=== PATIENT | female | born 1945 | race Caucasian/White ===

== ENCOUNTER → 2017-11-21 09:04 | Outpatient (CLI) | payer MEDICARE, SELFPAY ==
[2017-11-21 09:46] LABS: Add Manual Diff / Slide Review NO; Basophils Percent Auto 0.6 % (0-2); Eosinophils Percent Auto 1.9 % (2-4); Hematocrit 44.4 % (36-46); Hemoglobin 15.3 g/dL (12.0-16.0); Lymphocytes Percent Auto 26.3 % (25-40); Mean Corpuscular HGB Conc 34.4 % (30-36); Mean Corpuscular Hemoglobin 33.3 PG (26-34); Mean Corpuscular Volume 96.8 fL (80-100); Neutrophils Absolute Auto 4700 /uL (3000-5900); Neutrophils Percent Auto 64.2 % (50-75); Platelet Count 239 X10^3/uL (150-400); Red Blood Cell Count 4.59 X10^6/uL (4.0-5.2); Red Cell Distribution Width 14.8 % (11.6-14.8); White Blood Cell Count 7.3 X10^3/uL (4.5-11.0)
[2017-11-21 09:47] LABS: Appearance Urine UA CLEAR; Bilirubin Urine UA NEGATIVE (NEGATIVE); Color Urine UA YELLOW; Glucose Urine UA NEGATIVE (Negative); Ketones Urine UA NEGATIVE (NEGATIVE); Leukocyte Esterase Urine UA TRACE (NEGATIVE); Nitrite Urine UA Negative (Negative); Occult Blood Urine UA NEGATIVE (Negative); Protein Urine UA NEGATIVE (Negative); Urobilinogen Urine UA 0.2 E.U./dL (0.2); pH Urine UA 5.5 (4.5-8.0)
[2017-11-21 09:49] LABS: RBC Urine None Seen (0-5/HPF)
[2017-11-21 10:13] LABS: Amorphous Sediment Urine 1+; Bacteria Urine Few (2-10); Culture Indicated Urine Cult Not Indicated; Mucus Urine 2+ (Negative); Squamous Epithelial Cell Urine 10-30 /HPF; WBC Urine 0-1/HPF (0-5/HPF)
[2017-11-21 10:24] LABS: Alanine Aminotransferase 32 IU/L (9-52); Albumin 4.4 g/dL (3.5-5.0); Albumin Globulin Ratio 1.4 (1.0-2.8); Alkaline Phosphatase 83 U/L (38-126); Aspartate Aminotransferase 41 IU/L (14-36); BUN Creatinine Ratio 18.8 (6-22); Bilirubin Total 0.7 mg/dL (0.2-1.3); Calcium 9.7 mg/dL (8.4-10.2); Cholesterol 179 mg/dL (140-199); Estimated Glomerular Filt Rate > 60.0 mL/min (>60); Globulin 3.2 g/dL (1.7-4.1); Glucose 96 mg/dL (80-110); HDL Cholesterol 53 mg/dL (40-60); HEMOLYSIS < 15 (0-50); LDL Cholesterol Calculated 103 mg/dL (<100); Potassium 4.3 mmol/L (3.4-5.1); Sodium 142 mmol/L (137-145); Total Protein 7.6 g/dL (6.3-8.2); Triglycerides 114 mg/dL (35-150)
[2017-11-21 10:48] LABS: Thyroid Stimulating Hormone 3.87 uIU/mL (0.47-4.68)
== END ==
PROVIDERS: Family Provider Family Medicine; PCP Family Medicine; Visit Provider Family Medicine
DX: E78.5 Hyperlipidemia, unspecified (principal); Z51.81 Encounter for therapeutic drug level monitoring; I48.92 Unspecified atrial flutter
CPT/HCPCS: 36415; 80053; 80061; 81003; 81015; 84443; 85025

== ENCOUNTER → 2018-11-06 08:53 | Outpatient (CLI) | payer MEDICARE, SELFPAY ==
--- NOTE | 2018-11-06 08:56 | DI.RAD.S_ITS ---
PROCEDURE: XR CHEST 2V INDICATIONS: cough and shortness of breath TECHNIQUE: 2 views of the chest were acquired. COMPARISON: None. FINDINGS: Surgical changes and devices: None. Lungs and pleura: Lungs are hyperinflated and demonstrate coarse interstitial markings bilaterally diffusely. Small ovoid parenchymal opacity in the right lateral lower lung. No pleural effusions or pneumothorax. Mediastinum: Mediastinal contours are normal. Mildly prominent pulmonary arteries. Heart size is normal. Bones and chest wall: No suspicious bony abnormalities. Soft tissues appear unremarkable. IMPRESSION: 1. Hyperinflation with coarse interstitial markings suggests emphysema/chronic obstructive pulmonary disease. 2. Small ovoid right lower lobe parenchymal opacity may be rib end. However given the emphysematous changes, CT of the chest to exclude neoplasm is recommended. Dictated by: Prabha Vela M.D. on 11/06/2018 at 9:35 Approved by: Prabha Vela M.D. on 11/06/2018 at 9:38
[2018-11-06 10:26] LABS: Add Manual Diff / Slide Review NO; Basophils Absolute Auto 100 /uL (0-100); Basophils Percent Auto 0.5 % (0-2); Eosinophils Absolute Auto 200 /uL (0-450); Eosinophils Percent Auto 1.7 % (2-4); Hematocrit 45.2 % (36-46); Lymphocytes Absolute Auto 2100 /uL (1100-4500); Lymphocytes Percent Auto 20.1 % (25-40); Mean Corpuscular HGB Conc 33.1 % (30-36); Mean Corpuscular Hemoglobin 32.6 PG (26-34); Mean Corpuscular Volume 98.5 fL (80-100); Monocytes Absolute Auto 600 /uL (0-900); Monocytes Percent Auto 6.1 % (3-14); Neutrophils Absolute Auto 7500 /uL (1500-7000); Neutrophils Percent Auto 71.6 % (50-75); Platelet Count 269 X10^3/uL (150-400); Red Blood Cell Count 4.59 X10^6/uL (4.0-5.2); White Blood Cell Count 10.5 X10^3/uL (4.5-11.0)
[2018-11-06 10:52] LABS: Alanine Aminotransferase 22 IU/L (9-52); Albumin 4.2 g/dL (3.5-5.0); Albumin Globulin Ratio 1.2 (1.0-2.8); Alkaline Phosphatase 73 U/L (38-126); Aspartate Aminotransferase 28 IU/L (14-36); Bilirubin Total 0.6 mg/dL (0.2-1.3); Blood Urea Nitrogen 14 mg/dL (7-17); Calcium 9.4 mg/dL (8.4-10.2); Carbon Dioxide 25 mmol/L (22-32); Chloride 105 mmol/L (98-107); Cholesterol 171 mg/dL (140-199); Estimated Glomerular Filt Rate 54.5 mL/min (>60); Globulin 3.5 g/dL (1.7-4.1); Glucose 88 mg/dL (80-110); HDL Cholesterol 46 mg/dL (40-60); HEMOLYSIS < 15 (0-50); LDL Cholesterol Calculated 97 mg/dL (<100); Potassium 4.1 mmol/L (3.4-5.1); Sodium 140 mmol/L (137-145); Total Protein 7.7 g/dL (6.3-8.2); Triglycerides 139 mg/dL (35-150)
[2018-11-06 11:19] LABS: Thyroid Stimulating Hormone 4.71 uIU/mL (0.47-4.68)
[2018-11-06 11:41] LABS: Appearance Urine UA CLEAR; Bilirubin Urine UA NEGATIVE (NEGATIVE); Color Urine UA YELLOW; Glucose Urine UA NEGATIVE (Negative); Ketones Urine UA NEGATIVE (NEGATIVE); Leukocyte Esterase Urine UA NEGATIVE (NEGATIVE); Nitrite Urine UA NEGATIVE (Negative); Occult Blood Urine UA NEGATIVE (Negative); Protein Urine UA TRACE (Negative); Specific Gravity Urine UA 1.025 (1.000-1.035); Urobilinogen Urine UA 0.2 E.U./dL (0.2)
== END ==
PROVIDERS: Family Provider Family Medicine; PCP Family Medicine; Visit Provider Family Medicine
DX: J44.9 Chronic obstructive pulmonary disease, unspecified (principal); R05 Cough; R06.02 Shortness of breath; E78.5 Hyperlipidemia, unspecified; I10 Essential (primary) hypertension; Z51.81 Encounter for therapeutic drug level monitoring
CPT/HCPCS: 36415; 71046; 80053; 80061; 81003; 84443; 85025

== ENCOUNTER → 2018-11-12 13:40 | Outpatient (CLI) | payer MEDICARE, SELFPAY ==
--- NOTE | 2018-11-12 13:45 | DI.CT.S_ITS ---
PROCEDURE: CT CHEST W CON INDICATIONS: lung nodule TECHNIQUE: After the administration of intravenous contrast, 5 mm thick sections acquired from the pulmonary apices to the posterior costophrenic angles. 7 mm thick coronal and sagittal MIP reformats were acquired. For radiation dose reduction, the following was used: automated exposure control, adjustment of mA and/or kV according to patient size. COMPARISON: [facility], CR, XR CHEST 2V, 11/06/2018, 9:06. FINDINGS: Image quality: Excellent. Lungs and pleura: There is severe central emphysema. A 1.7 cm subpleural nodular densities present in the right lower lobe. There is diffuse interstitial prominence with subpleural septal thickening and mild fibrosis in upper lobes. No acute air space opacities. No pleural effusions or pneumothorax. There is narrowing of the right lower lobe bronchus from compression by a central mass. There is left infrahilar atelectasis. Mediastinum: Heart size is normal. No pericardial effusion. There is a 3.3 x 3.2 cm mass in the posterior mediastinum extending to the left infrahilar region. Thoracic aorta and central pulmonary arteries are normal in size. Esophagus is normal in caliber. Small hiatal hernia. Bones and chest wall: No suspicious bony lesions. No vertebral body compression fractures. No axillary or supraclavicular adenopathy by size criteria. Thyroid gland is normal. Abdomen: Visualized upper abdominal solid organs appear normal. Upper abdominal bowel loops are normal in caliber. IMPRESSION: 1. A 3.3 x 3.2 cm mass in the posterior mediastinum extending to the left infrahilar region causing narrowing of the left lower lobe bronchus and left infrahilar atelectasis. Differential diagnoses include central lung mass versus lymphadenopathy. Recommend PET CT for further torsion. 2. A 1.7 cm subpleural nodule in the right lower lobe. This can be evaluated by PET/CT at the same time. Alternatively, a short-term followup CT in 3 months may be obtained. 3. Severe emphysema. 4. Small hiatal hernia. Fleischner Society criteria for SOLID lung nodule followup. Nodule size (mm)Low-risk patientHigh-risk patient?4No follow-up neededFollow-up at 12 mo; if no change, no further follow-up>[id number] CT at 12 mo; if no change, no further follow-up needed.Initial follow-up CT at 6-12 mo, then 18-24 mo if no change. >6-8Initial follow-up CT at 6-12 mo, then 18-24 mo if no change. Initial follow-up CT at 3-6 mo, then 9-12 mo and 24 mo if no change. >8Follow-up CT at 3, 9, 24 mo. Or PET and/or biopsy.Same as for low-risk pts. Dictated by: Estelle Carroll M.D. on 11/12/2018 at 16:36 Approved by: Estelle Carroll M.D. on 11/12/2018 at 16:51
== END ==
PROVIDERS: Family Provider Family Medicine; PCP Family Medicine; Visit Provider Family Medicine
DX: R91.1 Solitary pulmonary nodule (principal); R91.8 Other nonspecific abnormal finding of lung field; J43.8 Other emphysema; J98.11 Atelectasis; K44.9 Diaphragmatic hernia without obstruction or gangrene
CPT/HCPCS: 71260; Q9967

== ENCOUNTER → 2018-12-07 09:45 | Outpatient (CLI) | payer MEDICARE, SELFPAY ==
--- NOTE | 2018-12-07 09:47 | DI.RAD.S_ITS ---
PROCEDURE: XR CHEST 2V INDICATIONS: increased SOB TECHNIQUE: 2 views of the chest were acquired. COMPARISON: [facility], CR, XR CHEST 2V, 11/06/2018, 9:06. FINDINGS: Surgical changes and devices: None. Lungs and pleura: Lungs are abnormal with a chronic interstitial prominence and relatively large lung volumes on the lateral view, likely reflecting prior smoking history. No pleural effusions or pneumothorax. Mediastinum: Mediastinal contours are normal. Heart size is normal. Bones and chest wall: No suspicious bony abnormalities. Soft tissues appear unremarkable. IMPRESSION: Presumed prior smoking history and COPD, no source of worsening shortness of breath was found otherwise. Dictated by: Anival Taylor M.D. on 12/07/2018 at 10:05 Approved by: Anival Taylor M.D. on 12/07/2018 at 10:06
== END ==
PROVIDERS: PCP Family Medicine
DX: C34.90 Malignant neoplasm of unspecified part of unspecified bronchus or lung (principal); R06.02 Shortness of breath
CPT/HCPCS: 71046

== ENCOUNTER → 2018-12-14 12:11 | Outpatient (CLI) | payer MEDICARE, SELFPAY ==
--- NOTE | 2018-12-14 12:14 | DI.RAD.S_ITS ---
PROCEDURE: XR CHEST 2V INDICATIONS: hypoxia TECHNIQUE: 2 views of the chest were acquired. COMPARISON: [facility], CT, CT CHEST W CON, 11/12/2018, 13:43. [facility], CR, XR CHEST 2V, 12/07/2018, 9:49. FINDINGS: Surgical changes and devices: None. Lungs and pleura: There is hyperinflation of the lungs with flattening of the hemidiaphragms compatible with COPD. Bilateral interstitial prominence is redemonstrated with a basilar predominance. Findings are similar to the prior study. No pleural effusions or pneumothorax. Mediastinum: Mediastinal contours are normal. Heart size is normal. Bones and chest wall: No suspicious bony abnormalities. Soft tissues appear unremarkable. IMPRESSION: 1. Findings compatible with COPD redemonstrated. No acute consolidation. Dictated by: Zay Fan M.D. on 12/14/2018 at 12:50 Approved by: Zay Fan M.D. on 12/14/2018 at 12:50
== END ==
PROVIDERS: PCP Family Medicine; Visit Provider Family Medicine
DX: C34.02 Malignant neoplasm of left main bronchus (principal); R09.02 Hypoxemia; J44.9 Chronic obstructive pulmonary disease, unspecified
CPT/HCPCS: 71046

== ENCOUNTER → 2018-12-15 10:08 | Outpatient (CLI) | payer MEDICARE, SELFPAY ==
--- NOTE | 2018-12-15 10:09 | DI.CT.S_ITS ---
PROCEDURE: CT HEAD/BRAIN WO/W CON INDICATIONS: lung cancer, staging TECHNIQUE: 4.5 mm thick angled axial sections acquired from the foramen magnum to the vertex both before and after the administration of intravenous contrast, with coronal and sagittal reformats. For radiation dose reduction, the following was used: automated exposure control, adjustment of mA and/or kV according to patient size. COMPARISON: [facility], CR, XR CHEST 2V, 12/14/2018, 12:15. [facility], CT, CT CHEST W CON, 11/12/2018, 13:43. FINDINGS: Image quality: Diagnostic, with note made of motion artifact. CSF spaces: Basal cisterns are patent. No extra-axial fluid collections. Ventricles are symmetric in size and shape. Brain: No midline shift. No intracranial bleeds or masses. No abnormal intracranial enhancement. There is cerebral volume loss for age. There is periventricular white matter chronic small vessel ischemic change. There is intracranial internal carotid artery atherosclerosis. Skull and face: Calvarium and visualized facial bones appear intact, without suspicious lesions. Sinuses: Visualized sinuses and mastoids are clear. IMPRESSION: Limited study demonstrating no masses or abnormal enhancement. If there is strong clinical concern for intracranial metastatic disease, please consider a dedicated brain MRI, without and with contrast for further evaluation (assuming that there is no contraindication). Dictated by: Chang Barry M.D. on 12/15/2018 at 12:03 Approved by: Chang Barry M.D. on 12/15/2018 at 12:05
[2018-12-15 11:45] LABS: BUN Creatinine Ratio 19.1 (6-22); Blood Urea Nitrogen 21 mg/dL (7-17); Calcium 9.3 mg/dL (8.4-10.2); Carbon Dioxide 27 mmol/L (22-32); Chloride 103 mmol/L (98-107); Estimated Glomerular Filt Rate 48.8 mL/min (>60); Glucose 81 mg/dL (80-110); HEMOLYSIS < 15 (0-50); Potassium 4.4 mmol/L (3.4-5.1); Sodium 139 mmol/L (137-145)
== END ==
LOC: CT 10:09 → LAB 10:09
PROVIDERS: PCP Family Medicine
DX: C34.90 Malignant neoplasm of unspecified part of unspecified bronchus or lung (principal); C34.32 Malignant neoplasm of lower lobe, left bronchus or lung
CPT/HCPCS: 36415; 70470; 80048; Q9967

== ENCOUNTER → 2019-01-28 09:08 | Outpatient (CLI) | payer MEDICARE, SELFPAY ==
--- NOTE | 2019-01-28 | DI.ECHO.S_ITS ---
[facility] +---------+ : : [address] : [place] : : : : [id number] : : : : Phone: [phone]+ Echocardiogram Report + + :Name: REGINO LOPEZ Study Date: 01/28/2019 Height: 65 in : :[facility] Weight: 148 lb : : Gender: Female BSA: 1.7 m2 : :: 1945 Age: 73 yrs BP: 120/84 mmHg: :Reason For Study: Atrial fibrillation - paroxysmal : :Ordering Physician: Lesli : :Hortencia Galan Performed By: Laura Tapia : + + Interpretation Summary 1) Normal left ventricular size with mildly reduced left ventricular function (EF about 45%). 2) Normal right ventricular size and low normal function. 3) No significant valvular abnormalities. 4) The right ventricular systolic pressure is estimated to be at least 48 mmHg based on an estimated right atrial pressure of 3 mm Hg. 5) No prior Echo available for comparison. Procedure: A two-dimensional transthoracic echocardiogram with color flow and Doppler was performed. There is no prior echocardiogram noted for this patient. The patient was in normal sinus rhythm during the exam. Left Ventricle: The left ventricle is normal in size. There is normal left ventricular wall thickness. There is no ventricular septal defect visualized. Left ventricular ejection fraction is estimated to be 45 +/- 5%. There is mild global hypokinesis of the left ventricle. E/A is 0.55, E/e' average is 11.8. Right Ventricle: The right ventricle is normal size. Right ventricular systolic function is at the lower limits of normal. Atria: Both atria are normal in size. There is no Doppler evidence for an interatrial shunt. Mitral Valve: The mitral valve is normal in structure and function. There is trace mitral regurgitation. Aortic Valve: The aortic valve is normal in structure and function. There is no aortic valve stenosis. No aortic regurgitation is present. Tricuspid Valve: The tricuspid valve leaflets are thin and pliable. There is mild tricuspid regurgitation. The right ventricular systolic pressure is estimated to be at least 48 mmHg based on an estimated right atrial pressure of 3 mm Hg. Pulmonic Valve: The pulmonic valve leaflets are thin and pliable; valve motion is normal. There is trace pulmonic regurgitation. Great Vessels: The aortic root is normal size. The ascending aorta is normal in size. The IVC is of normal diameter and collapses greater than 50% with a sniff. This suggests a low right atrial pressure of 3 mm Hg. Pericardium/ Pleura There is no pericardial effusion. MMode/2D Measurements & Calculations LVIDd: 4.3 cm LVOT diam: 2.0 cm LVIDs: 3.8 cm Ao root diam: 3.3 cm FS: 12.8 % Aortic Jxn: 2.0 cm EPSS: 0.79 cm asc Aorta Diam: 3.2 cm IVSd: 0.81 cm LVPWd: 0.79 cm LV ramon. diameter/BSA (cm/m^2): 2.5 LV sys. diameter/BSA (cm/m^2): 2.2 LA A2 area: 13.4 cm2 RA long axis: 3.5 cm LA A4 area: 16.0 cm2 RA area: 9.5 cm2 LA length (vol): 4.2 cm RA vol: 21.8 ml LA vol: 43.1 ml RA : 12.5 ml/m2 LA vol index: 24.8 ml/m2 IVC diam: 1.1 cm RVD1 (basal): 3.8 cm RVD2 (mid): 2.7 cm TAPSE: 1.6 cm Doppler Measurements & Calculations Ao V2 max: 102.2 cm/sec LVOT Max Juan: 65.8 cm/sec Ao V2 mean: 62.7 cm/sec LV V1 max P.7 mmHg Ao max P.2 mmHg LV V1 VTI: 13.9 cm Ao mean P.8 mmHg VASQUEZ(I,D): 2.5 cm2 Ao V2 VTI: 17.4 cm VASQUEZ(V,D): 2.0 cm2 sev ratio: 0.80 VASQUEZ indexed to BSA (cm^2/m^2): 1.4 MV E max juan: 40.8 cm/sec TR max juan: 333.8 cm/sec MV A max juan: 73.6 cm/sec TR max P.6 mmHg MV E/A: 0.55 PA V2 max: 53.1 cm/sec Med Peak E' Juan: 3.8 cm/sec PA V2 mean: 37.1 cm/sec E/E' med: 10.8 PA mean P.61 mmHg Lat Peak E' Juan: 3.2 cm/sec PA Accel Time: 0.12 sec E/E' lat: 12.9 E/e' average: 11.8 MV dec time: 0.26 sec MV P1/2t: 77.5 msec MV P1/2t max juan: 41.6 cm/sec SV(LVOT): 43.1 ml MVA(P1/2t): 2.8 cm2 Reading Physician:04:31 PM
== END ==
PROVIDERS: PCP Family Medicine; Visit Provider Internal Medicine Cardiovascular Disease
DX: I07.1 Rheumatic tricuspid insufficiency (principal); I48.0 Paroxysmal atrial fibrillation
CPT/HCPCS: 93306

== ENCOUNTER → 2019-03-30 10:53 | Outpatient (CLI) | payer MEDICARE, SELFPAY ==
[2019-03-30 11:11] LABS: Add Manual Diff / Slide Review NO; Basophils Absolute Auto 0 /uL (0-100); Basophils Percent Auto 0.5 % (0-2); Eosinophils Absolute Auto 100 /uL (0-450); Eosinophils Percent Auto 1.1 % (2-4); Hematocrit 42.3 % (36-46); Hemoglobin 14.3 g/dL (12.0-16.0); Lymphocytes Absolute Auto 400 /uL (1100-4500); Lymphocytes Percent Auto 5.8 % (25-40); Mean Corpuscular HGB Conc 33.8 % (30-36); Mean Corpuscular Hemoglobin 32.8 PG (26-34); Mean Corpuscular Volume 97.1 fL (80-100); Monocytes Absolute Auto 400 /uL (0-900); Monocytes Percent Auto 6.3 % (3-14); Neutrophils Absolute Auto 5900 /uL (1500-7000); Neutrophils Percent Auto 86.3 % (50-75); Platelet Count 223 X10^3/uL (150-400); Red Blood Cell Count 4.36 X10^6/uL (4.0-5.2); Red Cell Distribution Width 15.8 % (11.6-14.8); White Blood Cell Count 6.9 X10^3/uL (4.5-11.0)
[2019-03-30 11:18] LABS: INR 4.3 (0.9-1.3); Prothrombin Time 50.4 SECONDS (10.1-12.7)
[2019-03-30 11:23] LABS: Alanine Aminotransferase 15 IU/L (9-52); Albumin 4.2 g/dL (3.5-5.0); Albumin Globulin Ratio 1.4 (1.0-2.8); Alkaline Phosphatase 73 U/L (38-126); Aspartate Aminotransferase 22 IU/L (14-36); Bilirubin Total 0.4 mg/dL (0.2-1.3); Blood Urea Nitrogen 18 mg/dL (7-17); Calcium 9.8 mg/dL (8.4-10.2); Carbon Dioxide 26 mmol/L (22-32); Chloride 104 mmol/L (98-107); Estimated Glomerular Filt Rate 54.5 mL/min (>60); Globulin 3.1 g/dL (1.7-4.1); Glucose 100 mg/dL (80-110); HEMOLYSIS < 15 (0-50); Potassium 4.7 mmol/L (3.4-5.1); Sodium 138 mmol/L (137-145); Total Protein 7.3 g/dL (6.3-8.2)
== END ==
PROVIDERS: PCP Family Medicine
DX: C34.90 Malignant neoplasm of unspecified part of unspecified bronchus or lung (principal)
CPT/HCPCS: 36415; 80053; 85025; 85610

== ENCOUNTER → 2019-03-30 11:23 | Outpatient (CLI) | payer MEDICARE, SELFPAY ==
--- NOTE | 2019-03-30 | DI.RAD.S_ITS ---
PROCEDURE: [place] GUIDED PICC PLACEMENT INDICATIONS: ... COMPARISON: None. FINDINGS: PICC was placed by the intravenous therapy team from the right side. Fluoroscopic spot film demonstrates the tip of PICC projecting to the area of lower SVC. IMPRESSION: Tip of PICC projects to the area of lower SVC. Dictated by: Chuck Mendieta M.D. on 03/30/2019 at 15:04 Approved by: Chuck Mendieta M.D. on 03/30/2019 at 15:04
== END ==
PROVIDERS: PCP Family Medicine
DX: Z45.2 Encounter for adjustment and management of vascular access device (principal); C34.90 Malignant neoplasm of unspecified part of unspecified bronchus or lung
CPT/HCPCS: 36415; 36573; 80053; 85025; 85610

== ENCOUNTER → 2019-04-02 11:35 | Outpatient (CLI) | payer MEDICARE, SELFPAY ==
--- NOTE | 2019-04-02 | DI.CT.S_ITS ---
PROCEDURE: CT CHEST W CON INDICATIONS: Lung cancer restaging TECHNIQUE: After the administration of intravenous contrast, 5 mm thick sections acquired from the pulmonary apices to the posterior costophrenic angles. 1 mm axial lung, 5 mm thick coronal and sagittal reformats and 7 mm axial MIP were acquired. For radiation dose reduction, the following was used: automated exposure control, adjustment of mA and/or kV according to patient size. COMPARISON: [facility], CT, CT CHEST WITH CONTRAST, 12/30/2018, 11:53. [facility], CT, CT CHEST W CON, 11/12/2018, 13:43. FINDINGS: Image quality: Excellent. Lungs and pleura: Biapical scarring is seen. Advanced centrilobular emphysema is again noted. Thickening along the septa and periphery of bilateral lung jeter are seen consistent with interstitial pulmonary fibrosis. Ill-defined masslike consolidation involving posterior aspect of right lower lobe is seen, measures up to 2.7 x 1.9 cm in size series 3 image 234 compared to 1.9 x 1.7 cm in size on previous study. Patient's known mass lesion involving medial left lung parenchyma contiguous with mediastinum and left hilar adenopathy is again seen, now measures approximately 5 x 5.6 cm in size compared to 5.6 x 5.9 cm on previous study. No pleural effusions or pneumothorax. Central and peripheral airways are patent and normal in caliber. Mediastinum: Heart size is normal. No pericardial effusion. No right hilar lymphadenopathy. Confluent in lymphadenopathy in left subcarinal space and left hilar region contiguous with patient's known medial left lung mass is noted. Thoracic aorta and central pulmonary arteries are normal in size. Esophagus is normal in caliber. No hiatal hernia. Bones and chest wall: No suspicious bony lesions. No vertebral body compression fractures. No axillary or supraclavicular adenopathy by size criteria. Thyroid gland is within normal limits. Abdomen: Visualized upper abdominal solid organs appear normal. Upper abdominal bowel loops are normal in caliber. Left renal cyst is again seen. IMPRESSION: 1. Patient's known medial left lung mass extending to involve left mediastinum and left hilum is slightly smaller in size compared to most recent CT study. There is interval slight increase in size of patient's known posterior right basilar masslike consolidation concerning for metastatic disease. 2. Moderate to severe centrilobular emphysema and early interstitial pulmonary fibrotic changes unchanged from prior study. No pleural effusion or pneumothorax. Airway is patent. Dictated by: David Burton M.D. on 04/02/2019 at 14:57 Approved by: David Burton M.D. on 04/02/2019 at 15:27
--- NOTE | 2019-04-02 | DI.RAD.S_ITS ---
PROCEDURE: [place] GUIDED PICC PLACEMENT INDICATIONS: PICC PLACEMENT COMPARISON: [facility] [place], , [place] PICC W FLUOROGUIDE, 03/30/2019, 12:17. FINDINGS: PICC was placed by the intravenous therapy team from the right side. Fluoroscopic spot film demonstrates the tip of PICC projecting to the area of lower SVC. IMPRESSION: Tip of PICC projects in the region of the lower SVC Dictated by: Chuck Mendieta M.D. on 04/02/2019 at 13:21 Approved by: Chuck Mendieta M.D. on 04/02/2019 at 13:21
== END ==
PROVIDERS: PCP Family Medicine
DX: C34.92 Malignant neoplasm of unspecified part of left bronchus or lung (principal); R91.1 Solitary pulmonary nodule; J43.2 Centrilobular emphysema; Z45.2 Encounter for adjustment and management of vascular access device
CPT/HCPCS: 36573; 71260; 76001; Q9967

== ENCOUNTER 2019-04-12 18:56 | Emergency (ER) | payer MEDICARE, SELFPAY ==
[2019-04-12 19:00] VITALS: BP 129/99; PULSE 94; RESP 18; TEMP 36.4; O2SAT 94
--- NOTE | 2019-04-12 19:11 | DI.CT.S_ITS ---
PROCEDURE: CT ABDOMEN PELVIS W CON INDICATIONS: pain, constipation, hx of lung CA TECHNIQUE: After the administration of intravenous contrast, 5 mm thick sections acquired from the diaphragm to the symphysis. 5 mm coronal and sagittal reformats were acquired. For radiation dose reduction, the following was used: automated exposure control, adjustment of mA and/or kV according to patient size. COMPARISON: [facility], CT, CT CHEST W CON, 04/02/2019, 12:31. [facility], NM, NM PET CT FUSION SKULL 2 THIGH, 11/25/2018, 15:34. FINDINGS: Image quality: Excellent. ABDOMEN: Lung bases: No change in mild bibasilar interstitial pulmonary opacity. Nodular density within the right posterior lung base measuring 20 mm is unchanged. Heart size is normal. Solid organs: Liver is normal in size and enhancement. Gallbladder is within normal limits. Biliary system is non dilated. Pancreas enhances normally. Spleen is normal in size and enhancement. No adrenal nodules. Bilateral renal cysts. Kidneys demonstrate otherwise normal size and enhancement, without hydronephrosis. Peritoneum and bowel: Small hiatal hernia. Small bowel loops are within normal limits. Appendix is normal. Colon is nondistended and fluid-filled. There is moderate thickening of the distal descending and proximal sigmoid colon. Mild pericolonic fat stranding surrounds a thickened segment of colon. No free fluid or air. Nodes and vessels: No retroperitoneal or mesenteric adenopathy by size criteria. Aorta and inferior vena cava are normal in size. Miscellaneous: No ventral hernias. PELVIS: Genitourinary: Urinary bladder is decompressed. Miscellaneous: No inguinal hernias or adenopathy. Bones: No suspicious bony lesions. No vertebral body compression fractures. IMPRESSION: 1. Left-sided colitis. Differential considerations include ischemia, infection, and inflammation. 2. No change in right posterior lung base nodule. 3. Small hiatal hernia. Dictated by: Isabel Lopez M.D. on 04/12/2019 at 19:54 Approved by: Isabel Lopez M.D. on 04/12/2019 at 19:57
[2019-04-12 19:19] LABS: Add Manual Diff / Slide Review NO; Basophils Absolute Auto 0 /uL (0-100); Basophils Percent Auto 0.3 % (0-2); Eosinophils Absolute Auto 200 /uL (0-450); Eosinophils Percent Auto 4.2 % (2-4); Hematocrit 42.5 % (36-46); Hemoglobin 14.6 g/dL (12.0-16.0); Lymphocytes Absolute Auto 500 /uL (1100-4500); Mean Corpuscular HGB Conc 34.3 % (30-36); Mean Corpuscular Hemoglobin 33.1 PG (26-34); Mean Corpuscular Volume 96.6 fL (80-100); Monocytes Absolute Auto 100 /uL (0-900); Monocytes Percent Auto 1.1 % (3-14); Neutrophils Absolute Auto 4300 /uL (1500-7000); Neutrophils Percent Auto 84.4 % (50-75); Platelet Count 179 X10^3/uL (150-400); Red Blood Cell Count 4.41 X10^6/uL (4.0-5.2); Red Cell Distribution Width 15.2 % (11.6-14.8); White Blood Cell Count 5.1 X10^3/uL (4.5-11.0)
[2019-04-12 19:21] LABS: Chloride 102 mmol/L (98-107)
--- NOTE | 2019-04-12 19:21 | ED.ABDPAIN ---
HPI - Abdominal Pain General Chief Complaint: Abdominal Pain Stated Complaint: Constipation Time Seen by Provider: 04/12/19 19:06 Source: patient and EMS Mode of arrival: EMS Limitations: no limitations History of Present Illness HPI narrative: Patient is a 73-year-old female with history of atrial fibrillation and lung cancer who presents with abdominal pain. She states that she has not had a bowel movement for week. She frequently has constipation she has been taking [id number] stool softener she took magnesium citrate today at 3:00 p.m. she still has not had a bowel. She denies feeling any pressure in her rectum although sometimes she does feel a but nothing comes out. She denies any nausea but is taking Zofran. She has no heart palpitations chest pain or dizziness. MD complaint: abdominal pain Onset (ago): week(s) (1) Pain Consistency: constant Related Data Home Medications Medication Instructions Recorded Confirmed cholecalciferol (vitamin D3) 1 tab PO QDAY #0 11/04/16 04/06/19 [Vitamin D3] diphenhydramine HCl [Benadryl 25 mg PO HS #0 11/04/16 04/06/19 Allergy] famotidine [Pepcid AC] 20 mg PO HS #0 11/04/16 04/06/19 vitamin B complex [B 1 tab PO QDAY #0 11/04/16 04/06/19 Complex-Vitamin B12] magnesium 250 mg PO DAILY 11/25/17 04/06/19 fluticasone furoate 200 1 inhalation INHALATION DAILY 12/14/18 04/06/19 mcg-vilanterol 25 mcg/dose inhalation powder ibuprofen 800 mg tablet 800 mg PO Q6H PRN 01/13/19 04/06/19 Previous Rx's Medication Instructions Recorded bupropion HCl 150 mg tablet,12 hr 150 mg PO BID #60 each 11/02/18 sustained-release metoprolol tartrate 25 mg tablet 25 mg PO BID #180 tab 12/08/[address] #1 ea 12/14/18 lovastatin 20 mg tablet 20 mg PO BID #180 tab 03/05/19 warfarin 4 mg PO DAILY #60 tab 03/09/19 levofloxacin [Levaquin] 500 mg PO DAILY #7 tab 04/12/19 metronidazole [Flagyl] 500 mg PO Q8H #21 tab 04/12/19 Allergies Allergy/AdvReac Type Severity Reaction Status Date / Time codeine [CODEINE] Allergy Intermediate Vomiting Verified 04/12/19 19:15 morphine Allergy Intermediate Vomiting Verified 04/12/19 19:15 Review of Systems Review of Systems ROS Unobtainable: All systems reviewed & are unremarkable except as noted in HPI and below Constitutional Constitutional: Denies chills, Denies fever(s), Denies lethargy and Denies weakness Eyes Eyes: Denies change in vision, Denies eye discharge, Denies irritation and Denies loss of vision ENT Ears, Nose, Mouth, and Throat: Denies change in voice, Denies neck pain and Denies sore throat Cardiovascular Cardiovascular: Denies chest pain, Denies irregular heart rhythm, Denies lightheadedness, Denies palpitations and Denies orthopnea Respiratory Respiratory: Reports as per HPI Gastrointestinal Gastrointestinal: Reports as per HPI Musculoskeletal Musculoskeletal: Denies neck pain Integumentary/Breasts Skin/Breast: Denies pruritus, Denies erythema, Denies rash and Denies wounds Neurologic Neurologic: Denies loss of vision and Denies weakness Endocrine Endocrine: Denies palpitations Patient History Medical History Medical History Allergy (Chronic Unknown) Atrial fibrillation (Chronic Unknown) COPD (chronic obstructive pulmonary disease) (Chronic Unknown) GERD (gastroesophageal reflux disease) (Chronic ~2013) Hyperlipidemia (Chronic Unknown) Squamous cell lung cancer (Acute) Social History Social History Smoking Status: Current every day smoker tobacco type: cigarettes alcohol intake frequency: 0-2 drinks per day Substance Use Type: does not use Exam Initial Vital Signs Initial Vital Signs: Vital Signs Temperature 97.5 F L 04/12/19 19:00 Pulse Rate 94 H 04/12/19 19:00 Respiratory Rate 18 04/12/19 19:00 Blood Pressure 129/99 H 04/12/19 19:00 Pulse Oximetry 94 04/12/19 19:00 GENERAL: Alert chronically ill elderly female no acute distress HEENT: Head atraumatic,EOMI, pupils reactive, face symmetric, dry mucous membranes CARDIOVASCULAR: Regular rate and rhythm without murmurs, rubs or gallops. RESPIRATORY: Breath sounds equal bilaterally, no wheezes rales or rhonchi. ABDOMEN: Soft, tenderness across lower abdomen no guarding no rebound normal bowel sounds EXTREMITIES: Normal range of motion, no clubbing or edema. Neurovascularly intact NEUROLOGICAL: Alert and oriented x4.Normal gait and speech. SKIN: Warm, dry, no laceration, no petechiae, no rashes or lesions. Course Orders Ordered: ED Orders 04/12/19 18:40 Complete Blood Count AUTO DIFF Stat Comprehensive Metabolic Panel Stat Lipase Stat 04/12/19 19:11 CT abdomen pelvis w con Stat Discontinued Medications Albuterol/Ipratropium (Duoneb) 3 ml INH NOW ONE Stop: 04/12/19 20:28 Last Admin: 04/12/19 20:33 Dose: 3 ml Documented by: KRISH Sodium Chloride (Normal Saline 0.9%) 1,000 mls @ 1,000 mls/hr IV BOLUS ONE Stop: 04/12/19 20:07 Last Infusion: 04/12/19 20:28 Dose: 0 mls/hr Documented by: Admin: 04/12/19 19:47 Dose: 1,000 mls/hr Documented by: CHLOÉ Ketorolac Tromethamine (Toradol) 30 mg IV NOW ONE Stop: 04/12/19 19:09 Last Admin: 04/12/19 19:46 Dose: 30 mg Documented by: CHLOÉ Levofloxacin (Levaquin) 500 mg PO NOW ONE Stop: 04/12/19 20:28 Last Admin: 04/12/19 20:33 Dose: 500 mg Documented by: CHLOÉ Metronidazole (Metronidazole) 500 mg PO NOW ONE Stop: 04/12/19 20:28 Last Admin: 04/12/19 20:33 Dose: 500 mg Documented by: CHLOÉ Vital Signs Vital signs: Vital Signs - 8 hr 04/12/19 19:00 04/12/19 20:30 04/12/19 20:36 Temperature 97.5 F L Pulse Rate 94 H 96 H Respiratory Rate 18 20 Blood Pressure 129/99 H Blood Pressure [Left Arm] 130/72 Pulse Oximetry 94 98 93 MDM - Abdominal Pain Lab Data Attestation: I reviewed the patient's lab results. Result diagrams: 04/12/19 18:40 04/12/19 18:40 Labs: Lab Results 04/12/19 04/12/19 Range/Units 18:40 18:40 WBC 5.1 (4.5-11.0) X10^3/uL RBC 4.41 (4.0-5.2) X10^6/uL Hgb 14.6 (12.0-16.0) g/dL Hct 42.5 (36-46) % MCV 96.6 (80-100) fL MCH 33.1 (26-34) PG MCHC 34.3 (30-36) % RDW 15.2 H (11.6-14.8) % Plt Count 179 (150-400) X10^3/uL Neut % (Auto) 84.4 H (50-75) % Lymph % (Auto) 10.0 L (25-40) % [place] % (Auto) 1.1 L (3-14) % Eos % (Auto) 4.2 H (2-4) % Baso % (Auto) 0.3 (0-2) % Neut # (Auto) 4300 (4079-5721) /uL Lymph # (Auto) 500 L (0215-6913) /uL [place] # (Auto) 100 (0-900) /uL Eos # (Auto) 200 (0-450) /uL Baso # (Auto) 0 (0-100) /uL Sodium 137 (137-145) mmol/L Potassium 4.0 (3.4-5.1) mmol/L Chloride 102 (98-107) mmol/L Carbon Dioxide 22 (22-32) mmol/L BUN 23 H (7-17) mg/dL Creatinine 0.80 (0.52-1.04) mg/dL Estimated GFR > 60.0 (>60) mL/min BUN/Creatinine Ratio 28.8 H (6-22) Glucose 134 H (80-110) mg/dL Calcium 10.5 H (8.4-10.2) mg/dL Total Bilirubin 0.8 (0.2-1.3) mg/dL AST 38 H (14-36) IU/L ALT 32 (9-52) IU/L Alkaline Phosphatase 85 (38-126) U/L Total Protein 7.2 (6.3-8.2) g/dL Albumin 4.4 (3.5-5.0) g/dL Globulin 2.8 (1.7-4.1) g/dL Albumin/Globulin Ratio 1.6 (1.0-2.8) Lipase 21 L (23-300) U/L Imaging Data CT scan - abdomen: Radiologist's impression: PROCEDURE: CT ABDOMEN PELVIS W CON INDICATIONS: pain, constipation, hx of lung CA TECHNIQUE: After the administration of intravenous contrast, 5 mm thick sections acquired from the diaphragm to the symphysis. 5 mm coronal and sagittal reformats were acquired. For radiation dose reduction, the following was used: automated exposure control, adjustment of mA and/or kV according to patient size. COMPARISON: [facility], CT, CT CHEST W CON, 04/02/2019, 12:31. [facility], [place], [place] PET CT FUSION SKULL 2 THIGH, 11/25/2018, 15:34. FINDINGS: Image quality: Excellent. ABDOMEN: Lung bases: No change in mild bibasilar interstitial pulmonary opacity. Nodular density within the right posterior lung base measuring 20 mm is unchanged. Heart size is normal. Solid organs: Liver is normal in size and enhancement. Gallbladder is within normal limits. Biliary system is non dilated. Pancreas enhances normally. Spleen is normal in size and enhancement. No adrenal nodules. Bilateral renal cysts. Kidneys demonstrate otherwise normal size and enhancement, without hydronephrosis. Peritoneum and bowel: Small hiatal hernia. Small bowel loops are within normal limits. Appendix is normal. Colon is nondistended and fluid-filled. There is moderate thickening of the distal descending and proximal sigmoid colon. Mild pericolonic fat stranding surrounds a thickened segment of colon. No free fluid or air. Nodes and vessels: No retroperitoneal or mesenteric adenopathy by size criteria. Aorta and inferior vena cava are normal in size. Miscellaneous: No ventral hernias. PELVIS: Genitourinary: Urinary bladder is decompressed. Miscellaneous: No inguinal hernias or adenopathy. Bones: No suspicious bony lesions. No vertebral body compression fractures. IMPRESSION: 1. Left-sided colitis. Differential considerations include ischemia, infection, and inflammation. 2. No change in right posterior lung base nodule. 3. Small hiatal hernia. Dictated by: Isabel Lopez M.D. on 04/12/2019 at 19:54 ECG Data Attestation: I personally reviewed and interpreted this ECG as follows: Prior ECG tracings: available for review Interpretation: Sinus rhythm rate 108 p.r. interval [address] changes no T-wave inversions MDM Narrative Medical decision making narrative: The patient has no leukocytosis. CT does show colitis. She has had ongoing pain for about a week. At this time I do recommend antibiotics. She does have a history of C diff will place her on Levaquin and Flagyl. Patient overall is feeling better and reviewed able to go Discharge Plan Departure Patient Disposition: Home Clinical Impression: Colitis Discharge Date/Time: 04/12/19 20:58 Instructions: DI for Colitis Activity Restrictions/Additional Instructions: *You have been diagnosed with colitis *What to do: Increase fluid intake pain should improve as inflammation improves *Continue to take medications as directed--> SENT TO [facility] IN [place] Levaquin 500 mg once a day for 7 days Flagyl 500 mg 3 times a day for 7 days *Follow up with your primary care provider in 2-3 days *Return to ER if you should have increasing pain, vomiting, fevers, bloody stool, worsening diarrhea or any new, worsening or concerning symptoms Prescriptions: New metronidazole [Flagyl] 500 mg tablet 500 mg PO Q8H Qty: 21 RF: 0 levofloxacin [Levaquin] 500 mg tablet 500 mg PO DAILY Qty: 7 RF: 0 No Action magnesium 250 mg PO DAILY RF: 0 vitamin B complex [B Complex-Vitamin B12] 1 EACH tablet 1 tab PO QDAY Qty: 0 RF: 0 cholecalciferol (vitamin D3) [Vitamin D3] 2,000 UNIT tablet 1 tab PO QDAY Qty: 0 RF: 0 famotidine [Pepcid AC] 20 MG tablet 20 mg PO HS Qty: 0 RF: 0 diphenhydramine HCl [Benadryl Allergy] 25 MG tablet 25 mg PO HS Qty: 0 RF: 0 metoprolol tartrate 25 mg tablet 25 mg PO BID Qty: 180 RF: 0 lovastatin 20 mg tablet 20 mg PO BID Qty: 180 RF: 0 bupropion HCl [Wellbutrin SR] 150 mg tablet sustained-release 12 hr 150 mg PO BID Qty: 60 RF: 5 Breo Ellipta 200-25 mcg/dose blister with device 1 inhalation INHALATION DAILY RF: 0 (DME) Disabled parking permit Qty: 1 RF: 0 ibuprofen 800 mg tablet 800 mg PO Q6H PRN (Reason: Pain (Scale Score 4-6)) RF: 0 warfarin 2 mg Tablet 4 mg PO DAILY Qty: 60 RF: 3 Referrals: Polly Miller DO [Primary Care Provider] -
[2019-04-12 19:23] LABS: Alanine Aminotransferase 32 IU/L (9-52); Albumin 4.4 g/dL (3.5-5.0); Albumin Globulin Ratio 1.6 (1.0-2.8); Alkaline Phosphatase 85 U/L (38-126); Aspartate Aminotransferase 38 IU/L (14-36); BUN Creatinine Ratio 28.8 (6-22); Bilirubin Total 0.8 mg/dL (0.2-1.3); Blood Urea Nitrogen 23 mg/dL (7-17); Calcium 10.5 mg/dL (8.4-10.2); Carbon Dioxide 22 mmol/L (22-32); Estimated Glomerular Filt Rate > 60.0 mL/min (>60); Globulin 2.8 g/dL (1.7-4.1); Glucose 134 mg/dL (80-110); HEMOLYSIS 27 (0-50); Lipase 21 U/L (23-300); Sodium 137 mmol/L (137-145); Total Protein 7.2 g/dL (6.3-8.2)
[2019-04-12] MEDS: KETOROLAC 60 MG/2 ML VIAL 30 MG IV (19:46)
[2019-04-12] MEDS: SODIUM CHLORIDE 0.9% 1,000 ML 1000 ML IV (19:47)
[2019-04-12 20:30] VITALS: BP 130/72; PULSE 96; RESP 20; O2SAT 98
[2019-04-12] MEDS: ALBUTEROL/IPRATROPIUM 3 ML AMPUL INH (20:33)
[2019-04-12] MEDS: levoFLOXacin 250 MG TABLET 500 MG PO (20:33)
[2019-04-12] MEDS: metroNIDAZOLE 250 MG TABLET 500 MG PO (20:33)
[2019-04-12 20:36] VITALS: O2SAT 93
== END 2019-04-12 20:58 | disposition home or self-care (01) ==
PROVIDERS: Emergency Provider Emergency Medicine; PCP Family Medicine
DX: K52.9 Noninfective gastroenteritis and colitis, unspecified (principal); R10.9 Unspecified abdominal pain
CPT/HCPCS: 74177; 80053; 83690; 85025; 93005; 94640; 96361; 96374; 99283; 99285; J1885

== ENCOUNTER → 2019-04-19 13:48 | Outpatient (CLI) | payer MEDICARE, SELFPAY ==
[2019-04-19 15:09] LABS: Add Manual Diff / Slide Review YES; Hematocrit 34.3 % (36-46); Hemoglobin 11.8 g/dL (12.0-16.0); Mean Corpuscular HGB Conc 34.3 % (30-36); Mean Corpuscular Hemoglobin 33.4 PG (26-34); Mean Corpuscular Volume 97.3 fL (80-100); Platelet Count 146 X10^3/uL (150-400); Red Blood Cell Count 3.53 X10^6/uL (4.0-5.2); Red Cell Distribution Width 15.7 % (11.6-14.8)
[2019-04-19 15:15] LABS: White Blood Cell Count 0.9 X10^3/uL (4.5-11.0)
[2019-04-19 15:43] LABS: Neutrophils Absolute Manual 270 /uL (3000-5900); RBC Morphology Normal Morphology; Total Cells Counted 50
[2019-04-19 16:21] LABS: BUN Creatinine Ratio 16.7 (6-22); Blood Urea Nitrogen 10 mg/dL (7-17); Calcium 8.5 mg/dL (8.4-10.2); Carbon Dioxide 24 mmol/L (22-32); Chloride 108 mmol/L (98-107); Cholesterol 156 mg/dL (140-199); Estimated Glomerular Filt Rate > 60.0 mL/min (>60); Glucose 117 mg/dL (80-110); HDL Cholesterol 38 mg/dL (40-60); HEMOLYSIS < 15 (0-50); LDL Cholesterol Calculated 70 mg/dL (<100); Potassium 3.6 mmol/L (3.4-5.1); Sodium 139 mmol/L (137-145); Triglycerides 239 mg/dL (35-150)
== END ==
PROVIDERS: PCP Family Medicine; Visit Provider Internal Medicine Cardiovascular Disease
DX: E78.5 Hyperlipidemia, unspecified (principal); I48.0 Paroxysmal atrial fibrillation
CPT/HCPCS: 36415; 80048; 80061; 85025

== ENCOUNTER → 2019-06-09 11:53 | Outpatient (CLI) | payer MEDICARE, SELFPAY ==
--- NOTE | 2019-06-09 11:55 | DI.CT.S_ITS ---
PROCEDURE: CT CHEST W CON INDICATIONS: Lung cancer restaging TECHNIQUE: After the administration of intravenous contrast, 5 mm thick sections acquired from the pulmonary apices to the posterior costophrenic angles. 1 mm axial lung, 5 mm thick coronal and sagittal reformats and 7 mm axial MIP were acquired. For radiation dose reduction, the following was used: automated exposure control, adjustment of mA and/or kV according to patient size. COMPARISON: [facility], CT, CT CHEST WITH CONTRAST, 12/30/2018, 11:53. [facility], CT, CT CHEST W CON, 04/02/2019, 12:31. [facility], CT, CT CHEST W CON, 11/12/2018, 13:43. FINDINGS: Image quality: Excellent. Lungs and pleura: No acute air space opacities. A posterior right costophrenic sulcus lung lesion seen to be positive on PET CT scanning at the end of October 2018 has appreciably diminished in size, to approximately 1/2 of the prior volume, as response to therapy. Additionally, no new lesion has developed within the lung parenchyma. Severe emphysematous change again noted. No pleural effusions or pneumothorax. Central and peripheral airways are patent and normal in caliber. Mediastinum: Heart size is normal. No pericardial effusion. No new mediastinal or hilar adenopathy by size criteria. An area of malignant appearing adenopathy present involving the left hilum and left posterior mediastinum contiguously as sequentially diminished in size from 11/25/18 through 12/30/18 to the current examination. This runs immediately adjacent to the middle third of the esophagus, and currently measures only 2.5 x 1.9 cm in maximal transverse and AP dimension. Thoracic aorta and central pulmonary arteries are normal in size. Esophagus is normal in caliber. No hiatal hernia. Bones and chest wall: No suspicious bony lesions. No vertebral body compression fractures. No axillary or supraclavicular adenopathy by size criteria. Thyroid gland appears normal. Abdomen: Visualized upper abdominal solid organs appear normal. Upper abdominal bowel loops are normal in caliber. IMPRESSION: No new lesion has developed. Areas of previously identified malignancy as documented by nuclear medicine PET CT scanning and subsequent followup CT scanning are again seen, significantly diminished in size over time, and now small in size at the posterior costophrenic sulcus on the right, and at the left posterior mediastinum abutting the mid esophagus. Severe COPD. Dictated by: Anival Taylor M.D. on 06/09/2019 at 14:41 Approved by: Anival Taylor M.D. on 06/09/2019 at 14:46
== END ==
PROVIDERS: Family Provider Family Medicine; PCP Family Medicine
DX: C34.91 Malignant neoplasm of unspecified part of right bronchus or lung (principal); J44.9 Chronic obstructive pulmonary disease, unspecified
CPT/HCPCS: 71260; Q9967

== ENCOUNTER → 2019-06-15 13:27 | Outpatient (CLI) | payer MEDICARE, SELFPAY ==
--- NOTE | 2019-06-15 13:30 | DI.RAD.S_ITS ---
PROCEDURE: XR CHEST 2V INDICATIONS: lung cancer, increased SOB TECHNIQUE: 2 views of the chest were acquired. COMPARISON: [facility], , XR CHEST 2V, 12/14/2018, 12:15. FINDINGS: Surgical changes and devices: Right arm PICC is present, tip of which is in the mid SVC. Lungs and pleura: No change in mild basilar predominant reticulonodular density. No definite acute superimposed process. No pleural effusions or pneumothorax. Emphysema is present. Mediastinum: Mediastinal contours are normal. Heart size is normal. Bones and chest wall: No suspicious bony abnormalities. Soft tissues appear unremarkable. IMPRESSION: No evidence of acute process. Dictated by: Isabel Lopez M.D. on 06/15/2019 at 14:00 Approved by: Isabel Lopez M.D. on 06/15/2019 at 14:01
== END ==
PROVIDERS: Family Provider Family Medicine; PCP Family Medicine
DX: C34.90 Malignant neoplasm of unspecified part of unspecified bronchus or lung (principal); R06.02 Shortness of breath; J43.9 Emphysema, unspecified
CPT/HCPCS: 71046

== ENCOUNTER → 2019-08-04 13:40 | Oncology outpatient (ONC) | payer MEDICARE, SELFPAY ==
[2018-12-07 08:43] VITALS: BP 103/60; PULSE 70; RESP 22; TEMP 36.8; O2SAT 89
--- NOTE | 2018-12-07 10:18 | ONC.CONS ---
History of Present Illness - Data of Consult Consult date: 12/07/18 Primary Care Provider: Polly Miller, - Consult Narrative Narrative: Diagnosis: Squamous cell lung cancer, likely T2 N0 History of present illness: Radha Banks is a 73 year old female who is referred for further evaluation of a newly diagnosed lung cancer. Patient reports that she has had some shortness of breath that has been present for several years but over the last few months had been getting progressively worse. Because of that, she had a chest x-ray done on November 06 that showed a small right lower lobe nodule and a CT scan was recommended. That CT showed a large mass in the left hilum that measured approximately 3.2 cm. There was narrowing of the left bronchus. There is no obvious adenopathy. At the right base there was a smaller nodule as well. A PET-CT was performed that showed intense uptake in the left hilar mass. The right basilar mass had uptake of only 2.9. In addition, there was some uptake along the vocal cords. She was referred to pulmonology and had a biopsy done last . This reveals a squamous cell carcinoma. She is scheduled to see ENT for evaluation of the vocal cord uptake on Friday. Since her biopsy, she has had some hemoptysis. She also notes some worsening shortness of breath from her baseline. Her appetite has been fair. She has lost about 5 or 6 lb over the last few weeks that she attributes to stress. She has not noted any adenopathy. She is not having any pain in the chest or anywhere else. She does have some occasional headaches but denies any focal numbness or weakness. She is otherwise without complaint today. Her past medical history is notable for COPD. She has a history of atrial fibrillation. Hypercholesterolemia. She has had 2 previous episodes of anaphylaxis without obvious trigger. She takes Pepcid and Benadryl to prevent that. She has had some neuropathy in her feet for several years. She does have a history of exposure to TB from her father. She tells me that she has had prior lung nodules. She does use Spiriva and Flonase. She also takes bupropion. Her other medications include aspirin vitamin D lovastatin magnesium metoprolol and B vitamin. Family history is notable for her mother having had breast cancer. She had an aunt with ovarian cancer another aunt had cancer although she does not know what type. Social history: She is . She does smoke about a half a pack of cigarettes daily. She previously smoked about a pack. She has very rare alcohol use. 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 CC: Jaron Rosen MD Home Medications and Allergies Home Medications Medication Instructions Recorded Confirmed Type aspirin 325 mg PO QDAY #0 07/16/16 12/07/18 History cholecalciferol (vitamin D3) 1 tab PO QDAY #0 11/04/16 12/07/18 History [Vitamin D3] diphenhydramine HCl [Benadryl 25 mg PO HS #0 11/04/16 12/07/18 History Allergy] famotidine [Pepcid AC] 20 mg PO HS #0 11/04/16 12/07/18 History vitamin B complex [B 1 tab PO QDAY #0 11/04/16 11/27/18 History Complex-Vitamin B12] lovastatin 20 mg tablet 20 mg PO BID #180 tab 11/25/17 12/07/18 Rx magnesium 250 mg PO 11/25/17 11/27/18 History metoprolol tartrate 25 mg tablet 25 mg PO BID #180 tab 11/25/17 11/27/18 Rx bupropion HCl SR 150 mg tablet,12 150 mg PO BID #60 each 11/02/18 12/07/18 Rx hr sustained-release fluticasone propionate 50 1 spray NASAL BID #18.2 gram 11/02/18 12/07/18 Rx mcg/actuation nasal spray,suspension tiotropium bromide 18 mcg capsule 1 cap INHALATION DAILY #30 11/24/18 11/27/18 Rx with inhalation device inhalation Allergies Allergy/AdvReac Type Severity Reaction Status Date / Time codeine [CODEINE] Allergy Unknown Verified 11/27/18 17:47 Medical History - Medical, Surgical, Family History Medical History: Medical History (Updated 12/07/18 @ 10:29 by Jaron Rosen MD) Allergy Onset Date: Unknown Atrial fibrillation Onset Date: Unknown COPD (chronic obstructive pulmonary disease) Onset Date: Unknown GERD (gastroesophageal reflux disease) Onset Date: ~2012 Hyperlipidemia Onset Date: Unknown - Social History Smoking Status: Current every day smoker Review of Systems - Patient Self-Reported Symptoms SR Constitution: Fatigue/Malaise SR respiratory issues: Cough, Coughing blood SR Cardiovascular issues: Shortness of breath with activity or lying flat SR Musculoskeletal issues: Muscle weakness, Difficulty walking Exam Vital signs: Vital Signs Temp Pulse Resp BP Pulse Ox 12/07/18 08:43 98.2 F 70 22 103/60 89 L Intake and Output 12/06/18 12/07/18 12/07/18 23:59 07:59 15:59 Other: Weight 69.1 kg Patient Weight 12/07/18 23:59 Weight 69.1 kg - Constitutional positive no acute distress, positive thin Comments: She is in a wheelchair but in no acute distress. - Routine HEENT Exam Head: Present: normocephalic, atraumatic Eye: Present: EOMI, PERRL. Absent: conjunctival icterus, scleral injection ENT: Present: mucous membranes moist, oropharynx clear - Routine Neck Exam Present: supple. Absent: lymphadenopathy, thyromegaly - Routine Chest/Breast/Axilla Exam Chest wall exam standard: Absent: tenderness Axillae: Absent: lymphadenopathy - Routine Respiratory Exam Comments: Breath sounds are diminished more so on the left than on the right. I do not hear any wheezes or rales. There is no dullness to percussion. - Routine Cardiovascular Exam Present: RRR, S1, S2. Absent: murmur - Routine Abdominal Exam Present: soft, normoactive bowel sounds. Absent: tenderness, organomegaly, mass - Routine Extremities Exam Absent: cyanosis, clubbing, edema - Routine Back/Spine Exam Back/Spine: Absent: paraspinal tenderness, vertebral tenderness - Routine Skin Exam Present: intact. Absent: petechiae, rash - Routine Neurological Exam Present: alert, oriented X3, CN II-XII intact. Absent: motor deficit - Routine Psychiatric Exam Present: normal affect, normal thought process Results - Imaging Additional studies: Procedures Injection of steroid (02/20/13) Injection or infusion of other therapeutic or prophylactic substance (02/20/13) Assessment and Plan (1) Lung cancer Current visit: Yes Status: Acute 73-year-old woman with a new diagnosis of squamous cell carcinoma. This appears to be T2 N0. Her PET scan does demonstrate low degree of uptake and contralateral right basilar nodule. It is possible this may represent a 2nd cancer such as in situ carcinoma or perhaps an inflammatory lesion related to her prior TB exposure. Given its location, I think it would be difficult to biopsy. Will plan on following this lesion on subsequent CTs. If she does have evidence of growth or, then a biopsy would be indicated. She also has some uptake in a vocal cord and will undergo an ENT evaluation later this week. Today, reviewed the natural history and staging of lung cancer. I think her primary lung cancer should be best addressed by radiation. Will make referral to Radiation Oncology. Because of its size, she may be candidate for adjuvant chemotherapy after her radiation is complete. We will discuss that when she returns to clinic in about 6 weeks for follow-up. She has had some increased shortness of breath since her lung biopsy. We will plan on checking a chest x-ray today.
--- NOTE | 2019-01-04 13:01 | PC.NURSE ---
Per triage nurse Stephanie Robb of [facility], patient will need pain medication before starting radiation therapy there. She has a codeine allergy. Request put in to Dr. Rosen so that he can do a script for her to cloth picker in [place] on his clinic days at [facility].
--- NOTE | 2019-01-05 09:26 | PC.NURSE ---
Patient informed per telephone that vicodin prescription ready for her to [facility]. She voiced understanding and was informed that we are open until 5 pm.
--- NOTE | 2019-01-11 12:37 | PC.NURSE ---
This nurse informed patient per telephone of Dr. Rosen's verbal order that she may take 1.5 to 2 tablets of her vicodin as needed for the pain. She stated that the table for radiation is so hard that her back pain becomes so intense. She stated understanding and that she will call in for a refill several days ahead.
[2019-01-19 11:56] VITALS: BP 105/62; PULSE 66; RESP 22; TEMP 36.4; O2SAT 93
--- NOTE | 2019-01-19 12:37 | P.PNONC_ITS ---
PN -Subjective Interval history: Diagnosis: Squamous cell lung cancer, likely T2 N0 History of present illness: Patient is a 73-year-old woman who returns today for follow-up. She is found to have a central left-sided squamous cell lung cancer. She also has nodule at the right base of the lung with the low level of SUV uptake. That lesion has not been biopsied. She has just started on radiation therapy yesterday. She is scheduled for a total of 30 treatments. She tolerated the 1st 1 reasonably well. She has had some pain in the back and shoulders sometimes radiating around to the abdomen. She has been using some hydrocodone to try and help her lay on the table but only find that marginally effective. She has similar pain if she is sitting in a hunched position but otherwise feels reasonably well. She does have some ongoing shortness of breath and dyspnea on exertion. She also has cough that is productive of a thick sputum. There has been no hemoptysis. Her appetite has been poor. She has been losing weight. She notes that food really does not taste very good. She has occasional nausea. Bowels have been moving normally. She has not noted any adenopathy. No fevers chills or sweats. She did see a forest fire prevention specialist who recommended that she start warfarin for atrial fibrillation. She does not have insurance coverage for 1 of the newer oral anticoagulants. She denies any other changes in her health. Her past medical history is notable for COPD. She has a history of atrial fibrillation. Hypercholesterolemia. She has had 2 previous episodes of anaphylaxis without obvious trigger. She takes Pepcid and Benadryl to prevent that. She has had some neuropathy in her feet for several years. She does have a history of exposure to TB from her father. She tells me that she has had prior lung nodules. - Patient Self-Reported Symptoms SR Constitution: Fatigue/Malaise SR respiratory issues: Cough, Coughing blood SR Cardiovascular issues: Shortness of breath with activity or lying flat SR Musculoskeletal issues: Muscle weakness, Difficulty walking Home Medications and Allergies Home Medications Medication Instructions Recorded Confirmed Type aspirin 325 mg PO QDAY #0 07/16/16 01/13/19 History cholecalciferol (vitamin D3) 1 tab PO QDAY #0 11/04/16 01/13/19 History [Vitamin D3] diphenhydramine HCl [Benadryl 25 mg PO HS #0 11/04/16 01/13/19 History Allergy] famotidine [Pepcid AC] 20 mg PO HS #0 11/04/16 01/13/19 History vitamin B complex [B 1 tab PO QDAY #0 11/04/16 01/13/19 History Complex-Vitamin B12] magnesium 250 mg PO 11/25/17 01/13/19 History bupropion HCl SR 150 mg tablet,12 150 mg PO BID #60 each 11/02/18 01/13/19 Rx hr sustained-release lovastatin 20 mg tablet 20 mg PO BID #180 tab 12/08/18 01/13/19 Rx metoprolol tartrate 25 mg tablet 25 mg PO BID #180 tab 12/08/18 01/13/19 Rx Disabled parking permit #1 ea 12/14/18 01/13/19 Rx fluticasone furoate 200 1 inhalation INHALATION DAILY 12/14/18 01/13/19 History mcg-vilanterol 25 mcg/dose inhalation powder hydrocodone-acetaminophen 1 tab PO Q6H PRN 30 Days #30 tab 01/05/19 01/13/19 Rx cyclobenzaprine 10 mg tablet 10 mg PO Q12H #60 tab 01/13/19 Rx ibuprofen 800 mg tablet 800 mg PO Q6H PRN 01/13/19 01/13/19 History Allergies Allergy/AdvReac Type Severity Reaction Status Date / Time codeine [CODEINE] Allergy Unknown Verified 01/13/19 11:43 Exam Vital signs: Vital Signs Temp Pulse Resp BP Pulse Ox 01/19/19 11:56 97.6 F 66 22 105/62 93 Intake and Output 01/18/19 01/19/19 01/19/19 23:59 07:59 15:59 Other: Weight 66.6 kg Patient Weight 01/19/19 23:59 Weight 66.6 kg - Constitutional positive no acute distress, positive average body habitus - Routine HEENT Exam Head: Present: normocephalic, atraumatic Eye: Present: EOMI, PERRL. Absent: conjunctival icterus, scleral injection ENT: Present: mucous membranes moist, oropharynx clear - Routine Neck Exam Present: supple. Absent: lymphadenopathy, thyromegaly - Routine Respiratory Exam Present: decreased breath sounds, prolonged expiratory phase. Absent: rales, wheezes - Routine Cardiovascular Exam Present: RRR, S1, S2. Absent: murmur - Routine Abdominal Exam Present: soft, normoactive bowel sounds. Absent: tenderness, organomegaly, mass - Routine Extremities Exam Absent: cyanosis, clubbing, edema - Routine Back/Spine Exam Back/Spine: Absent: vertebral tenderness - Routine Skin Exam Present: intact. Absent: petechiae, rash - Routine Neurological Exam Present: alert, oriented X3 - Routine Psychiatric Exam Present: normal affect, normal thought process Results - Imaging Additional studies: Procedures Injection of steroid (02/20/13) Injection or infusion of other therapeutic or prophylactic substance (02/20/13) Assessment and Plan (1) Lung cancer Current visit: Yes Status: Acute 73-year-old woman with a new diagnosis of squamous cell carcinoma. This appears to be T2 N0. Her PET scan does demonstrate low degree of uptake and contralateral right basilar nodule. It is possible this may represent a 2nd cancer such as in situ carcinoma or perhaps an inflammatory lesion related to her prior TB exposure. Given its location, I think it would be difficult to biopsy. Will plan on following this lesion on subsequent CTs. If she does have evidence of growth or, then a biopsy would be indicated. She has just started on radiation therapy for her central squamous cell carcinoma. Today, we discussed the possibility of combining with weekly chemotherapy. I pointed out that this does increase the effectiveness of r adiation by approximately 10%. However it also increases the toxicity. Additional side effects would include alopecia, nausea and vomiting, cytopenias and risk for infection, allergic reaction and neuropathy, changes in taste and appetite. There would also be an increased risk for esophagitis. Her performance status at this point is marginal and she is losing weight. I think she would be better served by considering a sequential approach, considering chemotherapy after the completion of her radiation in an adjuvant type setting. She will return to clinic in about 6 weeks for follow-up but sooner should the need arise.
--- NOTE | 2019-01-26 09:44 | PC.NURSE ---
Ivonne Robb from [place] reported to us a call she received from [facility] radiation about Radah. They are observing patient to be very anxious about the whole cancer situation and reporting distress level of 7/10. They report she has lost 12 [address] Rosen whether she can receive some change or addition in her medications to help her daily with this? It was noted that she is already taking Buproprion.
--- NOTE | 2019-01-26 13:06 | ONC.MSW ---
Description: T/C re: anxiety reported by [facility] Activity: STRE[employer] HELPER called pt after pt was reported to be having high anxiety during her radiation treatments. Patient states that she doesn't feel that she is having more anxiety, however does feel that she's struggling with pain and holding still on the radiation table. She had tried taking 1-hydrocodone with no benefit or relief from the pain, so took 2 the next time, only to become uncomfortably nauseous. STRE[employer] SERV[employer] HELPER offered to meet with her to provide support and assistance, however at this time she just wants better pain control. STREET [employer] SERVIC[employer] HELPER notified Dr. Rosen of her concerns. He will consider other options, and between he and his triage nurse will get back to pt with some suggestions. Plan: No further needs indicated at this time.
--- NOTE | 2019-02-11 15:24 | ONC.MSW ---
Description: T/C re: Feeling and Looking Your Best class Activity: Left message that we will be having this class next Friday, 02/15 from 1-2:30, encouraged her to attend.
[2019-03-05 12:14] LABS: Add Manual Diff / Slide Review NO; Basophils Absolute Auto 0 /uL (0-100); Basophils Percent Auto 0.6 % (0-2); Eosinophils Absolute Auto 100 /uL (0-450); Eosinophils Percent Auto 1.5 % (2-4); Hematocrit 42.1 % (36-46); Hemoglobin 14.3 g/dL (12.0-16.0); Lymphocytes Absolute Auto 300 /uL (1100-4500); Lymphocytes Percent Auto 6.6 % (25-40); Mean Corpuscular HGB Conc 33.9 % (30-36); Mean Corpuscular Volume 97.5 fL (80-100); Monocytes Absolute Auto 500 /uL (0-900); Monocytes Percent Auto 9.7 % (3-14); Neutrophils Absolute Auto 4000 /uL (1500-7000); Neutrophils Percent Auto 81.6 % (50-75); Platelet Count 240 X10^3/uL (150-400); Red Blood Cell Count 4.32 X10^6/uL (4.0-5.2); White Blood Cell Count 4.9 X10^3/uL (4.5-11.0)
[2019-03-05 12:32] LABS: Alanine Aminotransferase 7 IU/L (9-52); Albumin 4.2 g/dL (3.5-5.0); Albumin Globulin Ratio 1.4 (1.0-2.8); Alkaline Phosphatase 77 U/L (38-126); Aspartate Aminotransferase 21 IU/L (14-36); Bilirubin Total 0.5 mg/dL (0.2-1.3); Blood Urea Nitrogen 20 mg/dL (7-17); Calcium 9.6 mg/dL (8.4-10.2); Carbon Dioxide 26 mmol/L (22-32); Chloride 104 mmol/L (98-107); Estimated Glomerular Filt Rate 54.5 mL/min (>60); Glucose 109 mg/dL (80-110); HEMOLYSIS < 15 (0-50); Potassium 4.3 mmol/L (3.4-5.1); Sodium 138 mmol/L (137-145); Total Protein 7.2 g/dL (6.3-8.2)
[2019-03-09 13:49] VITALS: BP 114/77; PULSE 78; RESP 18; TEMP 36.3; O2SAT 92
--- NOTE | 2019-03-09 14:26 | P.PNONC_ITS ---
PN -Subjective Interval history: Diagnosis: Squamous cell lung cancer, likely T2 N0 Previous treatment: 1. Radiation therapy finishing February 2019 History of present illness: Patient is a 73-year-old woman who returns today for follow-up. She is found to have a central left-sided squamous cell lung cancer. She also has nodule at the right base of the lung with the low level of SUV uptake. That lesion has not been biopsied. She has been treated with radiation therapy. She completed 30 treatments about a week ago. She tolerated therapy fairly well. She did have some pain in her back from laying on the table. She also had some nausea. She took some Zofran which helped but cause some constipation. She has not noticed any increased shortness of breath cough for chest pain. Her appetite has been low and she has continued to lose a few more lb. Strength and energy level have been low but stable. She is able to walk around her house and do some cooking and cleaning but is not getting out of the house regularly. She has not noticed any adenopathy. No fevers chills or sweats. She has not had any neuropathy. She was found to have another episode of atrial fibrillation. Her past medical history is notable for COPD. She has a history of atrial fibrillation. Hypercholesterolemia. She has had 2 previous episodes of anaphylaxis without obvious trigger. She takes Pepcid and Benadryl to prevent that. She has had some neuropathy in her feet for several years. She does have a history of exposure to TB from her father. She tells me that she has had prior lung nodules. - Patient Self-Reported Symptoms SR Constitution: Fatigue/Malaise SR respiratory issues: Cough, Coughing blood SR Cardiovascular issues: Shortness of breath with activity or lying flat SR Musculoskeletal issues: Muscle weakness, Difficulty walking Home Medications and Allergies Home Medications Medication Instructions Recorded Confirmed Type aspirin 325 mg PO QDAY #0 07/16/16 03/09/19 History cholecalciferol (vitamin D3) 1 tab PO QDAY #0 11/04/16 03/09/19 History [Vitamin D3] diphenhydramine HCl [Benadryl 25 mg PO HS #0 11/04/16 03/09/19 History Allergy] famotidine [Pepcid AC] 20 mg PO HS #0 11/04/16 03/09/19 History vitamin B complex [B 1 tab PO QDAY #0 11/04/16 03/09/19 History Complex-Vitamin B12] magnesium 250 mg PO 11/25/17 03/09/19 History bupropion HCl 150 mg tablet,12 hr 150 mg PO BID #60 each 11/02/18 03/09/19 Rx sustained-release metoprolol tartrate 25 mg tablet 25 mg PO BID #180 tab 12/08/18 03/09/[address] permit #1 ea 12/14/18 03/09/19 Rx fluticasone furoate 200 1 inhalation INHALATION DAILY 12/14/18 03/09/19 History mcg-vilanterol 25 mcg/dose inhalation powder ibuprofen 800 mg tablet 800 mg PO Q6H PRN 01/13/19 03/09/19 History ondansetron 4 mg PO Q6H PRN #60 tab 02/04/19 03/09/19 Rx lovastatin 20 mg tablet 20 mg PO BID #180 tab 03/05/19 03/09/19 Rx warfarin 4 mg PO DAILY #60 tab 03/09/19 Rx Allergies Allergy/AdvReac Type Severity Reaction Status Date / Time codeine [CODEINE] Allergy Unknown Verified 03/09/19 11:47 Exam Vital signs: Vital Signs Temp Pulse Resp BP Pulse Ox 03/09/19 13:49 97.3 F L 78 18 114/77 92 Intake and Output 03/08/19 03/09/19 03/09/19 23:59 07:59 15:59 Other: Weight 63.3 kg Patient Weight 03/09/19 23:59 Weight 63.3 kg - Constitutional positive no acute distress, positive average body habitus - Routine HEENT Exam Head: Present: normocephalic, atraumatic Eye: Present: EOMI, PERRL. Absent: conjunctival icterus, scleral injection ENT: Present: mucous membranes moist, oropharynx clear - Routine Neck Exam Present: supple. Absent: lymphadenopathy, thyromegaly - Routine Respiratory Exam Present: Clear to auscultation bilaterally. Absent: rales, wheezes - Routine Cardiovascular Exam Present: RRR, S1, S2. Absent: murmur - Routine Abdominal Exam Present: soft, normoactive bowel sounds. Absent: tenderness, organomegaly - Routine Extremities Exam Absent: cyanosis, clubbing, edema - Routine Back/Spine Exam Back/Spine: Absent: vertebral tenderness - Routine Skin Exam Present: intact. Absent: petechiae, rash - Routine Neurological Exam Present: alert, oriented X3 - Routine Psychiatric Exam Present: normal affect, normal thought process Results - Labs Laboratory Last Values WBC 4.9 X10^3/uL (4.5-11.0) 03/05/19 11:52 RBC 4.32 X10^6/uL (4.0-5.2) 03/05/19 11:52 Hgb 14.3 g/dL (12.0-16.0) 03/05/19 11:52 Hct 42.1 % (36-46) 03/05/19 11:52 MCV 97.5 fL (80-100) 03/05/19 11:52 MCH 33.0 PG (26-34) 03/05/19 11:52 MCHC 33.9 % (30-36) 03/05/19 11:52 RDW 16.0 % (11.6-14.8) H 03/05/19 11:52 Plt Count 240 X10^3/uL (150-400) 03/05/19 11:52 Neut % (Auto) 81.6 % (50-75) H 03/05/19 11:52 Lymph % (Auto) 6.6 % (25-40) L 03/05/19 11:52 [place] % (Auto) 9.7 % (3-14) 03/05/19 11:52 Eos % (Auto) 1.5 % (2-4) L 03/05/19 11:52 Baso % (Auto) 0.6 % (0-2) 03/05/19 11:52 Neut # (Auto) 4000 /uL (5643-0689) 03/05/19 11:52 Lymph # (Auto) 300 /uL (9053-6617) L 03/05/19 11:52 [place] # (Auto) 500 /uL (0-900) 03/05/19 11:52 Eos # (Auto) 100 /uL (0-450) 03/05/19 11:52 Baso # (Auto) 0 /uL (0-100) 03/05/19 11:52 Sodium 138 mmol/L (137-145) 03/05/19 11:52 Potassium 4.3 mmol/L (3.4-5.1) 03/05/19 11:52 Chloride 104 mmol/L (98-107) 03/05/19 11:52 Carbon Dioxide 26 mmol/L (22-32) 03/05/19 11:52 BUN 20 mg/dL (7-17) H 03/05/19 11:52 Creatinine 1.00 mg/dL (0.52-1.04) 03/05/19 11:52 Estimated GFR 54.5 mL/min (>60) L 03/05/19 11:52 BUN/Creatinine Ratio 20.0 (6-22) 03/05/19 11:52 Glucose 109 mg/dL (80-110) 03/05/19 11:52 Calcium 9.6 mg/dL (8.4-10.2) 03/05/19 11:52 Total Bilirubin 0.5 mg/dL (0.2-1.3) 03/05/19 11:52 AST 21 IU/L (14-36) 03/05/19 11:52 ALT 7 IU/L (9-52) L 03/05/19 11:52 Alkaline Phosphatase 77 U/L (38-126) 03/05/19 11:52 Total Protein 7.2 g/dL (6.3-8.2) 03/05/19 11:52 Albumin 4.2 g/dL (3.5-5.0) 03/05/19 11:52 Globulin 3.0 g/dL (1.7-4.1) 03/05/19 11:52 Albumin/Globulin Ratio 1.4 (1.0-2.8) 03/05/19 11:52 - Imaging Additional studies: Procedures Injection of steroid (02/20/13) Injection or infusion of other therapeutic or prophylactic substance (02/20/13) Assessment and Plan (1) Lung cancer Current visit: Yes Status: Acute 73-year-old woman with squamous cell carcinoma. This appears to be T2 N0. Her PET scan does demonstrate low degree of uptake and contralateral right basilar nodule. It is possible this may represent a 2nd cancer such as in situ carcinoma or perhaps an inflammatory lesion related to her prior TB exposure. Given its location, I think it would be difficult to biopsy. Will plan on following this lesion on subsequent CTs. She has completed her radiation therapy. She tolerated it reasonably well. Today, we discussed the rationale for adjuvant chemotherapy. I described the regimen of carboplatin and Taxol given intravenously every 3 weeks for 4 cycles. Side effects including alopecia, nausea and vomiting, myelosuppression and risk for infection reviewed. We also talked about risk for allergic reaction and neuropathy. She is willing to proceed. I think would be prudent to give her a few more weeks to recover from her radiation. We will plan on getting a new baseline CT in about 3-4 weeks and have return to clinic at that time. Will get a PICC line placed and hopefully be able to begin therapy then. She has had an episode of atrial fibrillation. Given her current cancer situation, I think she is at fairly high risk for thromboembolism and stroke. I think would be quite reasonable to start her on anticoagulation. I did give her prescription for warfarin. She will follow up with her primary physician for protime monitoring.
[2019-04-06 09:12] VITALS: BP 112/67; PULSE 63; RESP 18; TEMP 36.6; O2SAT 97
[2019-04-06 09:14] LABS: Add Manual Diff / Slide Review NO; Basophils Absolute Auto 100 /uL (0-100); Eosinophils Absolute Auto 100 /uL (0-450); Eosinophils Percent Auto 1.7 % (2-4); Hematocrit 41.3 % (36-46); Hemoglobin 13.7 g/dL (12.0-16.0); Lymphocytes Absolute Auto 400 /uL (1100-4500); Lymphocytes Percent Auto 7.3 % (25-40); Mean Corpuscular HGB Conc 33.1 % (30-36); Mean Corpuscular Hemoglobin 32.6 PG (26-34); Mean Corpuscular Volume 98.3 fL (80-100); Monocytes Absolute Auto 400 /uL (0-900); Monocytes Percent Auto 8.2 % (3-14); Neutrophils Absolute Auto 4400 /uL (1500-7000); Neutrophils Percent Auto 81.8 % (50-75); Platelet Count 203 X10^3/uL (150-400); Red Cell Distribution Width 15.7 % (11.6-14.8); White Blood Cell Count 5.3 X10^3/uL (4.5-11.0)
[2019-04-06 09:27] LABS: Alanine Aminotransferase 14 IU/L (9-52); Albumin 3.9 g/dL (3.5-5.0); Albumin Globulin Ratio 1.4 (1.0-2.8); Alkaline Phosphatase 60 U/L (38-126); Aspartate Aminotransferase 21 IU/L (14-36); Bilirubin Total 0.3 mg/dL (0.2-1.3); Blood Urea Nitrogen 15 mg/dL (7-17); Calcium 9.5 mg/dL (8.4-10.2); Carbon Dioxide 24 mmol/L (22-32); Chloride 107 mmol/L (98-107); Estimated Glomerular Filt Rate 54.5 mL/min (>60); Globulin 2.8 g/dL (1.7-4.1); Glucose 79 mg/dL (80-110); HEMOLYSIS < 15 (0-50); Potassium 4.1 mmol/L (3.4-5.1); Sodium 138 mmol/L (137-145); Total Protein 6.7 g/dL (6.3-8.2)
--- NOTE | 2019-04-06 09:44 | P.PNONC_ITS ---
PN -Subjective Interval history: Diagnosis: Squamous cell lung cancer, likely T2 N0 Previous treatment: 1. Radiation therapy finishing February 2019 History of present illness: Patient is a 73-year-old woman who returns today for follow-up. She is found to have a central left-sided squamous cell lung cancer. She also has nodule at the right base of the lung with the low level of SUV uptake. That lesion has not been biopsied. She has been treated with radiation therapy finishing about a month ago. Since her last visit here, she has been feeling generally fairly well. She notes that she has had some improvement in her breathing. She has occasional cough but it has not been severe. She has noted some occasional s harp pain in her back and left shoulder area. She takes some ibuprofen every few days which seems to help. She has not noticed any adenopathy. Her appetite has been good. No nausea or vomiting. She did have some constipation related to Zofran during the radiation. She has been using a liquid laxative which has been helping. She denies any other changes in her health. She did have a PICC line placed and is ready to begin chemotherapy today. Her past medical history is notable for COPD. She has a history of atrial fibrillation. Hypercholesterolemia. She has had 2 previous episodes of anaphylaxis without obvious trigger. She takes Pepcid and Benadryl to prevent that. She has had some neuropathy in her feet for several years. She does have a history of exposure to TB from her father. She tells me that she has had prior lung nodules. - Patient Self-Reported Symptoms SR Constitution: Fatigue/Malaise SR respiratory issues: Cough, Coughing blood SR Cardiovascular issues: Shortness of breath with activity or lying flat SR Musculoskeletal issues: Back or neck pain Home Medications and Allergies Home Medications Medication Instructions Recorded Confirmed Type cholecalciferol (vitamin D3) 1 tab PO QDAY #0 11/04/16 04/06/19 History [Vitamin D3] diphenhydramine HCl [Benadryl 25 mg PO HS #0 11/04/16 04/06/19 History Allergy] famotidine [Pepcid AC] 20 mg PO HS #0 11/04/16 04/06/19 History vitamin B complex [B 1 tab PO QDAY #0 11/04/16 04/06/19 History Complex-Vitamin B12] magnesium 250 mg PO DAILY 11/25/17 04/06/19 History bupropion HCl 150 mg tablet,12 hr 150 mg PO BID #60 each 11/02/18 04/06/19 Rx sustained-release metoprolol tartrate 25 mg tablet 25 mg PO BID #180 tab 12/08/18 04/06/[address] permit #1 ea 12/14/18 03/09/19 Rx fluticasone furoate 200 1 inhalation INHALATION DAILY 12/14/18 04/06/19 History mcg-vilanterol 25 mcg/dose inhalation powder ibuprofen 800 mg tablet 800 mg PO Q6H PRN 01/13/19 04/06/19 History lovastatin 20 mg tablet 20 mg PO BID #180 tab 03/05/19 04/06/19 Rx warfarin 4 mg PO DAILY #60 tab 03/09/19 04/06/19 Rx Allergies Allergy/AdvReac Type Severity Reaction Status Date / Time codeine [CODEINE] Allergy Unknown Verified 03/09/19 11:47 Exam Vital signs: Vital Signs Temp Pulse Resp BP Pulse Ox 04/06/19 09:12 98 F 63 18 112/67 97 Intake and Output 04/05/19 04/06/19 04/06/19 23:59 07:59 15:59 Other: Weight 62.3 kg Patient Weight 04/06/19 23:59 Weight 62.3 kg - Constitutional positive no acute distress, positive average body habitus - Routine HEENT Exam Head: Present: normocephalic, atraumatic Eye: Present: EOMI, PERRL. Absent: conjunctival icterus, scleral injection ENT: Present: mucous membranes moist, oropharynx clear - Routine Neck Exam Present: supple. Absent: lymphadenopathy - Routine Respiratory Exam Present: Clear to auscultation bilaterally. Absent: rales, wheezes - Routine Cardiovascular Exam Present: RRR, S1, S2. Absent: murmur - Routine Abdominal Exam Present: soft, normoactive bowel sounds. Absent: tenderness, organomegaly, mass - Routine Extremities Exam Absent: cyanosis, clubbing, edema Comments: She has a PICC line in the right upper arm. - Routine Back/Spine Exam Back/Spine: Absent: paraspinal tenderness, vertebral tenderness Comments: There is no tenderness to palpation over the spine ribs or scapula. - Routine Skin Exam Present: intact. Absent: petechiae, rash - Routine Neurological Exam Present: alert, oriented X3 - Routine Psychiatric Exam Present: normal affect, normal thought process Results - Labs Laboratory Last Values WBC 5.3 X10^3/uL (4.5-11.0) 04/06/19 08:52 RBC 4.20 X10^6/uL (4.0-5.2) 04/06/19 08:52 Hgb 13.7 g/dL (12.0-16.0) 04/06/19 08:52 Hct 41.3 % (36-46) 04/06/19 08:52 MCV 98.3 fL (80-100) 04/06/19 08:52 MCH 32.6 PG (26-34) 04/06/19 08:52 MCHC 33.1 % (30-36) 04/06/19 08:52 RDW 15.7 % (11.6-14.8) H 04/06/19 08:52 Plt Count 203 X10^3/uL (150-400) 04/06/19 08:52 Neut % (Auto) 81.8 % (50-75) H 04/06/19 08:52 Lymph % (Auto) 7.3 % (25-40) L 04/06/19 08:52 [place] % (Auto) 8.2 % (3-14) 04/06/19 08:52 Eos % (Auto) 1.7 % (2-4) L 04/06/19 08:52 Baso % (Auto) 1.0 % (0-2) 04/06/19 08:52 Neut # (Auto) 4400 /uL (8821-7912) 04/06/19 08:52 Lymph # (Auto) 400 /uL (5773-5996) L 04/06/19 08:52 [place] # (Auto) 400 /uL (0-900) 04/06/19 08:52 Eos # (Auto) 100 /uL (0-450) 04/06/19 08:52 Baso # (Auto) 100 /uL (0-100) 04/06/19 08:52 Sodium 138 mmol/L (137-145) 04/06/19 08:52 Potassium 4.1 mmol/L (3.4-5.1) 04/06/19 08:52 Chloride 107 mmol/L (98-107) 04/06/19 08:52 Carbon Dioxide 24 mmol/L (22-32) 04/06/19 08:52 BUN 15 mg/dL (7-17) 04/06/19 08:52 Creatinine 1.00 mg/dL (0.52-1.04) 04/06/19 08:52 Estimated GFR 54.5 mL/min (>60) L 04/06/19 08:52 BUN/Creatinine Ratio 15.0 (6-22) 04/06/19 08:52 Glucose 79 mg/dL (80-110) L 04/06/19 08:52 Calcium 9.5 mg/dL (8.4-10.2) 04/06/19 08:52 Total Bilirubin 0.3 mg/dL (0.2-1.3) 04/06/19 08:52 AST 21 IU/L (14-36) 04/06/19 08:52 ALT 14 IU/L (9-52) 04/06/19 08:52 Alkaline Phosphatase 60 U/L (38-126) 04/06/19 08:52 Total Protein 6.7 g/dL (6.3-8.2) 04/06/19 08:52 Albumin 3.9 g/dL (3.5-5.0) 04/06/19 08:52 Globulin 2.8 g/dL (1.7-4.1) 04/06/19 08:52 Albumin/Globulin Ratio 1.4 (1.0-2.8) 04/06/19 08:52 - Imaging CT scan - chest: image reviewed (She had a slight decrease in the size of her left-sided central mass in the area of radiation. However, her indeterminate right lower lobe lesion had increased in size. There are no new lesions seen.) Additional studies: Procedures Injection of steroid (02/20/13) Injection or infusion of other therapeutic or prophylactic substance (02/20/13) Assessment and Plan (1) Lung cancer Current visit: Yes Status: Acute 73-year-old woman with squamous cell carcinoma T2 N0 of the left lung. She appears to have had a minor response to radiation and is due to start adjuvant chemotherapy with carboplatin and Taxol. She will have 4 cycles of treatment. Side effects were reviewed. Alopecia, nausea and vomiting, myelosuppression or common. There is a risk for worsening neuropathy. She is ready to begin. Her right-sided lung lesion has increased in size. For review with Radiology to see if a percutaneous biopsy would be feasible or safe. If it is, we will get a biopsy scheduled. If a biopsy is not felt to be feasible or safe, we will follow it is response to chemotherapy. If it does shrink, I would consider radiation later. She has had an episode of atrial fibrillation and started warfarin. Will plan on checking an INR today.
[2019-04-06] MEDS: SODIUM CHLORIDE 0.9% 100 ML 21 ML IV (10:45)
[2019-04-06] MEDS: dexAMETHasone 20 MG in SODIUM CHLORIDE 0.9% 50 ML 220 ML IV (10:45)
[2019-04-06] MEDS: ACETAMINOPHEN 325 MG TABLET 650 MG PO (11:21)
[2019-04-06] MEDS: FAMOTIDINE 20 MG/50 ML PIGGYBACK 200 MG IV (11:21)
[2019-04-06] MEDS: diphenhydrAMINE 25 MG TABLET PO (11:21)
[2019-04-06] MEDS: ONDANSETRON 16 MG in SODIUM CHLORIDE 0.9% 50 ML 232 ML IV (11:43)
[2019-04-06] MEDS: FOSAPREPITANT 150 MG in SODIUM CHLORIDE 0.9% 150 ML 300 ML IV (12:11)
--- NOTE | 2019-04-06 14:17 | ONC.SCHED ---
Spoke with Beatriz in radiology and she will take the Lung Biopsy order and give to the radiologist to see if it's a go and then call the patient to schedule. Radiology will contact us if there is a problem with doing the biopsy.
--- NOTE | 2019-04-06 14:50 | PC.NURSE ---
Pt reported feeling dizzy when she stood up to go to the bathroom. Pt reported having blurry vision as well. VS were 98.1, 124/74, 73 pulse, 92 O2, and 20 respirations. Doc notified of pt symptoms and ordered that treatment be resumed if symptoms resolved and VS remained stable. VSS, Taxol restarted per doc orders. Pt no longer experiencing dizziness or blurry vision. Pt verbalized that if symptoms were to return she would let an RN know immediately.
[2019-04-06] MEDS: CARBOPLATIN IV (17:03)
[2019-04-06] MEDS: SODIUM CHLORIDE 0.9% IV (17:03)
--- NOTE | 2019-04-08 15:34 | ONC.SCHED ---
left a voice mail for Dr Rosen at [facility] (triage nurse) regarding a message from Dr Rodríguez in our radiology department, Dr Rodríguez wanted to talk to Dr Rosen about the biopsy. . . Dr Rodríguez didn't think the biopsy would be safe but had other suggestions to talk about
--- NOTE | 2019-04-08 16:45 | PC.NURSE ---
FIRST CHEMO CHECKUP CALL: This nurse called patient. She stated doing well, no nauseu or vomiting, drinking plenty of fluids. She was instructed to continue to drink well and eat frequently smaller amounts and to call oncologist structural ironworker if problems on weekend.
--- NOTE | 2019-04-19 09:53 | ONC.SCHED ---
Per Martha Shin in scheduling di. The radiologist has denied her lung biopsy. I will give Dr. Rosen the message as he needs to contact the radiologist.
--- NOTE | 2019-04-19 16:35 | PC.NURSE ---
CRITICAL VALUE WBC: was reported by Dr. Galan for Dr. Rosen. Dr. Rosen informed per telephone by this nurse who stated wait and watch. This nurse called patient to reemphasize infection precautions of washing hands, avoiding contact with people with URI and avoiding crowds, as well to measure temp daily and to go to ER for temp over 100.4. Patient reported being seen in ER a couple days ago for colitis and is on a couple antibiotics.
[2019-04-27 09:14] LABS: Add Manual Diff / Slide Review NO; Basophils Absolute Auto 0 /uL (0-100); Basophils Percent Auto 0.8 % (0-2); Eosinophils Absolute Auto 0 /uL (0-450); Eosinophils Percent Auto 0.9 % (2-4); Hematocrit 33.6 % (36-46); Hemoglobin 11.9 g/dL (12.0-16.0); Lymphocytes Absolute Auto 500 /uL (1100-4500); Lymphocytes Percent Auto 11.3 % (25-40); Mean Corpuscular HGB Conc 35.5 % (30-36); Mean Corpuscular Hemoglobin 34.6 PG (26-34); Mean Corpuscular Volume 97.5 fL (80-100); Monocytes Absolute Auto 400 /uL (0-900); Monocytes Percent Auto 9.3 % (3-14); Neutrophils Absolute Auto 3400 /uL (1500-7000); Neutrophils Percent Auto 77.7 % (50-75); Platelet Count 166 X10^3/uL (150-400); Red Blood Cell Count 3.45 X10^6/uL (4.0-5.2); Red Cell Distribution Width 16.4 % (11.6-14.8); White Blood Cell Count 4.4 X10^3/uL (4.5-11.0)
[2019-04-27 09:17] VITALS: BP 118/76; PULSE 65; RESP 16; TEMP 36.4; O2SAT 95
[2019-04-27 09:19] LABS: Prothrombin Time 11.1 SECONDS (10.1-12.7)
[2019-04-27 09:26] LABS: Alanine Aminotransferase 15 IU/L (9-52); Albumin 3.6 g/dL (3.5-5.0); Albumin Globulin Ratio 1.3 (1.0-2.8); Alkaline Phosphatase 70 U/L (38-126); Aspartate Aminotransferase 19 IU/L (14-36); BUN Creatinine Ratio 21.4 (6-22); Bilirubin Total 0.5 mg/dL (0.2-1.3); Blood Urea Nitrogen 15 mg/dL (7-17); Calcium 9.1 mg/dL (8.4-10.2); Carbon Dioxide 26 mmol/L (22-32); Chloride 107 mmol/L (98-107); Estimated Glomerular Filt Rate > 60.0 mL/min (>60); Globulin 2.7 g/dL (1.7-4.1); Glucose 90 mg/dL (80-110); HEMOLYSIS < 15 (0-50); Potassium 3.9 mmol/L (3.4-5.1); Sodium 139 mmol/L (137-145); Total Protein 6.3 g/dL (6.3-8.2)
[2019-04-27] MEDS: dexAMETHasone 20 MG in SODIUM CHLORIDE 0.9% 50 ML 220 ML IV (10:19)
[2019-04-27] MEDS: diphenhydrAMINE 25 MG TABLET PO (10:22)
[2019-04-27] MEDS: ACETAMINOPHEN 325 MG TABLET 650 MG PO (10:22)
[2019-04-27] MEDS: ONDANSETRON 16 MG in SODIUM CHLORIDE 0.9% 50 ML 232 ML IV (10:38)
[2019-04-27] MEDS: FAMOTIDINE 20 MG/50 ML PIGGYBACK 200 MG IV (11:07)
[2019-04-27] MEDS: FOSAPREPITANT 150 MG in SODIUM CHLORIDE 0.9% 150 ML 300 ML IV (11:34)
[2019-04-27] MEDS: SODIUM CHLORIDE 0.9% 100 ML 21 ML IV (12:31)
[2019-04-27 14:18] VITALS: BP 124/79; PULSE 81; RESP 18; TEMP 36.8; O2SAT 93
--- NOTE | 2019-04-27 14:53 | ONC.PN ---
PN -Subjective Interval history: Diagnosis: Squamous cell lung cancer, likely T2 N0 Previous treatment: 1. Radiation therapy finishing February 2019 2. One cycle of adjuvant carboplatin and Taxol History of present illness: Patient is a 73-year-old woman who returns today for follow-up. She is found to have a central left-sided squamous cell lung cancer that was treated with radiation. She also has nodule at the right base of the lung with the low level of SUV uptake. That lesion has not been biopsied. Since her last visit here, she has been feeling generally fairly well. She has completed her 1st cycle of chemotherapy. She notes that she had some fatigue and decreased appetite. She had some nausea for about 2 days after her infusion but no vomiting. She has had some dizziness. She denies any worsening shortness of breath. Her cough is been stable. No pain in the chest. Bowels have been moving normally. No fevers chills or sweats. She has not noticed any neuropathy. She denies any other changes in her health. She had been scheduled for a biopsy of her right-sided lung lesion but it was canceled. The radiologist did not feel they could reach the lesions safely. Her past medical history is notable for COPD. She has a history of atrial fibrillation. Hypercholesterolemia. She has had 2 previous episodes of anaphylaxis without obvious trigger. She takes Pepcid and Benadryl to prevent that. She has had some neuropathy in her feet for several years. She does have a history of exposure to TB from her father. She tells me that she has had prior lung nodules. - Patient Self-Reported Symptoms SR Constitution: Fatigue/Malaise SR respiratory issues: Cough, Coughing blood SR Cardiovascular issues: Shortness of breath with activity or lying flat SR Musculoskeletal issues: Back or neck pain Home Medications and Allergies Home Medications Medication Instructions Recorded Confirmed Type cholecalciferol (vitamin D3) 1 tab PO QDAY #0 11/04/16 04/27/19 History [Vitamin D3] diphenhydramine HCl [Benadryl 25 mg PO HS #0 11/04/16 04/27/19 History Allergy] famotidine [Pepcid AC] 20 mg PO HS #0 11/04/16 04/27/19 History vitamin B complex [B 1 tab PO QDAY #0 11/04/16 04/27/19 History Complex-Vitamin B12] magnesium 250 mg PO DAILY 11/25/17 04/27/19 History bupropion HCl 150 mg tablet,12 hr 150 mg PO BID #60 each 11/02/18 04/27/19 Rx sustained-release metoprolol tartrate 25 mg tablet 25 mg PO BID #180 tab 12/08/18 04/27/19 Rx [address]abled [address] permit #1 ea 12/14/18 03/09/19 Rx fluticasone furoate 200 1 inhalation INHALATION DAILY 12/14/18 04/27/19 History mcg-vilanterol 25 mcg/dose inhalation powder ibuprofen 800 mg tablet 800 mg PO Q6H PRN 01/13/19 04/27/19 History lovastatin 20 mg tablet 20 mg PO BID #180 tab 03/05/19 04/27/19 Rx warfarin 4 mg PO DAILY #60 tab 03/09/19 04/27/19 Rx B.breve-L.acid-L.rham-S.thermo 1 tab PO DAILY 04/27/19 04/27/19 History [Probiotic] Allergies Allergy/AdvReac Type Severity Reaction Status Date / Time codeine [CODEINE] Allergy Intermediate Vomiting Verified 04/12/19 19:15 morphine Allergy Intermediate Vomiting Verified 04/12/19 19:15 Exam Vital signs: Vital Signs Temp Pulse Resp BP Pulse Ox 04/27/19 14:18 98.3 F 81 18 124/79 93 04/27/19 09:17 97.5 F L 65 16 118/76 95 Intake and Output 04/26/19 04/27/19 04/27/19 23:59 07:59 15:59 Intake Total 313 / 313 Balance 313 / 313 Intake: IV 313 / 313 Famotidine 20 mg In 50 ml @ 200 50 / 50 mls/hr IV PRECHEM SANTA Rx#: [id number] Fosaprepitant 150 mg In Sodium 150 / 150 Chloride 0.9% 150 ml @ 300 mls/ hr IV PRECHEM SANTA Rx#:[id number] Ondansetron 16 mg In Sodium 58 / 58 Chloride 0.9% 50 ml @ 232 mls/ hr IV PRECHEM SANTA Rx#:[id number] dexAMETHasone 20 mg In Sodium 55 / 55 Chloride 0.9% 50 ml @ 220 mls/ hr IV PRECHEM SANTA Rx#:[id number] Other: Weight 62.9 kg Patient Weight 04/27/19 23:59 Weight 62.9 kg - Constitutional positive no acute distress, positive average body habitus - Routine HEENT Exam Head: Present: normocephalic, atraumatic Eye: Present: EOMI, PERRL. Absent: conjunctival icterus, scleral injection ENT: Present: mucous membranes moist, oropharynx clear - Routine Neck Exam Present: supple. Absent: lymphadenopathy, thyromegaly - Routine Respiratory Exam Present: Clear to auscultation bilaterally. Absent: rales, wheezes - Routine Cardiovascular Exam Present: RRR, S1, S2. Absent: murmur - Routine Abdominal Exam Present: soft, normoactive bowel sounds. Absent: tenderness, organomegaly, mass - Routine Extremities Exam Absent: cyanosis, clubbing, edema - Routine Back/Spine Exam Back/Spine: Absent: vertebral tenderness - Routine Skin Exam Present: intact. Absent: petechiae, rash - Routine Neurological Exam Present: alert, oriented X3 - Routine Psychiatric Exam Present: normal affect, normal thought process Results - Labs Laboratory Last Values WBC 4.4 X10^3/uL (4.5-11.0) L 04/27/19 09:00 RBC 3.45 X10^6/uL (4.0-5.2) L 04/27/19 09:00 Hgb 11.9 g/dL (12.0-16.0) L 04/27/19 09:00 Hct 33.6 % (36-46) L 04/27/19 09:00 MCV 97.5 fL (80-100) 04/27/19 09:00 MCH 34.6 PG (26-34) H 04/27/19 09:00 MCHC 35.5 % (30-36) 04/27/19 09:00 RDW 16.4 % (11.6-14.8) H 04/27/19 09:00 Plt Count 166 X10^3/uL (150-400) 04/27/19 09:00 Neut % (Auto) 77.7 % (50-75) H 04/27/19 09:00 Lymph % (Auto) 11.3 % (25-40) L 04/27/19 09:00 [place] % (Auto) 9.3 % (3-14) 04/27/19 09:00 Eos % (Auto) 0.9 % (2-4) L 04/27/19 09:00 Baso % (Auto) 0.8 % (0-2) 04/27/19 09:00 Neut # (Auto) 3400 /uL (8071-2935) 04/27/19 09:00 Lymph # (Auto) 500 /uL (0972-4282) L 04/27/19 09:00 [place] # (Auto) 400 /uL (0-900) 04/27/19 09:00 Eos # (Auto) 0 /uL (0-450) 04/27/19 09:00 Baso # (Auto) 0 /uL (0-100) 04/27/19 09:00 PT 11.1 SECONDS (10.1-12.7) 04/27/19 09:00 INR 1.0 (0.9-1.3) 04/27/19 09:00 Sodium 139 mmol/L (137-145) 04/27/19 09:00 Potassium 3.9 mmol/L (3.4-5.1) 04/27/19 09:00 Chloride 107 mmol/L (98-107) 04/27/19 09:00 Carbon Dioxide 26 mmol/L (22-32) 04/27/19 09:00 BUN 15 mg/dL (7-17) 04/27/19 09:00 Creatinine 0.70 mg/dL (0.52-1.04) 04/27/19 09:00 Estimated GFR > 60.0 mL/min (>60) 04/27/19 09:00 BUN/Creatinine Ratio 21.4 (6-22) 04/27/19 09:00 Glucose 90 mg/dL (80-110) 04/27/19 09:00 Calcium 9.1 mg/dL (8.4-10.2) 04/27/19 09:00 Total Bilirubin 0.5 mg/dL (0.2-1.3) 04/27/19 09:00 AST 19 IU/L (14-36) 04/27/19 09:00 ALT 15 IU/L (9-52) 04/27/19 09:00 Alkaline Phosphatase 70 U/L (38-126) 04/27/19 09:00 Total Protein 6.3 g/dL (6.3-8.2) 04/27/19 09:00 Albumin 3.6 g/dL (3.5-5.0) 04/27/19 09:00 Globulin 2.7 g/dL (1.7-4.1) 04/27/19 09:00 Albumin/Globulin Ratio 1.3 (1.0-2.8) 04/27/19 09:00 - Imaging Additional studies: Procedures Injection of steroid (02/20/13) Injection or infusion of other therapeutic or prophylactic substance (02/20/13) Assessment and Plan (1) Lung cancer Current visit: Yes Status: Acute 73-year-old woman with squamous cell carcinoma T2 N0 of the left lung. She appears to have had a minor response to radiation. She will continue with her 2nd cycle of adjuvant chemotherapy today. She will return to clinic in 3 weeks for follow-up. She will be due for CT scan following her 4th cycle. Will need to monitor the lesion on the right to determine its response to treatment. She may need additional radiation there at the end of her chemotherapy.
[2019-04-27] MEDS: CARBOPLATIN IV (15:45)
[2019-04-27] MEDS: SODIUM CHLORIDE 0.9% IV (15:45)
[2019-05-04 09:57] VITALS: BP 119/78; PULSE 97; RESP 18; TEMP 36.3; O2SAT 94
[2019-05-04 09:59] LABS: Hematocrit 36.7 % (36-46); Hemoglobin 12.3 g/dL (12.0-16.0); Mean Corpuscular HGB Conc 33.5 % (30-36); Mean Corpuscular Hemoglobin 33.2 PG (26-34); Mean Corpuscular Volume 99.2 fL (80-100); Platelet Count 113 X10^3/uL (150-400); Red Cell Distribution Width 16.1 % (11.6-14.8)
[2019-05-04 10:02] LABS: Add Manual Diff / Slide Review YES; White Blood Cell Count 1.1 X10^3/uL (4.5-11.0)
[2019-05-04 10:10] LABS: Alanine Aminotransferase 22 IU/L (<35); Albumin 3.8 g/dL (3.5-5.0); Albumin Globulin Ratio 1.5 (1.0-2.8); Alkaline Phosphatase 77 U/L (38-126); Aspartate Aminotransferase 27 IU/L (14-36); Bilirubin Total 0.5 mg/dL (0.2-1.3); Blood Urea Nitrogen 21 mg/dL (7-17); Calcium 9.3 mg/dL (8.4-10.2); Carbon Dioxide 24 mmol/L (22-32); Chloride 104 mmol/L (98-107); Estimated Glomerular Filt Rate > 60.0 mL/min (>60); Globulin 2.6 g/dL (1.7-4.1); Glucose 94 mg/dL (80-110); HEMOLYSIS < 15 (0-50); Potassium 3.7 mmol/L (3.4-5.1); Sodium 136 mmol/L (137-145); Total Protein 6.4 g/dL (6.3-8.2)
--- NOTE | 2019-05-04 10:20 | P.PNONC_ITS ---
PN -Subjective Interval history: Diagnosis: Squamous cell lung cancer, likely T2 N0 Previous treatment: 1. Radiation therapy finishing February 2019 2. 2 cycles of adjuvant carboplatin and Taxol History of present illness: Patient is a 74-year-old woman who returns today for follow-up. She has been undergoing adjuvant chemotherapy for squamous cell lung cancer. She had her 2nd cycle last week. The evening after her treatment, she developed a rash on her arm as well as some diarrhea. It was thought that this might represent an allergic reaction and she started on prednisone 60 mg daily. She has had 4 doses thus far. Her rash has been fading or least changing somewhat in character. She has had some decrease in her diarrhea as well. She is not having any nausea or vomiting. Her appetite has been low. No fevers chills or sweats. She does feel little bit increase in fatigue. She also has had a little bit more shortness of breath than has been typical for her. She is not having any worsening numbness or tingling in the hands or feet. Her hair has been coming out. She has been bothered by some difficulty sleeping and anxiety. She denies any other changes in her health. Her past medical history is notable for COPD. She has a history of atrial fibrillation. Hypercholesterolemia. She has had 2 previous episodes of anaphylaxis without obvious trigger. She takes Pepcid and Benadryl to prevent that. She has had some neuropathy in her feet for several years. She does have a history of exposure to TB from her father. She tells me that she has had prior lung nodules. - Patient Self-Reported Symptoms SR Constitution: Fatigue/Malaise SR respiratory issues: Cough, Coughing blood SR Cardiovascular issues: Dizzy/lightheaded SR Musculoskeletal issues: Muscle weakness Home Medications and Allergies Home Medications Medication Instructions Recorded Confirmed Type cholecalciferol (vitamin D3) 1 tab PO QDAY #0 11/04/16 04/27/19 History [Vitamin D3] diphenhydramine HCl [Benadryl 25 mg PO HS #0 11/04/16 04/27/19 History Allergy] famotidine [Pepcid AC] 20 mg PO HS #0 11/04/16 04/27/19 History vitamin B complex [B 1 tab PO QDAY #0 11/04/16 04/27/19 History Complex-Vitamin B12] magnesium 250 mg PO DAILY 11/25/17 04/27/19 History bupropion HCl 150 mg tablet,12 hr 150 mg PO BID #60 each 11/02/18 04/27/19 Rx sustained-release metoprolol tartrate 25 mg tablet 25 mg PO BID #180 tab 12/08/18 04/27/[address] permit #1 ea 12/14/18 03/09/19 Rx fluticasone furoate 200 1 inhalation INHALATION DAILY 12/14/18 04/27/19 History mcg-vilanterol 25 mcg/dose inhalation powder ibuprofen 800 mg tablet 800 mg PO Q6H PRN 01/13/19 04/27/19 History lovastatin 20 mg tablet 20 mg PO BID #180 tab 03/05/19 04/27/19 Rx warfarin 4 mg PO DAILY #60 tab 03/09/19 04/27/19 Rx B.breve-L.acid-L.rham-S.thermo 1 tab PO DAILY 04/27/19 04/27/19 History [Probiotic] prednisone 60 mg PO DAILY 05/04/19 05/04/19 History trazodone 50 mg PO BEDTIME PRN 30 Days #30 05/04/19 Rx tab Allergies Allergy/AdvReac Type Severity Reaction Status Date / Time codeine [CODEINE] Allergy Intermediate Vomiting Verified 04/12/19 19:15 morphine Allergy Intermediate Vomiting Verified 04/12/19 19:15 Exam Vital signs: Vital Signs Temp Pulse Resp BP Pulse Ox 05/04/19 09:57 97.3 F L 97 H 18 119/78 94 Intake and Output 05/03/19 05/04/19 05/04/19 23:59 07:59 15:59 Other: Weight 60.5 kg Patient Weight 05/04/19 23:59 Weight 60.5 kg - Constitutional positive no acute distress, positive thin - Routine HEENT Exam Head: Present: normocephalic, atraumatic Eye: Present: EOMI, PERRL. Absent: conjunctival icterus, scleral injection ENT: Present: mucous membranes moist, oropharynx clear - Routine Neck Exam Present: supple. Absent: lymphadenopathy, thyromegaly - Routine Respiratory Exam Present: Clear to auscultation bilaterally. Absent: rales, wheezes - Routine Cardiovascular Exam Present: RRR, S1, S2. Absent: murmur - Routine Abdominal Exam Present: soft, normoactive bowel sounds. Absent: tenderness, organomegaly, mass - Routine Extremities Exam Absent: cyanosis, clubbing, edema - Routine Back/Spine Exam Back/Spine: Absent: vertebral tenderness - Routine Skin Exam Present: intact, rash. Absent: petechiae Comments: On her right forearm and on her left jj she has some small areas with some clustered punctate type lesions. There more darkly colored than petechia. - Routine Neurological Exam Present: alert, oriented X3 - Routine Psychiatric Exam Present: normal affect, normal thought process Results - Labs Laboratory Last Values WBC 1.1 X10^3/uL (4.5-11.0) L* 05/04/19 09:26 RBC 3.70 X10^6/uL (4.0-5.2) L 05/04/19 09:26 Hgb 12.3 g/dL (12.0-16.0) 05/04/19 09:26 Hct 36.7 % (36-46) 05/04/19 09:26 MCV 99.2 fL (80-100) 05/04/19 09:26 MCH 33.2 PG (26-34) 05/04/19 09:26 MCHC 33.5 % (30-36) 05/04/19 09:26 RDW 16.1 % (11.6-14.8) H 05/04/19 09:26 Plt Count 113 X10^3/uL (150-400) L 05/04/19 09:26 Neut % (Auto) Not Reportable 05/04/19 09:26 Lymph % (Auto) Not Reportable 05/04/19 09:26 [place] % (Auto) Not Reportable 05/04/19 09:26 Eos % (Auto) Not Reportable 05/04/19 09:26 Baso % (Auto) Not Reportable 05/04/19 09:26 Neut # (Auto) 3400 /uL (5507-9397) 04/27/19 09:00 Lymph # (Auto) Not Reportable 05/04/19 09:26 [place] # (Auto) Not Reportable 05/04/19 09:26 Eos # (Auto) 0 /uL (0-450) 04/27/19 09:00 Baso # (Auto) Not Reportable 05/04/19 09:26 PT 11.1 SECONDS (10.1-12.7) 04/27/19 09:00 INR 1.0 (0.9-1.3) 04/27/19 09:00 Sodium 136 mmol/L (137-145) L 05/04/19 09:26 Potassium 3.7 mmol/L (3.4-5.1) 05/04/19 09:26 Chloride 104 mmol/L (98-107) 05/04/19 09:26 Carbon Dioxide 24 mmol/L (22-32) 05/04/19 09:26 BUN 21 mg/dL (7-17) H 05/04/19 09:26 Creatinine 0.70 mg/dL (0.52-1.04) 05/04/19 09:26 Estimated GFR > 60.0 mL/min (>60) 05/04/19 09:26 BUN/Creatinine Ratio 30.0 (6-22) H 05/04/19 09:26 Glucose 94 mg/dL (80-110) 05/04/19 09:26 Calcium 9.3 mg/dL (8.4-10.2) 05/04/19 09:26 Total Bilirubin 0.5 mg/dL (0.2-1.3) 05/04/19 09:26 AST 27 IU/L (14-36) 05/04/19 09:26 ALT 22 IU/L (<35) 05/04/19 09:26 Alkaline Phosphatase 77 U/L (38-126) 05/04/19 09:26 Total Protein 6.4 g/dL (6.3-8.2) 05/04/19 09:26 Albumin 3.8 g/dL (3.5-5.0) 05/04/19 09:26 Globulin 2.6 g/dL (1.7-4.1) 05/04/19 09:26 Albumin/Globulin Ratio 1.5 (1.0-2.8) 05/04/19 09:26 - Imaging Additional studies: Procedures Injection of steroid (02/20/13) Injection or infusion of other therapeutic or prophylactic substance (02/20/13) Assessment and Plan (1) Lung cancer Current visit: Yes Status: Acute 73-year-old woman with squamous cell carcinoma T2 N0 of the left lung. She appears to have had a minor response to radiation. She has had some rash and diarrhea following her chemotherapy. This does not appear to be consistent with an allergic reaction. Will stop her prednisone. This may be contributing somewhat to her difficulty sleeping and anxiety as well. I did give her prescription for trazodone to see if that would help. She will also take some nutritional supplements. She return to clinic in about 2 weeks for follow-up.
[2019-05-04 10:35] LABS: Neutrophils Absolute Manual 550 /uL (3000-5900); Total Cells Counted 100
[2019-05-04 10:36] LABS: Rouleaux 2+
--- NOTE | 2019-05-04 13:26 | ONC.MSW ---
Description: Depression/Anxiety Activity: Met with pt after she identified high anxiety on her distress screen. She became immediately tearful, stating that she is having a very hard day, her was also tearful. She shared that she has not been sleeping well, that she has constant anxiety without relief. She feels that treatment is going well so far, however she has lost 5-lbs over the last week, and feels discouraged. [employer] PRO[employer]NAGER offered counseling for emotional/coping support, as well as encouragement for how far she has come so far. Offered to meet with her individually for counseling to discuss in more depth what is triggering her anxiety, which she was receptive to. Discussed nutritional supports available. Offered to make a referral for [facility], which she will consider. Discussed how supplementing with protein drinks such as Ensure/Enlive are helpful for cancer patients in terms of maintaining nutrition and supporting continued healing. Provided her with several samples and coupons to purchase more. Plan: Pt will contact this INTEGRATION PROJECT MANAGER within the next week if she wants to pursue counseling and/or a dietary referral.
[2019-05-11] MEDS: SODIUM CHLORIDE 0.9% 1,000 ML 1000 ML IV (13:50)
[2019-05-11 13:56] LABS: Add Manual Diff / Slide Review NO; Basophils Absolute Auto 0 /uL (0-100); Basophils Percent Auto 0.5 % (0-2); Eosinophils Absolute Auto 0 /uL (0-450); Eosinophils Percent Auto 0.8 % (2-4); Hematocrit 29.4 % (36-46); Hemoglobin 10.2 g/dL (12.0-16.0); Lymphocytes Absolute Auto 300 /uL (1100-4500); Lymphocytes Percent Auto 8.3 % (25-40); Mean Corpuscular HGB Conc 34.5 % (30-36); Mean Corpuscular Hemoglobin 34.1 PG (26-34); Mean Corpuscular Volume 98.8 fL (80-100); Monocytes Absolute Auto 300 /uL (0-900); Monocytes Percent Auto 9.2 % (3-14); Neutrophils Absolute Auto 2800 /uL (1500-7000); Neutrophils Percent Auto 81.2 % (50-75); Platelet Count 195 X10^3/uL (150-400); Red Blood Cell Count 2.97 X10^6/uL (4.0-5.2); Red Cell Distribution Width 17.3 % (11.6-14.8); White Blood Cell Count 3.5 X10^3/uL (4.5-11.0)
[2019-05-11 14:08] LABS: Alanine Aminotransferase 15 IU/L (<35); Albumin Globulin Ratio 1.5 (1.0-2.8); Alkaline Phosphatase 92 U/L (38-126); Aspartate Aminotransferase 24 IU/L (14-36); BUN Creatinine Ratio 18.9 (6-22); Bilirubin Total 0.5 mg/dL (0.2-1.3); Blood Urea Nitrogen 17 mg/dL (7-17); Calcium 9.4 mg/dL (8.4-10.2); Carbon Dioxide 25 mmol/L (22-32); Chloride 102 mmol/L (98-107); Estimated Glomerular Filt Rate > 60.0 mL/min (>60); Globulin 2.6 g/dL (1.7-4.1); Glucose 148 mg/dL (80-110); HEMOLYSIS < 15 (0-50); Potassium 4.1 mmol/L (3.4-5.1); Sodium 138 mmol/L (137-145); Total Protein 6.6 g/dL (6.3-8.2)
[2019-05-18 09:10] LABS: Hemoglobin 11.6 g/dL (12.0-16.0); Mean Corpuscular HGB Conc 33.3 % (30-36); Mean Corpuscular Hemoglobin 33.7 PG (26-34); Mean Corpuscular Volume 101.4 fL (80-100); Platelet Count 224 X10^3/uL (150-400); Red Blood Cell Count 3.45 X10^6/uL (4.0-5.2); Red Cell Distribution Width 18.8 % (11.6-14.8)
[2019-05-18 09:11] LABS: Add Manual Diff / Slide Review YES
[2019-05-18 09:17] LABS: INR 0.9 (0.9-1.3); Prothrombin Time 10.1 SECONDS (10.1-12.7)
[2019-05-18 09:19] VITALS: BP 93/64; PULSE 69; RESP 18; O2SAT 95
[2019-05-18 09:26] LABS: Alanine Aminotransferase 19 IU/L (<35); Albumin 3.8 g/dL (3.5-5.0); Albumin Globulin Ratio 1.5 (1.0-2.8); Alkaline Phosphatase 74 U/L (38-126); Aspartate Aminotransferase 25 IU/L (14-36); Bilirubin Total 0.4 mg/dL (0.2-1.3); Blood Urea Nitrogen 25 mg/dL (7-17); Calcium 9.4 mg/dL (8.4-10.2); Carbon Dioxide 25 mmol/L (22-32); Chloride 106 mmol/L (98-107); Estimated Glomerular Filt Rate 54.3 mL/min (>60); Globulin 2.5 g/dL (1.7-4.1); Glucose 97 mg/dL (80-110); HEMOLYSIS < 15 (0-50); Potassium 3.8 mmol/L (3.4-5.1); Sodium 139 mmol/L (137-145); Total Protein 6.3 g/dL (6.3-8.2)
--- NOTE | 2019-05-18 09:32 | ONC.PN ---
PN -Subjective Interval history: Diagnosis: Squamous cell lung cancer, likely T2 N0 Previous treatment: 1. Radiation therapy finishing February 2019 2. 2 cycles of adjuvant carboplatin and Taxol History of present illness: Patient is a 74-year-old woman who returns today for follow-up. She has been undergoing adjuvant chemotherapy for squamous cell lung cancer. She completed 2 cycles. She is due for her 3rd cycle. Since her last visit, she stopped her prednisone but notice that her a rash and itching recurred. She has since restarted and her symptoms have improved. She has noted some increasing weakness and has had a couple of falls but no injuries. She is using a walker at home now. Her appetite has been good and she has been able to gain back a couple of lb. She denies any nausea or vomiting. No fevers or chills. She does have an ongoing cough that is been nonproductive. She has had some chronic tingling in her lower extremities that has been unchanged. She has not noticed any other changes in her health. Her past medical history is notable for COPD. She has a history of atrial fibrillation. Hypercholesterolemia. She has had 2 previous episodes of anaphylaxis without obvious trigger. She takes Pepcid and Benadryl to prevent that. She has had some neuropathy in her feet for several years. She does have a history of exposure to TB from her father. She tells me that she has had prior lung nodules. - Patient Self-Reported Symptoms SR Constitution: Fatigue/Malaise SR ears, nose, mouth, throat issues: Difficulty swallowing SR respiratory issues: Shortness of breath SR Cardiovascular issues: Dizzy/lightheaded SR Genitourinary issues: Frequent urination SR Musculoskeletal issues: Muscle weakness, Difficulty walking Home Medications and Allergies Home Medications Medication Instructions Recorded Confirmed Type cholecalciferol (vitamin D3) 1 tab PO QDAY #0 11/04/16 05/18/19 History [Vitamin D3] diphenhydramine HCl [Benadryl 25 mg PO HS #0 11/04/16 05/18/19 History Allergy] famotidine [Pepcid AC] 20 mg PO HS #0 11/04/16 05/18/19 History vitamin B complex [B 1 tab PO QDAY #0 11/04/16 05/18/19 History Complex-Vitamin B12] magnesium 250 mg PO DAILY 11/25/17 05/18/19 History bupropion HCl 150 mg tablet,12 hr 150 mg PO BID #60 each 11/02/18 05/18/19 Rx sustained-release metoprolol tartrate 25 mg tablet 25 mg PO BID #180 tab 12/08/18 05/18/[address] permit #1 ea 12/14/18 05/18/19 Rx fluticasone furoate 200 1 inhalation INHALATION DAILY 12/14/18 05/18/19 History mcg-vilanterol 25 mcg/dose inhalation powder ibuprofen 800 mg tablet 800 mg PO Q6H PRN 01/13/19 05/18/19 History lovastatin 20 mg tablet 20 mg PO BID #180 tab 03/05/19 05/18/19 Rx warfarin 4 mg PO DAILY #60 tab 03/09/19 05/18/19 Rx B.breve-L.acid-L.rham-S.thermo 1 tab PO DAILY 04/27/19 05/18/19 History [Probiotic] prednisone 60 mg PO DAILY 05/04/19 05/18/19 History trazodone 50 mg PO BEDTIME PRN 30 Days #30 05/04/19 05/18/19 Rx tab Allergies Allergy/AdvReac Type Severity Reaction Status Date / Time codeine [CODEINE] Allergy Intermediate Vomiting Verified 04/12/19 19:15 morphine Allergy Intermediate Vomiting Verified 04/12/19 19:15 Exam Vital signs: Vital Signs Pulse Resp BP Pulse Ox 05/18/19 09:19 69 18 93/64 95 Intake and Output 05/17/19 05/18/19 05/18/19 23:59 07:59 15:59 Other: Weight 62.3 kg Patient Weight 05/18/19 23:59 Weight 62.3 kg - Constitutional positive no acute distress, positive thin Comments: She is in a wheelchair but in no acute distress. She is coughing during exam. - Routine HEENT Exam Head: Present: normocephalic, atraumatic Eye: Present: EOMI, PERRL. Absent: conjunctival icterus ENT: Present: mucous membranes moist, oropharynx clear - Routine Neck Exam Present: supple. Absent: lymphadenopathy, thyromegaly - Routine Respiratory Exam Present: Clear to auscultation bilaterally. Absent: rales, wheezes - Routine Cardiovascular Exam Present: RRR, S1, S2. Absent: murmur - Routine Abdominal Exam Present: soft, normoactive bowel sounds. Absent: tenderness, organomegaly, mass - Routine Extremities Exam Absent: cyanosis, clubbing, edema - Routine Back/Spine Exam Back/Spine: Absent: vertebral tenderness - Routine Skin Exam Present: intact. Absent: petechiae, rash - Routine Neurological Exam Present: alert, oriented X3 - Routine Psychiatric Exam Present: normal affect, normal thought process Results - Labs Laboratory Last Values WBC 13.0 X10^3/uL (4.5-11.0) H 05/18/19 09:00 RBC 3.45 X10^6/uL (4.0-5.2) L 05/18/19 09:00 Hgb 11.6 g/dL (12.0-16.0) L 05/18/19 09:00 Hct 35.0 % (36-46) L 05/18/19 09:00 MCV 101.4 fL (80-100) H 05/18/19 09:00 MCH 33.7 PG (26-34) 05/18/19 09:00 MCHC 33.3 % (30-36) 05/18/19 09:00 RDW 18.8 % (11.6-14.8) H 05/18/19 09:00 Plt Count 224 X10^3/uL (150-400) 05/18/19 09:00 Neut % (Auto) Not Reportable 05/18/19 09:00 Lymph % (Auto) Not Reportable 05/18/19 09:00 [place] % (Auto) Not Reportable 05/18/19 09:00 Eos % (Auto) Not Reportable 05/18/19 09:00 Baso % (Auto) Not Reportable 05/18/19 09:00 Neut # (Auto) 2800 /uL (6091-3985) 05/11/19 13:45 Lymph # (Auto) Not Reportable 05/18/19 09:00 [place] # (Auto) Not Reportable 05/18/19 09:00 Eos # (Auto) 0 /uL (0-450) 05/11/19 13:45 Baso # (Auto) Not Reportable 05/18/19 09:00 Total Counted 100 05/04/19 09:26 Seg Neutrophils % 43.0 % (38-70) 05/04/19 09:26 Band Neutrophils % 7.0 % (3-7) 05/04/19 09:26 Lymphocytes % (Manual) 30.0 % (25-45) 05/04/19 09: Atypical Lymphs % 4.0 % (-0) H 05/04/19 09:26 Monocytes % (Manual) 6.0 % (2-11) 05/04/19 09: Eosinophils % (Manual) 9.0 % (2-4) H 05/04/19 09: Basophils % (Manual) 1.0 % (0-1) 05/04/19 09: Neutrophils # (Manual) 550 /uL (7935-0900) L 05/04/19 09:26 Plt Morphology Comment 05/04/19: RBC Morphology See below 05/04/19: Rouleaux 2+ H 05/04/19: PT 10.1 SECONDS (10.1-12.7) 05/18/19 09:00 INR 0.9 (0.9-1.3) 05/18/19 09:00 Sodium 139 mmol/L (137-145) 05/18/19 09:00 Potassium 3.8 mmol/L (3.4-5.1) 05/18/19 09:00 Chloride 106 mmol/L (98-107) 05/18/19 09:00 Carbon Dioxide 25 mmol/L (22-32) 05/18/19 09:00 BUN 25 mg/dL (7-17) H 05/18/19 09:00 Creatinine 1.00 mg/dL (0.52-1.04) 05/18/19 09:00 Estimated GFR 54.3 mL/min (>60) L 05/18/19 09:00 BUN/Creatinine Ratio 25.0 (6-22) H 05/18/19 09:00 Glucose 97 mg/dL (80-110) 05/18/19 09:00 Calcium 9.4 mg/dL (8.4-10.2) 05/18/19 09:00 Total Bilirubin 0.4 mg/dL (0.2-1.3) 05/18/19 09:00 AST 25 IU/L (14-36) 05/18/19 09:00 ALT 19 IU/L (<35) 05/18/19 09:00 Alkaline Phosphatase 74 U/L (38-126) 05/18/19 09:00 Total Protein 6.3 g/dL (6.3-8.2) 05/18/19 09:00 Albumin 3.8 g/dL (3.5-5.0) 05/18/19 09:00 Globulin 2.5 g/dL (1.7-4.1) 05/18/19 09:00 Albumin/Globulin Ratio 1.5 (1.0-2.8) 05/18/19 09:00 - Imaging Additional studies: Procedures Injection of steroid (02/20/13) Injection or infusion of other therapeutic or prophylactic substance (02/20/13) Assessment and Plan (1) Lung cancer Current visit: Yes Status: Acute 73-year-old woman with squamous cell carcinoma T2 N0 of the left lung. She appears to have had a minor response to radiation. She has completed 2 cycles of chemotherapy and is due for her 3rd. She is having some toxicity particularly in the form of weakness and fatigue. She has also had some rash. She will taper her prednisone down to 40 mg a day. Will try and gradually taper that dose. She will return to clinic here in about 3 weeks for follow-up. She will be due for her 4th and final cycle at that time. She did have a right lower lobe nodule that had been a large in but could not be biopsied. We might want to consider radiation to that area.
[2019-05-18 09:35] LABS: Macrocytosis 2+; Neutrophils Absolute Manual 12220 /uL (3000-5900); Total Cells Counted 100
[2019-05-18] MEDS: ACETAMINOPHEN 325 MG TABLET 650 MG PO (10:13)
[2019-05-18] MEDS: dexAMETHasone 20 MG in SODIUM CHLORIDE 0.9% 50 ML 220 ML IV (10:14)
[2019-05-18] MEDS: diphenhydrAMINE 25 MG TABLET PO (10:14)
[2019-05-18] MEDS: SODIUM CHLORIDE 0.9% 100 ML 21 ML IV (10:16)
[2019-05-18] MEDS: ONDANSETRON 16 MG in SODIUM CHLORIDE 0.9% 50 ML 232 ML IV (10:42)
[2019-05-18] MEDS: FAMOTIDINE 20 MG/50 ML PIGGYBACK 200 MG IV (11:01)
[2019-05-18] MEDS: FOSAPREPITANT 150 MG in SODIUM CHLORIDE 0.9% 150 ML 300 ML IV (11:30)
[2019-05-18] MEDS: DEXTROSE 5% IV (12:17)
[2019-05-18] MEDS: PACLITAXEL IV (12:17)
[2019-05-18] MEDS: CARBOPLATIN IV (15:36)
[2019-05-18] MEDS: SODIUM CHLORIDE 0.9% IV (15:36)
[2019-05-25 11:23] LABS: Add Manual Diff / Slide Review NO; Basophils Absolute Auto 0 /uL (0-100); Basophils Percent Auto 0.1 % (0-2); Eosinophils Absolute Auto 0 /uL (0-450); Eosinophils Percent Auto 0.6 % (2-4); Hematocrit 48.5 % (36-46); Hemoglobin 16.8 g/dL (12.0-16.0); Lymphocytes Absolute Auto 100 /uL (1100-4500); Lymphocytes Percent Auto 2.9 % (25-40); Mean Corpuscular HGB Conc 34.7 % (30-36); Mean Corpuscular Hemoglobin 34.7 PG (26-34); Mean Corpuscular Volume 99.9 fL (80-100); Monocytes Absolute Auto 0 /uL (0-900); Monocytes Percent Auto 0.7 % (3-14); Neutrophils Absolute Auto 2400 /uL (1500-7000); Neutrophils Percent Auto 95.7 % (50-75); Platelet Count 69 X10^3/uL (150-400); Red Blood Cell Count 4.85 X10^6/uL (4.0-5.2); Red Cell Distribution Width 19.1 % (11.6-14.8); White Blood Cell Count 2.5 X10^3/uL (4.5-11.0)
[2019-05-25 11:31] LABS: Alanine Aminotransferase 27 IU/L (<35); Albumin 4.1 g/dL (3.5-5.0); Albumin Globulin Ratio 1.7 (1.0-2.8); Alkaline Phosphatase 75 U/L (38-126); Aspartate Aminotransferase 27 IU/L (14-36); BUN Creatinine Ratio 28.8 (6-22); Bilirubin Total 0.7 mg/dL (0.2-1.3); Blood Urea Nitrogen 23 mg/dL (7-17); Calcium 9.9 mg/dL (8.4-10.2); Carbon Dioxide 25 mmol/L (22-32); Chloride 101 mmol/L (98-107); Estimated Glomerular Filt Rate > 60.0 mL/min (>60); Globulin 2.4 g/dL (1.7-4.1); Glucose 111 mg/dL (80-110); HEMOLYSIS < 15 (0-50); Potassium 4.2 mmol/L (3.4-5.1); Sodium 136 mmol/L (137-145); Total Protein 6.5 g/dL (6.3-8.2)
[2019-06-08 08:35] VITALS: BP 110/71; PULSE 68; RESP 16; TEMP 36.6; O2SAT 92
[2019-06-08 08:50] LABS: Add Manual Diff / Slide Review NO; Basophils Absolute Auto 0 /uL (0-100); Basophils Percent Auto 0.2 % (0-2); Eosinophils Absolute Auto 0 /uL (0-450); Eosinophils Percent Auto 0.2 % (2-4); Hemoglobin 10.9 g/dL (12.0-16.0); Lymphocytes Absolute Auto 700 /uL (1100-4500); Lymphocytes Percent Auto 8.8 % (25-40); Mean Corpuscular HGB Conc 34.1 % (30-36); Mean Corpuscular Hemoglobin 35.5 PG (26-34); Mean Corpuscular Volume 104.2 fL (80-100); Monocytes Absolute Auto 700 /uL (0-900); Neutrophils Absolute Auto 6800 /uL (1500-7000); Neutrophils Percent Auto 82.8 % (50-75); Platelet Count 110 X10^3/uL (150-400); Red Blood Cell Count 3.07 X10^6/uL (4.0-5.2); Red Cell Distribution Width 21.4 % (11.6-14.8); White Blood Cell Count 8.2 X10^3/uL (4.5-11.0)
--- NOTE | 2019-06-08 08:50 | P.PNONC_ITS ---
PN -Subjective Interval history: Diagnosis: Squamous cell lung cancer, likely T2 N0 Previous treatment: 1. Radiation therapy finishing February 2019 2. 3 cycles of adjuvant carboplatin and Taxol History of present illness: Patient is a 74-year-old woman who returns today for follow-up. She has been undergoing adjuvant chemotherapy for squamous cell lung cancer. She completed 3 cycles. She is due for her 4th and final cycle of chemotherapy today. Since her last visit, she has been tapering her prednisone and is down to 20 mg daily. She did have some increase in her itching for about 3 days after her last infusion. It has since resolved. She feels like her strength and energy level have been improving. She feels like she is moving around a little bit better but still has some dizziness when she 1st gets up. Appetite has been good. She denies any nausea or vomiting. Bowels have been moving normally. She has had some chronic neuropathy in her feet but there has not been any worsening. She has noted some increase in her cough but no pain in the chest. Her shortness of breath has been stable. She denies any other changes in her health. Her past medical history is notable for COPD. She has a history of atrial fibrillation. Hypercholesterolemia. She has had 2 previous episodes of anap hylaxis without obvious trigger. She takes Pepcid and Benadryl to prevent that. She has had some neuropathy in her feet for several years. She does have a history of exposure to TB from her father. She tells me that she has had prior lung nodules. - Patient Self-Reported Symptoms SR Constitution: Fatigue/Malaise SR ears, nose, mouth, throat issues: Difficulty swallowing SR respiratory issues: Shortness of breath SR Cardiovascular issues: Dizzy/lightheaded SR Genitourinary issues: Frequent urination SR Musculoskeletal issues: Muscle weakness, Difficulty walking Home Medications and Allergies Home Medications Medication Instructions Recorded Confirmed Type cholecalciferol (vitamin D3) 1 tab PO QDAY #0 11/04/16 06/08/19 History [Vitamin D3] diphenhydramine HCl [Benadryl 25 mg PO HS #0 11/04/16 06/08/19 History Allergy] famotidine [Pepcid AC] 20 mg PO HS #0 11/04/16 06/08/19 History vitamin B complex [B 1 tab PO QDAY #0 11/04/16 06/08/19 History Complex-Vitamin B12] magnesium 250 mg PO DAILY 11/25/17 06/08/19 History metoprolol tartrate 25 mg tablet 25 mg PO BID #180 tab 12/08/18 06/08/[address]abled [address] permit #1 ea 12/14/18 06/08/19 Rx fluticasone furoate 200 1 inhalation INHALATION DAILY 12/14/18 06/08/19 History mcg-vilanterol 25 mcg/dose inhalation powder ibuprofen 800 mg tablet 800 mg PO Q6H PRN 01/13/19 06/08/19 History lovastatin 20 mg tablet 20 mg PO BID #180 tab 03/05/19 06/08/19 Rx warfarin 4 mg PO DAILY #60 tab 03/09/19 06/08/19 Rx B.breve-L.acid-L.rham-S.thermo 1 tab PO DAILY 04/27/19 06/08/19 History [Probiotic] prednisone 60 mg PO DAILY 05/04/19 06/08/19 History trazodone 50 mg PO BEDTIME PRN 30 Days #30 05/04/19 06/08/19 Rx tab bupropion HCl 150 mg tablet,12 hr 150 mg PO BID #60 each 05/18/19 06/08/19 Rx sustained-release Allergies Allergy/AdvReac Type Severity Reaction Status Date / Time codeine [CODEINE] Allergy Intermediate Vomiting Verified 04/12/19 19:15 morphine Allergy Intermediate Vomiting Verified 04/12/19 19:15 Exam Vital signs: Vital Signs Temp Pulse Resp BP Pulse Ox 06/08/19 08:35 97.8 F 68 16 110/71 92 Intake and Output 06/07/19 06/08/19 06/08/19 23:59 07:59 15:59 Other: Weight 61.2 kg Patient Weight 06/08/19 23:59 Weight 61.2 kg - Constitutional positive no acute distress, positive average body habitus Comments: She is in a wheelchair. - Routine HEENT Exam Head: Present: normocephalic, atraumatic Eye: Present: EOMI, PERRL. Absent: conjunctival icterus, scleral injection ENT: Present: mucous membranes moist, oropharynx clear - Routine Neck Exam Present: supple. Absent: lymphadenopathy, thyromegaly - Routine Respiratory Exam Present: Clear to auscultation bilaterally, decreased breath sounds. Absent: rales, wheezes - Routine Cardiovascular Exam Present: RRR, S1, S2. Absent: murmur - Routine Abdominal Exam Present: soft, normoactive bowel sounds. Absent: tenderness, organomegaly, mass - Routine Extremities Exam Absent: cyanosis, clubbing, edema - Routine Back/Spine Exam Back/Spine: Absent: vertebral tenderness - Routine Skin Exam Present: intact. Absent: petechiae, rash - Routine Neurological Exam Present: alert, oriented X3 - Routine Psychiatric Exam Present: normal affect, normal thought process Results - Labs Laboratory Last Values WBC 2.5 X10^3/uL (4.5-11.0) L 05/25/19 11:10 RBC 4.85 X10^6/uL (4.0-5.2) 05/25/19 11:10 Hgb 16.8 g/dL (12.0-16.0) H 05/25/19 11:10 Hct 48.5 % (36-46) H 05/25/19 11:10 MCV 99.9 fL (80-100) 05/25/19 11:10 MCH 34.7 PG (26-34) H 05/25/19 11:10 MCHC 34.7 % (30-36) 05/25/19 11:10 RDW 19.1 % (11.6-14.8) H 05/25/19 11:10 Plt Count 69 X10^3/uL (150-400) L 05/25/19 11:10 Neut % (Auto) 95.7 % (50-75) H 05/25/19 11:10 Lymph % (Auto) 2.9 % (25-40) L 05/25/19 11:10 [place] % (Auto) 0.7 % (3-14) L 05/25/19 11:10 Eos % (Auto) 0.6 % (2-4) L 05/25/19 11:10 Baso % (Auto) 0.1 % (0-2) 05/25/19 11:10 Neut # (Auto) 2400 /uL (1881-8523) 05/25/19 11:10 Lymph # (Auto) 100 /uL (8921-5415) L 05/25/19 11:10 [place] # (Auto) 0 /uL (0-900) 05/25/19 11:10 Eos # (Auto) 0 /uL (0-450) 05/25/19 11:10 Baso # (Auto) 0 /uL (0-100) 05/25/19 11:10 Total Counted 100 05/18/19 09:00 Seg Neutrophils % 92.0 % (38-70) H 05/18/19 09:00 Band Neutrophils % 2.0 % (3-7) L 05/18/19 09:00 Lymphocytes % (Manual) 4.0 % (25-45) L 05/18/19 09:00 Atypical Lymphs % 4.0 % (-0) H 05/04/19 09:26 Monocytes % (Manual) 1.0 % (2-11) L 05/18/19 09:00 Eosinophils % (Manual) 9.0 % (2-4) H 05/04/19 09:26 Basophils % (Manual) 1.0 % (0-1) 05/18/19 09:00 Neutrophils # (Manual) 63759 /uL (3605-6769) H 05/18/19 09:00 Plt Morphology Comment 05/04/19 09:26 RBC Morphology Not Reportable 05/18/19 09:00 Macrocytosis 2+ H 05/18/19 09:00 Rouleaux 2+ H 05/04/19 09:26 PT 10.1 SECONDS (10.1-12.7) 05/18/19 09:00 INR 0.9 (0.9-1.3) 05/18/19 09:00 Sodium 136 mmol/L (137-145) L 05/25/19 11:10 Potassium 4.2 mmol/L (3.4-5.1) 05/25/19 11:10 Chloride 101 mmol/L (98-107) 05/25/19 11:10 Carbon Dioxide 25 mmol/L (22-32) 05/25/19 11:10 BUN 23 mg/dL (7-17) H 05/25/19 11:10 Creatinine 0.80 mg/dL (0.52-1.04) 05/25/19 11:10 Estimated GFR > 60.0 mL/min (>60) 05/25/19 11:10 BUN/Creatinine Ratio 28.8 (6-22) H 05/25/19 11:10 Glucose 111 mg/dL (80-110) H 05/25/19 11:10 Calcium 9.9 mg/dL (8.4-10.2) 05/25/19 11:10 Total Bilirubin 0.7 mg/dL (0.2-1.3) 05/25/19 11:10 AST 27 IU/L (14-36) 05/25/19 11:10 ALT 27 IU/L (<35) 05/25/19 11:10 Alkaline Phosphatase 75 U/L (38-126) 05/25/19 11:10 Total Protein 6.5 g/dL (6.3-8.2) 05/25/19 11:10 Albumin 4.1 g/dL (3.5-5.0) 05/25/19 11:10 Globulin 2.4 g/dL (1.7-4.1) 05/25/19 11:10 Albumin/Globulin Ratio 1.7 (1.0-2.8) 05/25/19 11:10 - Imaging Additional studies: Procedures Injection of steroid (02/20/13) Injection or infusion of other therapeutic or prophylactic substance (02/20/13) Assessment and Plan (1) Lung cancer Current visit: Yes Status: Acute 73-year-old woman with squamous cell carcinoma T2 N0 of the left lung. She appears to have had a minor response to radiation. She has completed 3 cycles of chemotherapy and is due for her 4th and final cycle today. She is having some toxicity particularly in the form of weakness and fatigue. She has also had some rash. She will continue to taper her prednisone. She has had some cytopenias as well. If her counts are okay, she will proceed with her treatment today. She return to clinic in about 3 weeks for follow-up. She will be due for CT scan at that time. Will also make referral for physical therapy to help with her strengthening and deconditioning.
[2019-06-08 08:59] LABS: Alanine Aminotransferase 17 IU/L (<35); Albumin 3.9 g/dL (3.5-5.0); Albumin Globulin Ratio 1.6 (1.0-2.8); Alkaline Phosphatase 67 U/L (38-126); Aspartate Aminotransferase 21 IU/L (14-36); BUN Creatinine Ratio 21.1 (6-22); Bilirubin Total 0.5 mg/dL (0.2-1.3); Blood Urea Nitrogen 19 mg/dL (7-17); Calcium 9.4 mg/dL (8.4-10.2); Carbon Dioxide 23 mmol/L (22-32); Chloride 104 mmol/L (98-107); Estimated Glomerular Filt Rate > 60.0 mL/min (>60); Globulin 2.4 g/dL (1.7-4.1); Glucose 109 mg/dL (80-110); HEMOLYSIS < 15 (0-50); Potassium 3.8 mmol/L (3.4-5.1); Sodium 139 mmol/L (137-145); Total Protein 6.3 g/dL (6.3-8.2)
[2019-06-08] MEDS: SODIUM CHLORIDE 0.9% 100 ML 30 ML IV (09:14)
[2019-06-08 09:16] LABS: Macrocytosis 2+; Polychromasia 1+
[2019-06-08] MEDS: diphenhydrAMINE 25 MG TABLET PO (09:24)
[2019-06-08] MEDS: ACETAMINOPHEN 325 MG TABLET 650 MG PO (09:24)
[2019-06-08] MEDS: FAMOTIDINE 20 MG/50 ML PIGGYBACK 200 MG IV (09:24)
[2019-06-08 09:34] LABS: Prothrombin Time 10.9 SECONDS (10.1-12.7)
--- NOTE | 2019-06-08 09:52 | ONC.MSW ---
*Provided Last Chemo Card
[2019-06-08] MEDS: dexAMETHasone 20 MG in SODIUM CHLORIDE 0.9% 50 ML 220 ML IV (09:55)
[2019-06-08] MEDS: ONDANSETRON 16 MG in SODIUM CHLORIDE 0.9% 50 ML 232 ML IV (10:15)
[2019-06-08] MEDS: FOSAPREPITANT 150 MG in SODIUM CHLORIDE 0.9% 150 ML 300 ML IV (10:36)
[2019-06-08] MEDS: DEXTROSE 5% IV (11:24)
[2019-06-08] MEDS: PACLITAXEL IV (11:24)
--- NOTE | 2019-06-08 11:44 | ONC.SCHED ---
Sent referral to [facility] per order
[2019-06-08] MEDS: SODIUM CHLORIDE 0.9% IV (14:47)
[2019-06-08] MEDS: CARBOPLATIN IV (14:47)
[2019-06-15 13:32] LABS: Add Manual Diff / Slide Review NO; Basophils Absolute Auto 0 /uL (0-100); Basophils Percent Auto 0.4 % (0-2); Eosinophils Absolute Auto 0 /uL (0-450); Eosinophils Percent Auto 0.7 % (2-4); Hematocrit 32.8 % (36-46); Hemoglobin 11.2 g/dL (12.0-16.0); Lymphocytes Absolute Auto 400 /uL (1100-4500); Lymphocytes Percent Auto 14.7 % (25-40); Mean Corpuscular HGB Conc 34.1 % (30-36); Mean Corpuscular Hemoglobin 35.7 PG (26-34); Mean Corpuscular Volume 104.7 fL (80-100); Monocytes Absolute Auto 100 /uL (0-900); Neutrophils Absolute Auto 2300 /uL (1500-7000); Neutrophils Percent Auto 82.2 % (50-75); Platelet Count 77 X10^3/uL (150-400); Red Blood Cell Count 3.13 X10^6/uL (4.0-5.2); Red Cell Distribution Width 21.1 % (11.6-14.8); White Blood Cell Count 2.8 X10^3/uL (4.5-11.0)
[2019-06-15 13:44] LABS: Alanine Aminotransferase 20 IU/L (<35); Albumin 4.1 g/dL (3.5-5.0); Albumin Globulin Ratio 1.6 (1.0-2.8); Alkaline Phosphatase 66 U/L (38-126); Aspartate Aminotransferase 21 IU/L (14-36); BUN Creatinine Ratio 34.4 (6-22); Bilirubin Total 0.5 mg/dL (0.2-1.3); Blood Urea Nitrogen 31 mg/dL (7-17); Calcium 9.6 mg/dL (8.4-10.2); Carbon Dioxide 23 mmol/L (22-32); Chloride 100 mmol/L (98-107); Estimated Glomerular Filt Rate > 60.0 mL/min (>60); Globulin 2.6 g/dL (1.7-4.1); Glucose 139 mg/dL (80-110); HEMOLYSIS < 15 (0-50); Potassium 3.6 mmol/L (3.4-5.1); Sodium 135 mmol/L (137-145); Total Protein 6.7 g/dL (6.3-8.2)
[2019-06-15 14:04] LABS: Anisocytosis 2+; Macrocytosis 3+
--- NOTE | 2019-06-15 15:01 | PC.NURSE ---
PICC line discontinued today at 1430 after verbal order received from Dr. Rosen. Patient tolerated procedure well and gauze dressing applied with antibiotic ointment. Removal clean and intact tip of line visualized. Patient waited 30 minutes after removal. No signs of distress. Patient discharged home.
--- NOTE | 2019-07-21 12:25 | PC.NURSE ---
Pt missed scheduled appt today in clinic. Called to discuss rescheduling of appt. Pt reports nausea, decreased appetite, weakness, losing weight and trouble swallowing reports I'm down to just liquids. Pt further reports SOB at times, able to recover with rest. Denies chest pain. Afebrile. Pt reports current cigarette consumption is down to 2 a day. According to pt she had appointment with physical therapy at 9am, but I can't do early appointments. Pt reports symptoms are the worst in the morning. Pt explained to this show card writer that she rescheduled ohysical therapy appts for 3pm starting next Friday. This show card writer called over to pt's PCP's office, spoke with Kalani and made appt form tomorrow 07/22/19 at 11:30 with 11:15 check in, with Dr. Tapia r/t pts current symptoms. Pt aware and agreeable to plan, states thank you. Pt denies acute distress during phone call. Instructed pt that if symptoms escalate to seek immediate medical attention or call 911, pt verbalized understanding states I know, I know. Pt verbalizes understanding to plan. Also, rescheduled pt appt with ONC provider here at clinic for 08/04/19 at 13:40 with 13:20 check in, pt aware.
--- NOTE | 2019-08-04 14:27 | ONC.PN ---
PN -Subjective Interval history: Diagnosis: Squamous cell lung cancer, likely T2 N0 Previous treatment: 1. Radiation therapy finishing February 2019 History of present illness: I'm seeing this patient for the 1st time today resuming care from Dr. Rosen 74-year-old lady with presenting in October 2018 with a left hilar mass and shortness of breath. In addition there was a right lower lobe lung nodule. The left hilar mass measured 3.2 cm and was PET positive, on the right lower lobe mass had only an FDG uptake of 2.9. Biopsy revealed squamous cell carcinoma. In addition the PET scan had shown uptake along the vocal cords, she had an ENT evaluation however I do not have a record of that. She was felt not to be a surgical candidate and was treated with sequential therapy using radiation therapy 1st in 30 fractions. She was then followed by adjuvant chemotherapy with carboplatin and Taxol receiving carboplatin AUC of 5 and Taxol at 175 milligram/meters sq every 3 weeks x4 cycles, last cycle given on June 08, 2019 She has not had any further visit since then. CT scan of chest with contrast of June 09, 2019 was reviewed: A previous right lower lobe lung nodule has diminished in size by approximately 50% Severe emphysematous changes. Left hilar mass has diminished in size currently only 2.5 x 1.9 cm The patient has not been seen in the clinic since the visit of June 08, 2019 with her last cycle of chemotherapy. She has had a continues declining functional status, can barely ambulate due to sense of weakness in her legs that easily give away. She has easily short of breath with minimal ambulation attempt. She has difficulties swallowing and has lost 10 lb since May. Her past medical history is notable for COPD. She has a history of atrial fibrillation. Hypercholesterolemia. She has had 2 previous episodes of anaphylaxis without obvious trigger. She takes Pepcid and Benadryl to prevent that. She has had some neuropathy in her feet for several years. She does have a history of exposure to TB from her father. - Patient Self-Reported Symptoms SR Constitution: Fatigue/Malaise SR ears, nose, mouth, throat issues: Difficulty swallowing SR respiratory issues: Shortness of breath SR Cardiovascular issues: Dizzy/lightheaded SR Genitourinary issues: Frequent urination SR Musculoskeletal issues: Muscle weakness, Difficulty walking Home Medications and Allergies Home Medications Medication Instructions Recorded Confirmed Type cholecalciferol (vitamin D3) 1 tab PO QDAY #0 11/04/16 08/04/19 History [Vitamin D3] diphenhydramine HCl [Benadryl 25 mg PO HS #0 11/04/16 08/04/19 History Allergy] famotidine [Pepcid AC] 20 mg PO HS #0 11/04/16 08/04/19 History vitamin B complex [B 1 tab PO QDAY #0 11/04/16 08/04/19 History Complex-Vitamin B12] magnesium 250 mg PO DAILY 11/25/17 08/04/19 History metoprolol tartrate 25 mg tablet 25 mg PO BID #180 tab 12/08/18 08/04/19 Rx Disabled parking permit #1 ea 12/14/18 08/04/19 Rx fluticasone furoate 200 1 inhalation INHALATION DAILY 12/14/18 08/04/19 History mcg-vilanterol 25 mcg/dose inhalation powder ibuprofen 800 mg tablet 800 mg PO Q6H PRN 01/13/19 08/04/19 History B.breve-L.acid-L.rham-S.thermo 1 tab PO DAILY 04/27/19 08/04/19 History [Probiotic] trazodone 50 mg PO BEDTIME PRN 30 Days #30 05/04/19 08/04/19 Rx tab bupropion HCl 150 mg tablet,12 hr 150 mg PO BID #60 each 05/18/19 08/04/19 Rx sustained-release lovastatin 20 mg tablet 20 mg PO BID #180 tab 07/01/19 08/04/19 Rx budesonide-formoterol HFA 80 2 puff INHALATION BID #10.2 gram 08/04/19 08/04/19 Rx mcg-4.5 mcg/actuation aerosol inhaler Allergies Allergy/AdvReac Type Severity Reaction Status Date / Time codeine [CODEINE] Allergy Intermediate Vomiting Verified 08/04/19 10:57 morphine Allergy Intermediate Vomiting Verified 08/04/19 10:57 Exam - Constitutional positive mild distress, positive thin - Routine HEENT Exam ENT: Present: mucous membranes dry - Routine Neck Exam Absent: lymphadenopathy - Routine Chest/Breast/Axilla Exam Axillae: Absent: lymphadenopathy - Routine Respiratory Exam Present: Clear to auscultation bilaterally - Routine Cardiovascular Exam Present: irregular rhythm - Routine Abdominal Exam Present: soft - Routine Extremities Exam Absent: edema - Additional findings Additional findings: Patient is in wheelchair. With assistance she is able to get up however can ambulate very slowly and is weak. No footdrop. She has no focal neurological deficits Results - Labs Laboratory Last Values WBC 2.8 X10^3/uL (4.5-11.0) L 06/15/19 13:20 RBC 3.13 X10^6/uL (4.0-5.2) L 06/15/19 13:20 Hgb 11.2 g/dL (12.0-16.0) L 06/15/19 13:20 Hct 32.8 % (36-46) L 06/15/19 13:20 MCV 104.7 fL (80-100) H 06/15/19 13:20 MCH 35.7 PG (26-34) H 06/15/19 13:20 MCHC 34.1 % (30-36) 06/15/19 13:20 RDW 21.1 % (11.6-14.8) H 06/15/19 13:20 Plt Count 77 X10^3/uL (150-400) L 06/15/19 13:20 Neut % (Auto) 82.2 % (50-75) H 06/15/19 13:20 Lymph % (Auto) 14.7 % (25-40) L 06/15/19 13:20 [place] % (Auto) 2.0 % (3-14) L 06/15/19 13:20 Eos % (Auto) 0.7 % (2-4) L 06/15/19 13:20 Baso % (Auto) 0.4 % (0-2) 06/15/19 13:20 Neut # (Auto) 2300 /uL (1570-4293) 06/15/19 13:20 Lymph # (Auto) 400 /uL (0576-1947) L 06/15/19 13:20 Summit # (Auto) 100 /uL (0-900) 06/15/19 13:20 Eos # (Auto) 0 /uL (0-450) 06/15/19 13:20 Baso # (Auto) 0 /uL (0-100) 06/15/19 13:20 Total Counted 100 05/18/19 09:00 Seg Neutrophils % 92.0 % (38-70) H 05/18/19 09:00 Band Neutrophils % 2.0 % (3-7) L 05/18/19 09:00 Lymphocytes % (Manual) 4.0 % (25-45) L 05/18/19 09:00 Atypical Lymphs % 4.0 % (-0) H 05/04/19 09:26 Monocytes % (Manual) 1.0 % (2-11) L 05/18/19 09:00 Eosinophils % (Manual) 9.0 % (2-4) H 05/04/19 09:26 Basophils % (Manual) 1.0 % (0-1) 05/18/19 09:00 Neutrophils # (Manual) 35045 /uL (5892-4041) H 05/18/19 09:00 Plt Morphology Comment 05/04/19 09:26 RBC Morphology See below 06/15/19 13:20 Polychromasia 1+ H 06/08/19 08:23 Anisocytosis 2+ H 06/15/19 13:20 Macrocytosis 3+ H 06/15/19 13:20 Rouleaux 2+ H 05/04/19 09:26 PT 10.9 SECONDS (10.1-12.7) 06/08/19 08:23 INR 1.0 (0.9-1.3) 06/08/19 08:23 Sodium 135 mmol/L (137-145) L 06/15/19 13:20 Potassium 3.6 mmol/L (3.4-5.1) 06/15/19 13:20 Chloride 100 mmol/L (98-107) 06/15/19 13:20 Carbon Dioxide 23 mmol/L (22-32) 06/15/19 13:20 BUN 31 mg/dL (7-17) H 06/15/19 13:20 Creatinine 0.90 mg/dL (0.52-1.04) 06/15/19 13:20 Estimated GFR > 60.0 mL/min (>60) 06/15/19 13:20 BUN/Creatinine Ratio 34.4 (6-22) H 06/15/19 13:20 Glucose 139 mg/dL (80-110) H 06/15/19 13:20 Calcium 9.6 mg/dL (8.4-10.2) 06/15/19 13:20 Total Bilirubin 0.5 mg/dL (0.2-1.3) 06/15/19 13:20 AST 21 IU/L (14-36) 06/15/19 13:20 ALT 20 IU/L (<35) 06/15/19 13:20 Alkaline Phosphatase 66 U/L (38-126) 06/15/19 13:20 Total Protein 6.7 g/dL (6.3-8.2) 06/15/19 13:20 Albumin 4.1 g/dL (3.5-5.0) 06/15/19 13:20 Globulin 2.6 g/dL (1.7-4.1) 06/15/19 13:20 Albumin/Globulin Ratio 1.6 (1.0-2.8) 06/15/19 13:20 - Imaging Additional studies: Procedures Injection of steroid (02/20/13) Injection or infusion of other therapeutic or prophylactic substance (02/20/13) Assessment and Plan (1) Lung cancer Current visit: Yes Status: Acute 74-year-old lady whom I'm seeing for the 1st time today resuming care from Dr. Rosen Diagnosis of squamous cell carcinoma of the lung from a left hilar mass abutting the esophagus. This lesion was PET positive. There was a smaller lung nodule in the right to lower lobe of the lung however issue we was indeterminate with 2.6. No evidence of distant metastases and mediastinal uptake otherwise. This was interpreted as T2 N0 M0 lung squamous cell carcinoma. She has significant emphysema and relatively reduced functional status and was treated with sequential single modality therapy receiving radiation therapy 1st in 30 fractions followed by systemic chemotherapy with carboplatin and Taxol x4 cycles, last dose given on June 08, 2019. She received Taxol at the full dose of 175 milligram/meter squared every [address] scan of the chest that was ordered with last visit with Dr. Rosen on June 08 was done the very next day. H showed improvement of the left hilar mass down to 2.6 cm. However the contralateral right lower lobe lung nodule has also diminished by 50%. Therefore it is possible that the contralateral lung nodule was also malignancy, presumably possible intrathoracic stage IV disease versus an independent primary lung tumor. The patient has suffered significant toxicity from the above treatment in the setting of pre-existing severe comorbidities. She is currently barely able to walk due to deconditioning and some degree of peripheral neuropathy. In addition she has been losing weight and has dysphagia for solids, possibly due to esophageal stricture from radiation. Of note her PET scan had shown some uptake in the vocal cord region and she was referred for ENT evaluation but that never occurred. Lab studies of today did not show any major derangements with a creatinine of 1.1, however slight elevation of alkaline phosphatase. CBC with mild anemia no significant abnormality. Recommended continuing work with physical therapy, which was just started couple of days ago Referral sent to Gastroenterology for EGD and possible dilation as needed for suspected esophageal stricture associated with radiation therapy to the neighboring area. Referral to ENT for evaluation of PET scan abnormality at the level of vocal cord and dysphagia for direct laryngoscopy. The patient might have had some degree of postradiation pneumonitis flared up by full-dose Taxol which has improved previously by prednisone use for her rash. She needs an updated imaging and should have a CT of chest abdomen and pelvis with contrast in the next few days to reassess pulmonary status and rule out distant metastases. Follow-up in 2-3 weeks
[2019-08-04 15:09] VITALS: BP 91/60; PULSE 73; RESP 16; TEMP 36.4; O2SAT 97
[2019-08-04 15:37] LABS: Add Manual Diff / Slide Review NO; Basophils Absolute Auto 100 /uL (0-100); Basophils Percent Auto 1.4 % (0-2); Eosinophils Absolute Auto 100 /uL (0-450); Eosinophils Percent Auto 0.9 % (2-4); Hematocrit 33.1 % (36-46); Hemoglobin 11.2 g/dL (12.0-16.0); Lymphocytes Absolute Auto 700 /uL (1100-4500); Lymphocytes Percent Auto 8.4 % (25-40); Mean Corpuscular HGB Conc 33.9 % (30-36); Mean Corpuscular Hemoglobin 35.9 PG (26-34); Mean Corpuscular Volume 105.8 fL (80-100); Monocytes Absolute Auto 600 /uL (0-900); Monocytes Percent Auto 7.2 % (3-14); Neutrophils Absolute Auto 6800 /uL (1500-7000); Neutrophils Percent Auto 82.1 % (50-75); Platelet Count 289 X10^3/uL (150-400); Red Blood Cell Count 3.13 X10^6/uL (4.0-5.2); Red Cell Distribution Width 17.1 % (11.6-14.8); White Blood Cell Count 8.3 X10^3/uL (4.5-11.0)
[2019-08-04 15:42] LABS: Alanine Aminotransferase 14 IU/L (<35); Albumin 4.2 g/dL (3.5-5.0); Albumin Globulin Ratio 1.3 (1.0-2.8); Alkaline Phosphatase 197 U/L (38-126); Aspartate Aminotransferase 22 IU/L (14-36); BUN Creatinine Ratio 14.5 (6-22); Bilirubin Total 0.3 mg/dL (0.2-1.3); Blood Urea Nitrogen 16 mg/dL (7-17); Calcium 10.2 mg/dL (8.4-10.2); Carbon Dioxide 27 mmol/L (22-32); Chloride 100 mmol/L (98-107); Estimated Glomerular Filt Rate 48.7 mL/min (>60); Globulin 3.2 g/dL (1.7-4.1); Glucose 106 mg/dL (80-110); HEMOLYSIS < 15 (0-50); Potassium 4.2 mmol/L (3.4-5.1); Sodium 136 mmol/L (137-145); Total Protein 7.4 g/dL (6.3-8.2)
--- NOTE | 2019-08-10 11:35 | ONC.SCHED ---
Referral to [facility] M for Radha with appointment for consult: 08/13/19 10:30 check-in for 11:00 Dr. Bennett. Provided phone # in case patient needs to reschedule.
--- NOTE | 2019-08-11 10:39 | ONC.SCHED ---
[facility] is ready to schedule patient. They called and left a message on 08/06 to get her scheduled. I told her today to please call them to get her scheduled. He indicated that he would.
--- NOTE | 2019-08-30 08:26 | ONC.MSW ---
*Sent bereavement card.
== END ==
PROVIDERS: Family Provider Family Medicine; PCP Family Medicine
DX: C34.02 Malignant neoplasm of left main bronchus (principal); R13.10 Dysphagia, unspecified; G62.9 Polyneuropathy, unspecified; R63.4 Abnormal weight loss; R06.02 Shortness of breath; J43.9 Emphysema, unspecified; R53.1 Weakness; I48.91 Unspecified atrial fibrillation; E78.00 Pure hypercholesterolemia, unspecified
CPT/HCPCS: 36415; 36592; 71046; 80053; 85025; 85610; 96360; 96365; 96375; 96413; 96415; 96417; 96523; 99205; 99214; 99215; J1100; J1453; J2405; J7060; J9045; J9267

== ENCOUNTER 2019-08-09 10:30 | Outpatient (RCR) | payer MEDICARE, SELFPAY ==
--- NOTE | 2019-07-29 15:00 | PT.OIE ---
Current Diagnoses Malignant neoplasm of unspecified part of unspecified bronchus or lung (07/29/19) Past Medical History (Last Updated 07/22/19 @ 12:03 by Christofer Tapia DO) Allergy (Chronic Unknown) Atrial fibrillation (Chronic Unknown) COPD (chronic obstructive pulmonary disease) (Chronic Unknown) Dysphagia (Acute) GERD (gastroesophageal reflux disease) (Chronic ~2012) Hallucinations, visual (Acute) Hyperlipidemia (Chronic Unknown) Squamous cell lung cancer (Acute) Past Surgical History (Last Updated 07/22/19 @ 11:59 by Christofer Tapia DO) S/P radiation > 12 weeks (Acute) Status post chemotherapy (Acute) Visit Care Team Role Provider Type Christofer Tapia DO Primary Care Provider Physician Specialty: [facility] Address: [address] [place] [address], [id number] Email: Polly Miller DO Attending Provider Physician Specialty: [facility] Address: [address] [place] [address], [facility] [address], [place], [address] Email: [email or web address] Physical Therapy Initial Evaluation PT-OP-A Visit Information Start: 07/15/19 10:35 Freq: Status: Active Protocol: Document 07/29/19 13:06 MB (Rec: 07/29/19 13:52 MB [id number]) Out-Patient Physical Therapy Visit Information Visit Information Visit Type Initial Evaluation Visit Note Medicare, unlimited visits Visit Start Time 13:06 Visit Stop Time 14:56 Total Visit Minutes 40 Visit Number 1 Evaluation Information Evaluation Date 07/29/19 Precautions Precautions Fall risk PT-OP-B Current Condition Start: 07/15/19 10:35 Freq: Status: Active Protocol: Document 07/29/19 13:06 MB (Rec: 07/29/19 13:52 MB [id number]) Current Condition History of Current Condition Onset Date August 2018 Current Complaints SOB History of Current Condition Pt with history of squamous cell lung CA found 09/15. She underwent chemotherapy January to May 2019. She underwent 21 days of radiation in November and December 2018. Her biggest concern is SOB and COTO with walking. She is walking in the house with walker with 4 wheels. She uses cane in the BR. Her goal is to be able to walk better and remain upright. She has low BP . She has been falling. She fell last week. She feels light- headed when up and her legs give way. She is falling twice a month. She is sleeping in a bed with two pillows. She is having trouble swallowing. It started last summer during radiaion. She has trouble getting her pills down. She is only able to do liquids. She had radiation on the right side of her chest. Pt does not know if she has to have more chemo or not. Her oncologist and she is going to meet a new one next week. PMH includes: ongoing smoking (pt and ), a-fib, HLD, rectal bleed. She does not report dizziness lying down. She found she can only lie on her left side. Her back hurts with lying supine. She feels light-headed when up. She has 2 rails to get into the house and no rail. She uses cane and support. Pt takes a statin and metoprolol. Pt is not taking a blood thinner. Pt has O2 that she uses at home. Pt does not have a problem with pain. Prior Treatments and Tests Chemo and radiation Future Testing and Treatments Planned Pt does not yet know if she needs more chemo or radiation at this time Treatment Goals Patient/Caregiver Goals To walk better and stay upright Prior Functional Status Baseline Function- ADL's Needs Assist Baseline Function- Mobility Needs Assist Baseline Function- Gait With RW in home, cane in bathroom, nearby whe she leaves house Baseline Function- Other Falls Personal Factors Other Personal Factors That May Effect Questionable state of CA Therapy/Recovery PT-OP-C Subjective Start: 07/15/19 10:35 Freq: Status: Active Protocol: Document 07/29/19 13:06 MB (Rec: 07/29/19 13:52 MB [id number]) OP-PT Subjective Patient Comments Patient Comments Goal for therapy is to walk better PT-OP-G Mobility & Gait Start: 07/29/19 14:45 Freq: Status: Active Protocol: Document 07/29/19 13:06 MB (Rec: 07/29/19 14:48 MB [id number]) OP Mobility Evaluation Transfers Sit to Stand CGA, pt pushes up from w/c OP Gait Assessment Gait Gait Assistance Required: Contact Guard Assist Distance (Feet) 20 Assistive Devices Assistive Device Gait Belt,Front Wheeled Walker Gait Deviations General Gait Pattern Decreased Stride Length, Decreased Feet Clearance, Flexed Trunk Factors Limiting Gait Function Factors Limiting Gait Function Decreased Activity Tolerance, Decreased Strength Comments Gait Comments Pt presents with slow gait and she states that she cannot walk further than 20 feet because she feels her regular symptoms of light-headedness and COTO. O2 sats on RA are 95% and HR is 74 BPM. pushes w/c behind and pt sits back in chair PT-OP-M Strength Start: 07/15/19 10:35 Freq: Status: Active Protocol: Document 07/29/19 13:06 MB (Rec: 07/29/19 14:45 MB [id number]) Shoulder Strength Shoulder Manual Muscle Testing Right Flexion 4 Good Left Flexion 4 Good Elbow/Forearm Strength Elbow and Forearm Manual Muscle Testing Right Flexion (C6) 5 Normal Extension (C7) 5 Normal Left Flexion (C6) 5 Normal Extension (C7) 5 Normal Hip Strength Hip Manual Muscle Testing Right Flexion (L2) 3+ Fair+ Comments Pt sitting Left Flexion (L2) 3 Fair Comments Pt sitting Knee Strength Knee Manual Muscle Testing Right Flexion (S2) 4 Good Extension (L3) 4 Good Left Flexion (S2) 3- Fair- Extension (L3) 3+ Fair+ Ankle/Foot Strength Ankle and Foot Manual Muscle Testing Right Dorsiflexion (L4) 3+ Fair+ Comments Great toe extension 3+/5 Left Dorsiflexion (L4) 3+ Fair+ Comments Great toe extension 3+/5 PT-OP-T Assessment and Plan Start: 07/15/19 10:35 Freq: Status: Active Protocol: Document 07/29/19 13:06 MB (Rec: 07/29/19 14:45 MB [id number]) Physical Therapy Assessment Rehab Potential Rehabilitation Potential Fair Evaluation Complexity Number of Personal Factors/Comorbidities 1-2 Number of Body Systems Impaired 3 Clinical Presentation at Evaluation Evolving Impairments Impairments Activity Tolerance,Balance, Functional Activities, Functional Mobility,Gait,Pain, Posture,ROM,Strength Other Concerns Barriers to Rehabilitation Falls, questionable status of lung CA, pt con't to smoke Goals 4 Veneer Clipper Goal (LTG) Pt will perform progressive HEP with I including breathing , postural, strengthening and balance exercises to improve strength by 09/27/2019. LTG Duration 8 weeks 3 Senior Living Goal (LTG) Pt will deny falls for 2 months by 09/27/2019. LTG Duration 8 weeks 2 Veneer Clipper Goal (LTG) Pt will perform 5 reps sit to stand without UE support in less than 13 sec to reflect improved LE strength and pulmonary response to functional mobility by 2019. LTG Duration 8 weeks 1 Senior Living Goal (LTG) Pt will gait train at least 800' with LRAD in 6 minutes in order to increase functional gait distance and decrease fall risk by 09/27/2019. LTG Duration 8 weeks Assessment Summary Assessment Pt is a 74 y/o female presenting with multiple medical issues including squamous cell lung cancer on the right of questionable status. Pt follows-up with oncologist next week to determine future care. She and her con't to smoke. She has O2 at home that she wears as needed. Her O2 sats remain in the mid to high 90% throughout assessment and her HR remains in the low 70s BPM. She presents with kyphotic posture, COTO, LE weakness that impairs gait. She reports light-headedenss that is common with being up and reports low BP. Pt reports trouble swallowing and that her pills got stuck in her throat this morning. She reports history of abnormal endoscopy. PT calls Dr. Tapia's office to request possible speech consult for swallow study. Pt will benefit from PT for strengthening and mobility and gait. Barriers include cancer affecting pulmonary performance, light- headedness, a-fib, overall deconditioning and ongoing smoking. She is not yet taking a blood thinner, though she has an order for one. She is at high risk for DVT in setting of lung CA and a-fib. PT will con't to monitor O2 sats and HR. Physical Therapy Plan Frequency and Duration Frequency of Treatment 2x/Week Duration of Treatment 8 weeks Plan of Care Start Date 07/29/19 Plan of Care End Date 09/27/19 Therapeutic Interventions Therapeutic Interventions Balance Training,Canalithic Repositioning,Gait Training, Home Exercise Program,Manual Therapy,Neuromuscular Re- education,Patient/Caregiver Education,Self-Care/Home Management,Soft Tissue Mobilization,Therapeutic Activities,Therapeutic Exercises,Vestibular Rehabilitation,Wheelchair Management Other Referrals/Consults Referrals/Consults Recommended Swallow study Next Visit Focus/Plan Next Note Type Treatment Note Next Visit Plan Initiate exercises
--- NOTE | 2019-07-29 15:00 | PT.OPPOC ---
Physical, Occupational & Speech Therapy At [facility] Current Diagnoses Malignant neoplasm of unspecified part of unspecified bronchus or lung (07/29/19) Visit Care Team Role Provider Type Christofer Tapia DO Primary Care Provider Physician Specialty: [facility] Address: [address] [place] [address], [id number] Email: Polly Miller DO Attending Provider Physician Specialty: [facility] Address: [address] [place] [address], [address], [place], [address] Email: [email or web address] Plan Of Care PT-OP-T Assessment and Plan Start: 07/15/19 10:35 Freq: Status: Active Protocol: Document 07/29/19 13:06 MB (Rec: 07/29/19 14:45 MB [id number]) Physical Therapy Assessment Rehab Potential Rehabilitation Potential Fair Evaluation Complexity Number of Personal Factors/Comorbidities 1-2 Number of Body Systems Impaired 3 Clinical Presentation at Evaluation Evolving Impairments Impairments Activity Tolerance,Balance, Functional Activities, Functional Mobility,Gait,Pain, Posture,ROM,Strength Other Concerns Barriers to Rehabilitation Falls, questionable status of lung CA, pt con't to smoke Goals 4 Manager Inside Goal (LTG) Pt will perform progressive HEP with I including breathing , postural, strengthening and balance exercises to improve strength by 09/27/2019. LTG Duration 8 weeks 3 [facility] Goal (LTG) Pt will deny falls for 2 months by 09/27/2019. LTG Duration 8 weeks 2 Manager Inside Goal (LTG) Pt will perform 5 reps sit to stand without UE support in less than 13 sec to reflect improved LE strength and pulmonary response to functional mobility by 2019. LTG Duration 8 weeks 1 Manager Inside Goal (LTG) Pt will gait train at least 800' with LRAD in 6 minutes in order to increase functional gait distance and decrease fall risk by 09/27/2019. LTG Duration 8 weeks Assessment Summary Assessment Pt is a 74 y/o female presenting with multiple medical issues including squamous cell lung cancer on the right of questionable status. Pt follows-up with oncologist next week to determine future care. She and her con't to smoke. She has O2 at home that she wears as needed. Her O2 sats remain in the mid to high 90% throughout assessment and her HR remains in the low 70s BPM. She presents with kyphotic posture, COTO, LE weakness that impairs gait. She reports light-headedenss that is common with being up and reports low BP. Pt reports trouble swallowing and that her pills got stuck in her throat this morning. She reports history of abnormal endoscopy. PT calls Dr. Tapia's office to request possible speech consult for swallow study. Pt will benefit from PT for strengthening and mobility and gait. Barriers include cancer affecting pulmonary performance, light- headedness, a-fib, overall deconditioning and ongoing smoking. She is not yet taking a blood thinner, though she has an order for one. She is at high risk for DVT in setting of lung CA and a-fib. PT will con't to monitor O2 sats and HR. Physical Therapy Plan Frequency and Duration Frequency of Treatment 2x/Week Duration of Treatment 8 weeks Plan of Care Start Date 07/29/19 Plan of Care End Date 09/27/19 Therapeutic Interventions Therapeutic Interventions Balance Training,Canalithic Repositioning,Gait Training, Home Exercise Program,Manual Therapy,Neuromuscular Re- education,Patient/Caregiver Education,Self-Care/Home Management,Soft Tissue Mobilization,Therapeutic Activities,Therapeutic Exercises,Vestibular Rehabilitation,Wheelchair Management Other Referrals/Consults Referrals/Consults Recommended Swallow study Next Visit Focus/Plan Next Note Type Treatment Note Next Visit Plan Initiate exercises Plan of Care Dates Plan of Care Start Date 07/29/19 Plan of Care End Date 09/27/19 Electronically Signed by: Alondra Ibanez PT 07/29/19 1500 Please Sign and Return: I have reviewed this Plan of Care and certify that the skilled therapy services above are required to meet the patient?s needs. Physician Signature Date Printed Name and Credentials Clinical Instructor Signature Printed Name and Credentials
--- NOTE | 2019-08-05 15:59 | PT.OTN ---
Current Diagnoses Malignant neoplasm of unspecified part of unspecified bronchus or lung (08/05/19) Physical Therapy Treatment Note PT-OP-A Visit Information Start: 07/15/19 10:35 Freq: Status: Active Protocol: Document 08/05/19 15:18 MB (Rec: 08/05/19 15:59 MB [id number]) Out-Patient Physical Therapy Visit Information Visit Information Visit Type Treatment Note Visit Note Medicare, unlimited visits Given multiple medical issues, starting PT slowly with interventions and length of treatment Visit Start Time 15:18 Visit Stop Time 16:48 Total Visit Minutes 30 Visit Number 2 PT-OP-B Current Condition Start: 07/15/19 10:35 Freq: Status: Active Protocol: Document 07/29/19 13:06 MB (Rec: 07/29/19 13:52 MB [id number]) Current Condition History of Current Condition Onset Date August 2018 Current Complaints SOB History of Current Condition Pt with history of squamous cell lung CA found 09/15. She underwent chemotherapy January to May 2019. She underwent 21 days of radiation in November and December 2018. Her biggest concern is SOB and COTO with walking. She is walking in the house with walker with 4 wheels. She uses cane in the BR. Her goal is to be able to walk better and remain upright. She has low BP . She has been falling. She fell last week. She feels light- headed when up and her legs give way. She is falling twice a month. She is sleeping in a bed with two pillows. She is having trouble swallowing. It started last summer during radiaion. She has trouble getting her pills down. She is only able to do liquids. She had radiation on the right side of her chest. Pt does not know if she has to have more chemo or not. Her oncologist and she is going to meet a new one next week. PMH includes: ongoing smoking (pt and ), a-fib, HLD, rectal bleed. She does not report dizziness lying down. She found she can only lie on her left side. Her back hurts with lying supine. She feels light-headed when up. She has 2 rails to get into the house and no rail. She uses cane and support. Pt takes a statin and metoprolol. Pt is not taking a blood thinner. Pt has O2 that she uses at home. Pt does not have a problem with pain. Prior Treatments and Tests Chemo and radiation Future Testing and Treatments Planned Pt does not yet know if she needs more chemo or radiation at this time Treatment Goals Patient/Caregiver Goals To walk better and stay upright Prior Functional Status Baseline Function- ADL's Needs Assist Baseline Function- Mobility Needs Assist Baseline Function- Gait With RW in home, cane in bathroom, nearby whe she leaves house Baseline Function- Other Falls Personal Factors Other Personal Factors That May Effect Questionable state of CA Therapy/Recovery PT-OP-C Subjective Start: 07/15/19 10:35 Freq: Status: Active Protocol: Document 08/05/19 15:18 MB (Rec: 08/05/19 15:59 MB [id number]) OP-PT Subjective Patient Comments Patient Comments Pt states that she is tired and gets more tired today. She is taking a new inhaler starting today and has not noticed a difference yet. Pt states that her MBS is 2019. PT-OP-G Mobility & Gait Start: 07/29/19 14:45 Freq: Status: Active Protocol: Document 07/29/19 13:06 MB (Rec: 07/29/19 14:48 MB [id number]) OP Mobility Evaluation Transfers Sit to Stand CGA, pt pushes up from w/c OP Gait Assessment Gait Gait Assistance Required: Contact Guard Assist Distance (Feet) 20 Assistive Devices Assistive Device Gait Belt,Front Wheeled Walker Gait Deviations General Gait Pattern Decreased Stride Length, Decreased Feet Clearance, Flexed Trunk Factors Limiting Gait Function Factors Limiting Gait Function Decreased Activity Tolerance, Decreased Strength Comments Gait Comments Pt presents with slow gait and she states that she cannot walk further than 20 feet because she feels her regular symptoms of light-headedness and COTO. O2 sats on RA are 95% and HR is 74 BPM. pushes w/c behind and pt sits back in chair PT-OP-M Strength Start: 07/15/19 10:35 Freq: Status: Active Protocol: Document 07/29/19 13:06 MB (Rec: 07/29/19 14:45 MB [id number]) Shoulder Strength Shoulder Manual Muscle Testing Right Flexion 4 Good Left Flexion 4 Good Elbow/Forearm Strength Elbow and Forearm Manual Muscle Testing Right Flexion (C6) 5 Normal Extension (C7) 5 Normal Left Flexion (C6) 5 Normal Extension (C7) 5 Normal Hip Strength Hip Manual Muscle Testing Right Flexion (L2) 3+ Fair+ Comments Pt sitting Left Flexion (L2) 3 Fair Comments Pt sitting Knee Strength Knee Manual Muscle Testing Right Flexion (S2) 4 Good Extension (L3) 4 Good Left Flexion (S2) 3- Fair- Extension (L3) 3+ Fair+ Ankle/Foot Strength Ankle and Foot Manual Muscle Testing Right Dorsiflexion (L4) 3+ Fair+ Comments Great toe extension 3+/5 Left Dorsiflexion (L4) 3+ Fair+ Comments Great toe extension 3+/5 PT-OP-Q Treatments Start: 07/15/19 10:35 Freq: Status: Active Protocol: Document 08/05/19 15:18 MB (Rec: 08/05/19 15:59 MB [id number]) Therapeutic Exercises Sitting Exercises Pursed-lip breathing Comments 5 reps after gait and O2 sats increased Gait Training Gait Activity Gait trials with rollator Comments Gait with CGA. 60' with rollator, COTO, pushes w/c behind, pt reports weakness behind legs. 46' with rollator and similar asst. O2 sats 93-95% on RA and HR 87 BPM after gait. Pt dyspnea. 113' gait and pt presents with O2 sats 88-93%, increasing to the 90% with pursed-lip breathing. HR 83 BPM. 60' back to waiting room. PT-OP-T Assessment and Plan Start: 07/15/19 10:35 Freq: Status: Active Protocol: Document 08/05/19 15:18 MB (Rec: 08/05/19 15:59 MB [id number]) Physical Therapy Assessment Rehab Potential Rehabilitation Potential Fair Evaluation Complexity Number of Personal Factors/Comorbidities 1-2 Number of Body Systems Impaired 3 Clinical Presentation at Evaluation Evolving Impairments Impairments Activity Tolerance,Balance, Functional Activities, Functional Mobility,Gait,Pain, Posture,ROM,Strength Other Concerns Barriers to Rehabilitation Falls, questionable status of lung CA, pt con't to smoke Goals 4 Gold Beater Goal (LTG) Pt will perform progressive HEP with I including breathing , postural, strengthening and balance exercises to improve strength by 09/27/2019. LTG Duration 8 weeks 3 Mcc Goal (LTG) Pt will deny falls for 2 months by 09/27/2019. LTG Duration 8 weeks 2 Mcc Goal (LTG) Pt will perform 5 reps sit to stand without UE support in less than 13 sec to reflect improved LE strength and pulmonary response to functional mobility by 2019. LTG Duration 8 weeks 1 Mcc Goal (LTG) Pt will gait train at least 800' with LRAD in 6 minutes in order to increase functional gait distance and decrease fall risk by 09/27/2019. LTG Duration 8 weeks Assessment Summary Assessment Pt states that she thinks she would feel better if she could eat. Pt does have MBS scheduled. Progress leg strengthening in sitting. Gait trials with increased distance today. Physical Therapy Plan Frequency and Duration Frequency of Treatment 2x/Week Duration of Treatment 8 weeks Plan of Care Start Date 07/29/19 Plan of Care End Date 09/27/19 Therapeutic Interventions Therapeutic Interventions Balance Training,Canalithic Repositioning,Gait Training, Home Exercise Program,Manual Therapy,Neuromuscular Re- education,Patient/Caregiver Education,Self-Care/Home Management,Soft Tissue Mobilization,Therapeutic Activities,Therapeutic Exercises,Vestibular Rehabilitation,Wheelchair Management Other Referrals/Consults Referrals/Consults Recommended Swallow study Next Visit Focus/Plan Next Note Type Treatment Note Next Visit Plan Initiate exercises
--- NOTE | 2019-08-09 11:25 | PT.OTN ---
Current Diagnoses Malignant neoplasm of unspecified part of unspecified bronchus or lung (08/09/19) Physical Therapy Treatment Note PT-OP-A Visit Information Start: 07/15/19 10:35 Freq: Status: Active Protocol: Document 08/09/19 10:32 MB (Rec: 08/09/19 11:25 MB [id number]) Out-Patient Physical Therapy Visit Information Visit Information Visit Type Treatment Note Visit Note Medicare, unlimited visits Visit Start Time 10:32 Visit Stop Time 11:12 Total Visit Minutes 40 Visit Number 3 PT-OP-B Current Condition Start: 07/15/19 10:35 Freq: Status: Active Protocol: Document 07/29/19 13:06 MB (Rec: 07/29/19 13:52 MB [id number]) Current Condition History of Current Condition Onset Date August 2018 Current Complaints SOB History of Current Condition Pt with history of squamous cell lung CA found 09/15. She underwent chemotherapy January to May 2019. She underwent 21 days of radiation in November and December 2018. Her biggest concern is SOB and COTO with walking. She is walking in the house with walker with 4 wheels. She uses cane in the BR. Her goal is to be able to walk better and remain upright. She has low BP . She has been falling. She fell last week. She feels light- headed when up and her legs give way. She is falling twice a month. She is sleeping in a bed with two pillows. She is having trouble swallowing. It started last summer during radiaion. She has trouble getting her pills down. She is only able to do liquids. She had radiation on the right side of her chest. Pt does not know if she has to have more chemo or not. Her oncologist and she is going to meet a new one next week. PMH includes: ongoing smoking (pt and ), a-fib, HLD, rectal bleed. She does not report dizziness lying down. She found she can only lie on her left side. Her back hurts with lying supine. She feels light-headed when up. She has 2 rails to get into the house and no rail. She uses cane and support. Pt takes a statin and metoprolol. Pt is not taking a blood thinner. Pt has O2 that she uses at home. Pt does not have a problem with pain. Prior Treatments and Tests Chemo and radiation Future Testing and Treatments Planned Pt does not yet know if she needs more chemo or radiation at this time Treatment Goals Patient/Caregiver Goals To walk better and stay upright Prior Functional Status Baseline Function- ADL's Needs Assist Baseline Function- Mobility Needs Assist Baseline Function- Gait With RW in home, cane in bathroom, nearby whe she leaves house Baseline Function- Other Falls Personal Factors Other Personal Factors That May Effect Questionable state of CA Therapy/Recovery PT-OP-C Subjective Start: 07/15/19 10:35 Freq: Status: Active Protocol: Document 08/09/19 10:32 MB (Rec: 08/09/19 11:25 MB [id number]) OP-PT Subjective Patient Comments Patient Comments Pt states that her legs are tired today. They feel weak. She is unsure if her new inhaler is helpful or not yet. PT-OP-G Mobility & Gait Start: 07/29/19 14:45 Freq: Status: Active Protocol: Document 07/29/19 13:06 MB (Rec: 07/29/19 14:48 MB [id number]) OP Mobility Evaluation Transfers Sit to Stand CGA, pt pushes up from w/c OP Gait Assessment Gait Gait Assistance Required: Contact Guard Assist Distance (Feet) 20 Assistive Devices Assistive Device Gait Belt,Front Wheeled Walker Gait Deviations General Gait Pattern Decreased Stride Length, Decreased Feet Clearance, Flexed Trunk Factors Limiting Gait Function Factors Limiting Gait Function Decreased Activity Tolerance, Decreased Strength Comments Gait Comments Pt presents with slow gait and she states that she cannot walk further than 20 feet because she feels her regular symptoms of light-headedness and COTO. O2 sats on RA are 95% and HR is 74 BPM. pushes w/c behind and pt sits back in chair PT-OP-M Strength Start: 07/15/19 10:35 Freq: Status: Active Protocol: Document 07/29/19 13:06 MB (Rec: 07/29/19 14:45 MB [id number]) Shoulder Strength Shoulder Manual Muscle Testing Right Flexion 4 Good Left Flexion 4 Good Elbow/Forearm Strength Elbow and Forearm Manual Muscle Testing Right Flexion (C6) 5 Normal Extension (C7) 5 Normal Left Flexion (C6) 5 Normal Extension (C7) 5 Normal Hip Strength Hip Manual Muscle Testing Right Flexion (L2) 3+ Fair+ Comments Pt sitting Left Flexion (L2) 3 Fair Comments Pt sitting Knee Strength Knee Manual Muscle Testing Right Flexion (S2) 4 Good Extension (L3) 4 Good Left Flexion (S2) 3- Fair- Extension (L3) 3+ Fair+ Ankle/Foot Strength Ankle and Foot Manual Muscle Testing Right Dorsiflexion (L4) 3+ Fair+ Comments Great toe extension 3+/5 Left Dorsiflexion (L4) 3+ Fair+ Comments Great toe extension 3+/5 PT-OP-Q Treatments Start: 07/15/19 10:35 Freq: Status: Active Protocol: Document 08/09/19 10:32 MB (Rec: 08/09/19 11:25 MB [id number]) Cardio Equipment Recumbent Elliptical ([facility] [place] [facility]) Duration (Minutes) 5 Other 1' x1; 2' x2, 1' rest between. HR in 80s-90s and O2 sats in low 90s Therapeutic Exercises Sitting Exercises Scapular retraction and thoracic lift in sitting Comments 3 reps, hold 3 sec, add to HEP Calf stretch in sitting Comments 20 sec each leg and added to HEP Sit to stands without UE use Comments 5 reps in 45 sec, hand use Pursed-lip breathing Comments 2 reps after exercises, added to HEP Gait Training Gait Activity Gait trials with rollator Comments 100' with CGA and rollator, w/ c behind her, performed again after treatment, 100' and pt has stiff lateral left foot and occ decreased foot clearance PT-OP-T Assessment and Plan Start: 07/15/19 10:35 Freq: Status: Active Protocol: Document 08/09/19 10:32 MB (Rec: 08/09/19 11:25 MB [id number]) Physical Therapy Assessment Rehab Potential Rehabilitation Potential Fair Evaluation Complexity Number of Personal Factors/Comorbidities 1-2 Number of Body Systems Impaired 3 Clinical Presentation at Evaluation Evolving Impairments Impairments Activity Tolerance,Balance, Functional Activities, Functional Mobility,Gait,Pain, Posture,ROM,Strength Other Concerns Barriers to Rehabilitation Falls, questionable status of lung CA, pt con't to smoke Goals 4 Longterm Goal (LTG) Pt will perform progressive HEP with I including breathing , postural, strengthening and balance exercises to improve strength by 09/27/2019. LTG Duration 8 weeks 3 Longterm Goal (LTG) Pt will deny falls for 2 months by 09/27/2019. LTG Duration 8 weeks 2 Longterm Goal (LTG) Pt will perform 5 reps sit to stand without UE support in less than 13 sec to reflect improved LE strength and pulmonary response to functional mobility by 2019. LTG Duration 8 weeks 1 Longterm Goal (LTG) Pt will gait train at least 800' with LRAD in 6 minutes in order to increase functional gait distance and decrease fall risk by 09/27/2019. LTG Duration 8 weeks Assessment Summary Assessment Pt requires frequent rest breaks. She presents with O2 desaturation with activity. Sats 93% after short gait and drops to 87% after sit to stands. Increases to low 90s after 2 reps diaphragmatic breathing. Pt requires lots of rest breaks. Physical Therapy Plan Frequency and Duration Frequency of Treatment 2x/Week Duration of Treatment 8 weeks Plan of Care Start Date 07/29/19 Plan of Care End Date 09/27/19 Therapeutic Interventions Therapeutic Interventions Balance Training,Canalithic Repositioning,Gait Training, Home Exercise Program,Manual Therapy,Neuromuscular Re- education,Patient/Caregiver Education,Self-Care/Home Management,Soft Tissue Mobilization,Therapeutic Activities,Therapeutic Exercises,Vestibular Rehabilitation,Wheelchair Management Other Referrals/Consults Referrals/Consults Recommended Swallow study Next Visit Focus/Plan Next Note Type Treatment Note Next Visit Plan Progress exercises
--- NOTE | 2019-08-11 10:48 | PT-OP ANOTE ---
Pt arrives for appointment. She reports concerns because she vomited after CT testing yesterday, vomiting what she had to drink before procedure. She is concerned about how much barium she will have to drink tomorrow. PT speaks with UTILITY BILL COMPLAINTS INVESTIGATOR who educates PT in location of testing and about procedure. PT communicates with pt and . Pt and PT agree to cancel appointment today d/t her complaints of ongoing nausea and feeling like she might vomit. She has ENT appointment on Friday and MBS tomorrow. Con't PT as pt able to participate.
--- NOTE | 2019-08-16 10:02 | PT-OP ANOTE ---
PT speaks with pt's , Kwasi, who states that pt con't to throw up and they have to cancel PT as a result. They went to ENT who states that pt is blocked up where she had radiation in the past. She will see GI doctor on 09/02/2019 and PT and agree that cancelling PT until she gets her swallowing work-up completed is best plan. Will cancel appointments up until September 12.
--- NOTE | 2019-08-23 08:42 | PT.OPDS ---
Current Diagnoses Malignant neoplasm of unspecified part of unspecified bronchus or lung (08/09/19) Visit Care Team Role Provider Type Christofer Tapia DO Primary Care Provider Physician Specialty: Family Practice Address: [address] [place] [address], [id number] Email: Polly Miller DO Attending Provider Physician Specialty: [facility] Address: [address] [place] [address], [address], [place], [address] Email: [email or web address] Visit Number Visit Number 3 Discharge Summary PT-OP-B Current Condition Start: 07/15/19 10:35 Freq: Status: Active Protocol: Document 07/29/19 13:06 MB (Rec: 07/29/19 13:52 MB [id number]) Current Condition History of Current Condition Onset Date August 2018 Current Complaints SOB History of Current Condition Pt with history of squamous cell lung CA found 09/15. She underwent chemotherapy January to May 2019. She underwent 21 days of radiation in November and December 2018. Her biggest concern is SOB and COTO with walking. She is walking in the house with walker with 4 wheels. She uses cane in the BR. Her goal is to be able to walk better and remain upright. She has low BP . She has been falling. She fell last week. She feels light- headed when up and her legs give way. She is falling twice a month. She is sleeping in a bed with two pillows. She is having trouble swallowing. It started last summer during radiaion. She has trouble getting her pills down. She is only able to do liquids. She had radiation on the right side of her chest. Pt does not know if she has to have more chemo or not. Her oncologist and she is going to meet a new one next week. PMH includes: ongoing smoking (pt and ), a-fib, HLD, rectal bleed. She does not report dizziness lying down. She found she can only lie on her left side. Her back hurts with lying supine. She feels light-headed when up. She has 2 rails to get into the house and no rail. She uses cane and support. Pt takes a statin and metoprolol. Pt is not taking a blood thinner. Pt has O2 that she uses at home. Pt does not have a problem with pain. Prior Treatments and Tests Chemo and radiation Future Testing and Treatments Planned Pt does not yet know if she needs more chemo or radiation at this time Treatment Goals Patient/Caregiver Goals To walk better and stay upright Prior Functional Status Baseline Function- ADL's Needs Assist Baseline Function- Mobility Needs Assist Baseline Function- Gait With RW in home, cane in bathroom, nearby whe she leaves house Baseline Function- Other Falls Personal Factors Other Personal Factors That May Effect Questionable state of CA Therapy/Recovery PT-OP-C Subjective Start: 07/15/19 10:35 Freq: Status: Active Protocol: Document 08/09/19 10:32 MB (Rec: 08/09/19 11:25 MB [id number]) OP-PT Subjective Patient Comments Patient Comments Pt states that her legs are tired today. They feel weak. She is unsure if her new inhaler is helpful or not yet. PT-OP-G Mobility & Gait Start: 07/29/19 14:45 Freq: Status: Active Protocol: Document 07/29/19 13:06 MB (Rec: 07/29/19 14:48 MB [id number]) OP Mobility Evaluation Transfers Sit to Stand CGA, pt pushes up from w/c OP Gait Assessment Gait Gait Assistance Required: Contact Guard Assist Distance (Feet) 20 Assistive Devices Assistive Device Gait Belt,Front Wheeled Walker Gait Deviations General Gait Pattern Decreased Stride Length, Decreased Feet Clearance, Flexed Trunk Factors Limiting Gait Function Factors Limiting Gait Function Decreased Activity Tolerance, Decreased Strength Comments Gait Comments Pt presents with slow gait and she states that she cannot walk further than 20 feet because she feels her regular symptoms of light-headedness and COTO. O2 sats on RA are 95% and HR is 74 BPM. pushes w/c behind and pt sits back in chair PT-OP-M Strength Start: 07/15/19 10:35 Freq: Status: Active Protocol: Document 07/29/19 13:06 MB (Rec: 07/29/19 14:45 MB [id number]) Shoulder Strength Shoulder Manual Muscle Testing Right Flexion 4 Good Left Flexion 4 Good Elbow/Forearm Strength Elbow and Forearm Manual Muscle Testing Right Flexion (C6) 5 Normal Extension (C7) 5 Normal Left Flexion (C6) 5 Normal Extension (C7) 5 Normal Hip Strength Hip Manual Muscle Testing Right Flexion (L2) 3+ Fair+ Comments Pt sitting Left Flexion (L2) 3 Fair Comments Pt sitting Knee Strength Knee Manual Muscle Testing Right Flexion (S2) 4 Good Extension (L3) 4 Good Left Flexion (S2) 3- Fair- Extension (L3) 3+ Fair+ Ankle/Foot Strength Ankle and Foot Manual Muscle Testing Right Dorsiflexion (L4) 3+ Fair+ Comments Great toe extension 3+/5 Left Dorsiflexion (L4) 3+ Fair+ Comments Great toe extension 3+/5 PT-OP-T Assessment and Plan Start: 07/15/19 10:35 Freq: Status: Active Protocol: Document 08/23/19 08:41 MB (Rec: 08/23/19 08:42 MB [id number]) Physical Therapy Plan Discharge Physical Therapy Discharge Comments Pt's , Kwasi, calls to state that pt . Will d/c PT.
== END 2019-08-23 09:30 | disposition home or self-care (01) ==
LOC: PHYS 10:30
PROVIDERS: PCP Family Medicine; Visit Provider Family Medicine
DX: C34.90 Malignant neoplasm of unspecified part of unspecified bronchus or lung (principal)
CPT/HCPCS: 97110; 97116; 97162

== ENCOUNTER → 2019-08-10 09:21 | Outpatient (CLI) | payer MEDICARE, SELFPAY ==
[2019-08-10 09:48] LABS: Add Manual Diff / Slide Review NO; Basophils Absolute Auto 100 /uL (0-100); Basophils Percent Auto 0.7 % (0-2); Eosinophils Absolute Auto 100 /uL (0-450); Eosinophils Percent Auto 1.5 % (2-4); Hemoglobin 10.8 g/dL (12.0-16.0); Lymphocytes Absolute Auto 700 /uL (1100-4500); Lymphocytes Percent Auto 8.5 % (25-40); Mean Corpuscular HGB Conc 32.6 % (30-36); Mean Corpuscular Volume 107.3 fL (80-100); Monocytes Absolute Auto 400 /uL (0-900); Monocytes Percent Auto 5.7 % (3-14); Neutrophils Absolute Auto 6600 /uL (1500-7000); Neutrophils Percent Auto 83.6 % (50-75); Platelet Count 289 X10^3/uL (150-400); Red Blood Cell Count 3.08 X10^6/uL (4.0-5.2); Red Cell Distribution Width 16.7 % (11.6-14.8); White Blood Cell Count 7.9 X10^3/uL (4.5-11.0)
[2019-08-10 10:00] LABS: Alanine Aminotransferase 12 IU/L (<35); Albumin 3.9 g/dL (3.5-5.0); Albumin Globulin Ratio 1.3 (1.0-2.8); Alkaline Phosphatase 170 U/L (38-126); Aspartate Aminotransferase 20 IU/L (14-36); BUN Creatinine Ratio 12.2 (6-22); Bilirubin Total 0.3 mg/dL (0.2-1.3); Blood Urea Nitrogen 11 mg/dL (7-17); Calcium 9.8 mg/dL (8.4-10.2); Carbon Dioxide 23 mmol/L (22-32); Chloride 104 mmol/L (98-107); Estimated Glomerular Filt Rate > 60.0 mL/min (>60); Globulin 3.1 g/dL (1.7-4.1); Glucose 95 mg/dL (80-110); HEMOLYSIS < 15 (0-50); Potassium 3.6 mmol/L (3.4-5.1); Sodium 139 mmol/L (137-145)
--- NOTE | 2019-08-10 10:14 | DI.CT.S_ITS ---
PROCEDURE: CT CHEST ABD PEL W CON INDICATIONS: Shortness of breath. Lung cancer TECHNIQUE: After the administration of oral and intravenous contrast, 5 mm thick sections acquired from the lung apices to the symphysis. 5 mm coronal and sagittal reformats were performed, with additional 7 mm coronal MIP reformats through the lungs. For radiation dose reduction, the following was used: automated exposure control, adjustment of mA and/or kV according to patient size. COMPARISON: [facility], CT, CT CHEST W CON, 06/09/2019, 12:07. FINDINGS: Image quality: Excellent. CHEST: Lungs and pleura: There has been interval volume loss and consolidative change peripherally and laterally in the left upper lobe associated with posterior pleural thickening. This accentuates the appearance of anterior left upper lobe reticulation and fibrosis at the midlung level. There are severe emphysematous changes. Right posterior lower lobe lung mass is fairly stable in size and morphology. A small adjacent fat containing right posterior diaphragmatic hernia is unchanged. There is irregular narrowing of the proximal left bronchus as it traverses a low-density area of soft tissue in the left hilar and paraesophageal mediastinum. Mediastinum: There is slightly increased quantity of soft tissue in the subcarinal and periesophageal/ periaortic mediastinum. The esophagus contains oral contrast and there is stable moderate size hiatal hernia, also filled with contrast. Heart size is stable. No pericardial effusion. Thoracic aorta is normal in size. The pulmonary arteries, particularly the right, are enlarged, chronic. Chest wall: No axillary or supraclavicular adenopathy by size criteria. Thyroid gland has normal CT appearance. ABDOMEN: Solid organs: Liver is normal in size and enhancement. Gallbladder has a normal CT appearance. Biliary system is non dilated. Pancreas enhances normally. Spleen is normal in size and enhancement. No adrenal nodules. Kidneys demonstrate normal size and enhancement, without hydronephrosis. There are left renal cysts. Peritoneum and bowel: Bowel loops demonstrate normal wall thickness and caliber. No free fluid or air. Increased quantity of solid stool present. Nodes and vessels: No retroperitoneal or mesenteric adenopathy by size criteria. Aorta and inferior vena cava are normal in size. Miscellaneous: No ventral hernias. PELVIS: Genitourinary: Bladder wall thickness is normal. Miscellaneous: No inguinal hernias or adenopathy. Bones: No suspicious bony lesions. Central superior endplate depression of L2 and minor superior endplate depression of L5. No significant changes since the prior study. IMPRESSION: 1. Development of consolidation and volume loss in peripherally in the left upper lobe, potentially post obstructive due to either radiation change or adenopathy. 2. Subjectively minimally increased quantity of low density tissue in the mediastinum and left hilar region. This may be within normal for postradiation changes. There is no other adenopathy that has developed. 3. There is contrast throughout the esophagus which may be secondary to reflux/esophageal dysmotility. Aspiration precautions should be considered. 4. Severe emphysema. 5. No change in right lower lobe lung mass and small adjacent diaphragmatic hernia. 6. Interval resolution of prior descending colitis. Dictated by: Prabha Vela M.D. on 08/10/2019 at 14:28 Approved by: Prabha Vela M.D. on 08/10/2019 at 14:46
== END ==
PROVIDERS: PCP Family Medicine; Referring Provider Internal Medicine Hematology & Oncology; Visit Provider Internal Medicine Hematology & Oncology
DX: C34.02 Malignant neoplasm of left main bronchus (principal); R06.02 Shortness of breath; R91.8 Other nonspecific abnormal finding of lung field; J43.9 Emphysema, unspecified; K44.9 Diaphragmatic hernia without obstruction or gangrene; N28.1 Cyst of kidney, acquired
CPT/HCPCS: 36415; 71260; 74177; 80053; 85025; Q9967

== ENCOUNTER → 2019-08-12 13:01 | Outpatient (CLI) | payer MEDICARE, SELFPAY ==
--- NOTE | 2019-08-12 13:03 | DI.RAD.S_ITS ---
PROCEDURE: FL BARIUM SWALLOW W SPEECH INDICATIONS: swallowing difficulty TECHNIQUE: Examination was conducted in conjunction with speech pathology per standard protocol. In the lateral projection, filming was performed of the patient swallowing. AP projection filming may also be performed with patient swallowing. COMPARISON: None. FINDINGS: Function: The oral preparatory phase appears normal, with proper containment. The subsequent oral propulsive phase, pharyngeal phase, and esophageal phase of swallowing also appear normal with all proffered substances. There was rare silent flash laryngeal penetration. No tracheal aspiration. Mild residue. Delayed esophageal clearance is noted Morphology: No cricopharyngeal bar is identified. No cervical esophageal webs. No Zenker's diverticulum. No strictures. IMPRESSION: Rare silent flash laryngeal penetration. No tracheal aspiration identified Delayed esophageal clearance, suggesting dysmotility Dictated by: Chuck Mendieta M.D. on 08/12/2019 at 17:11 Approved by: Chuck Mendieta M.D. on 08/12/2019 at 17:13
--- NOTE | 2019-08-12 17:49 | ST.SWALLOW ---
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 Bennett, ENT. Pt c/o the inability to swallow any solids. She states the foods get stuck in her throat, pointing to the area of her sternal notch. Further she states that her difficulty with swallowing started last January during her radiation therapy for lung cancer. Additionally, she described her swallowing difficulty as progressively getting worse. Currently she has put herself on a liquid diet. Subjective Observations Pt was seated in the fluoroscopy chair The directions and procedure of MBSS was presented to the pt. She agreed to proceed. Pt was very anxious about having to swallow barium as she was fearful of throwing up. She had a CT scan 2 days ago and threw up the contrast. Pt was assured that we would proceed slowly and monitor her throughout the procedure, Patient Positioning Position View Lat-A/P Imaging Lateral View Textures Administered Trials Presented Thin Liquid via Spoon,Thin Liquid via Cup,Pudding Thick Liquid via Spoon,Regular Textures,Barium Tablet Oral Phase Source: MBSIMP (TM) (C) Bolus Specific Scoring Grid Lip Closure No Impairment (WNL) Tongue Control During Bolus Hold No Impairment (WNL) Bolus Prep/Mastication Mild Impairment Bolus Transport/Lingual Motion No Impairment (WNL) A/P Lingual Propulsion Delay No Oral Residue WFL Residue Clearing WFL Nasal Regurgitation No Additional Oral Phase Observations Pt did not have lower teeth in mouth today. She was able to masticate a small bite of a cookie with barium paste on it without difficulty. Pharyngeal Phase Source: MBSIMP (TM) (C) Bolus Specific Scoring Grid Delayed Initiation of Pharyngeal Swallow Yes: Premature spillage to the valeculla and pyriform sinuses Number of Seconds Delayed (seconds) ~1-2s Soft Palate Elevation WFL Tongue Base Strength/Range of Motion WFL Residue Along the Tongue Base Yes Laryngeal Elevation Mild Impairment Anterior Hyoid Movement Mild Impairment Epiglottic Range of Motion Minimal Impairment Vallecular Residue No Laryngeal Vestibular Closure Minimal Impairment Pharyngeal Stripping Wave Minimal Impairment Pharyngeal Contraction Minimal Impairment Posterior Pharyngeal Wall Residue trace to minimal Clearance of Posterior Pharyngeal Wall WFL Residue Upper Esophageal Sphincter Opening WFL Residue in the Pyriform Sinuses No Esophageal Clearance Upright Position WFL Pharyngoesophageal Backflow Observed No Additional Pharyngeal Phase Observations Silent flash penetration x1 with 3 consecutive swallows. Flash penetration is not considered unusual for elderly patients. No aspiration observed. No residue remained with in the laryngeal vestibule. A/P View Textures Administered Trials Presented Thin Liquid via Spoon A/P View Observations Residue Observed Pyriform Sinus Right,Pyriform Sinus Left Esophageal Function Poor Motility,Stasis Esophageal Clearance Upright Position Severe Impairment Esophageal Observations Esophageal Function A-P view for esophageal screen indicated there was contrast within pt's esophagus filled to mid-sternum. Pt was c/o feeling of the cookie trial and the barium tablet still stuck and not going down. She was burping and thought she might throw up, but that did not happen. Clinical Impressions Dysphagia Type esophageal dysphagia with stasis/dysmotility Patient Appropriate for Therapy No Recommendations Diet Comments PO as tolerated Aspiration Precautions Additional Precautions Remain upright following PO intake to allow gravity to aid esoph clearance Treatment Plan Recommended Referrals Primary Care Physician,GI Consult,ENT Consult Additional Recommended Referrals HOB up at 30 degrees minimum to reduce reflux and potential aspiration risk Additional Compensatory Strategies Several small meals per day Recommended
== END ==
PROVIDERS: PCP Family Medicine; Referring Provider Family Medicine; Visit Provider Family Medicine
DX: R13.10 Dysphagia, unspecified (principal)
CPT/HCPCS: 74230; 92610; 92611